=== PATIENT | male | born 1965 | race Hispanic/Latino ===

== ENCOUNTER 2017-05-16 02:18 | Emergency (ER) | payer SELFPAY ==
[2017-05-16] MEDS ORDERED: DILAUDID IM ONE (03:05)
[2017-05-16 03:25] LABS: Basophils % (Auto) 0.3 % (0.0-1.8); Eosinophils # (Auto) 0.1 K/mm3 (0.0-0.4); Eosinophils % (Auto) 1.5 % (0.0-4.3); Hematocrit 47.5 % (35.5-45.6); Hemoglobin 16.3 gm/dl (11.8-15.2); Lymphocytes # (Auto) 1.8 K/mm3 (1.2-5.4); Lymphocytes % (Auto) 21.6 % (13.4-35.0); Mean Corpuscular HGB Conc 34 % (32-34); Mean Corpuscular Hemoglobin 32 pg (28-32); Mean Corpuscular Volume 94 fl (84-94); Monocytes # (Auto) 0.7 K/mm3 (0.0-0.8); Monocytes % (Auto) 8.8 % (0.0-7.3); Platelet Count 189 K/mm3 (140-440); Red Blood Count 5.04 M/mm3 (3.65-5.03)
[2017-05-16] MEDS ORDERED: DILAUDID ONE (03:36)
[2017-05-16 03:59] LABS: Alanine Aminotransferase 96 units/L (7-56); Albumin 4.3 g/dL (3.9-5); BUN/Creatinine Ratio 18; Blood Urea Nitrogen 16 mg/dL (9-20); Calcium 9.6 mg/dL (8.4-10.2); Hemolysis Index 16; Lipase 25 units/L (13-60)
--- NOTE | 2017-05-16 04:16 | Ultrasound Report ---
FINAL REPORT EXAM: US TESTICULAR DOPPLER COMP HISTORY: sudden onset pain TECHNIQUE: Routine sonographic evaluation was obtained of the scrotum along with Doppler interrogation of the testicles. FINDINGS: The right testicle is normal size contour blood flow and echotexture measuring 5.3 cm x 2.5 cm x 3.7 cm. The right epididymis is normal in size and echotexture. Lateral to the right testicle is an echogenic mass measuring 4.4 cm x 1.4 cm x 1.3 cm. The left testicle is normal in size contour blood flow and echotexture measuring 5.1 cm x 2.3 cm x 3.4 cm. The left epididymis is normal in size and is remarkable for 5 millimeter cyst. Lateral to the left testicle is an echogenic mass measuring 5.1 cm x 1.7 cm x 1.7 cm. There is no evidence of hydrocele bilaterally. IMPRESSION: No evidence of testicular neoplasia, torsion, or hydrocele. Bilateral echogenic masses lateral to each testicle as described. Clinical correlation is needed with the patient has bilateral inguinal hernias to account for this. 5 mm left epididymal cyst.
--- NOTE | 2017-05-16 09:39 | Emergency Department Report ---
ED Abdominal Pain HPI - General Chief Complaint: Abdominal Pain Stated Complaint: ABD PAIN Time Seen by Provider: 05/16/17 09:39 Source: patient, family Mode of arrival: Wheelchair Limitations: No Limitations - History of Present Illness Initial Comments: Patient is a 52-year-old male who is presenting with lower abdominal pain. Patient states that pain started 24 hours ago. Patient states that the pain radiates into his scrotum is mainly located in the suprapubic area. Patient states he has not been able to urinate since 3 PM yesterday. Patient denies fever nausea vomiting diarrhea. Patient also denies any trauma. Patient states "it feels as though someone kicked me in my groin". Patient states the pain is a 10 out of 10 in severity. Patient denies any noticeable swelling to the scrotum. Severity scale (0 -10): 10 Quality: aching Consistency: constant Improves With: nothing Worsens With: movement Associated Symptoms: denies: nausea, vomiting, diarrhea, fever, dysuria, hematemesis, hematochezia, melena, hematuria - Related Data Home Medications Medication Instructions Recorded Confirmed Last Taken Tizanidine HCl [Zanaflex] 0 mg PO PRN PRN 07/14/14 07/14/14 07/14/14 Previous Rx's Medication Instructions Recorded Last Taken Type HYDROcodone/APAP 5-325 [[place] 1 each PO Q6HR PRN #15 tablet 07/14/14 Unknown Rx 5/325] Naproxen [Naprosyn] 500 mg PO BID #30 tablet 07/14/14 Unknown Rx methOCARBAMOL [Robaxin] 500 mg PO Q6H #30 tablet 07/14/14 Unknown Rx methylPREDNISolone [Medrol Dose 4 mg PO DAILY 6 Days tab 07/14/14 Unknown Rx Les] Ciprofloxacin HCl [Cipro] 500 mg PO BID #20 tablet 05/16/17 Unknown Rx HYDROcodone/APAP 5-325 [[place] 1 each PO Q6HR PRN #15 tablet 05/16/17 Unknown Rx 5/325] Phenazopyridine [Pyridium] 100 mg PO TID #10 tab 05/16/17 Unknown Rx Allergies Allergy/AdvReac Type Severity Reaction Status Date / Time No Known Allergies Allergy Verified 05/16/17 02:50 ED Review of Systems ROS: Stated complaint: ABD PAIN Other details as noted in HPI Comment: All other systems reviewed and negative ED Past Medical Hx - Past Medical History Previous Medical History?: Yes Additional medical history: back injury. kidney stones as teenager - Surgical History Past Surgical History?: Yes Hx Appendectomy: Yes - Social History Smoking Status: Never Smoker Substance Use Type: None - Medications Home Medications: Home Medications Medication Instructions Recorded Confirmed Last Taken Type HYDROcodone/APAP 5-325 [[place] 1 each PO Q6HR PRN #15 tablet 07/14/14 Unknown Rx 5/325] Naproxen [Naprosyn] 500 mg PO BID #30 tablet 07/14/14 Unknown Rx Tizanidine HCl [Zanaflex] 0 mg PO PRN PRN 07/14/14 07/14/14 07/14/14 History methOCARBAMOL [Robaxin] 500 mg PO Q6H #30 tablet 07/14/14 Unknown Rx methylPREDNISolone [Medrol Dose 4 mg PO DAILY 6 Days tab 07/14/14 Unknown Rx Les] Ciprofloxacin HCl [Cipro] 500 mg PO BID #20 tablet 05/16/17 Unknown Rx HYDROcodone/APAP 5-325 [[place] 1 each PO Q6HR PRN #15 tablet 05/16/17 Unknown Rx 5/325] Phenazopyridine [Pyridium] 100 mg PO TID #10 tab 05/16/17 Unknown Rx ED Physical Exam - General Limitations: No Limitations General appearance: alert, in no apparent distress - Head Head exam: Present: atraumatic, normocephalic - Eye Eye exam: Present: normal appearance - ENT ENT exam: Present: mucous membranes moist - Neck Neck exam: Present: normal inspection - Respiratory Respiratory exam: Present: normal lung sounds bilaterally. Absent: respiratory distress - Cardiovascular Cardiovascular Exam: Present: regular rate, normal rhythm. Absent: systolic murmur, diastolic murmur, rubs, gallop - GI/Abdominal GI/Abdominal exam: Present: soft, tenderness (suprapubic), normal bowel sounds. Absent: guarding, rebound - Rectal Rectal exam: Present: deferred - exam: Present: testicular tenderness. Absent: urethral discharge, scrotal swelling External exam: Absent: erythema, swelling, ecchymosis - Extremities Exam Extremities exam: Present: normal inspection - Back Exam Back exam: Present: normal inspection - Neurological Exam Neurological exam: Present: alert, oriented X3 - Psychiatric Psychiatric exam: Present: normal affect, normal mood - Skin Skin exam: Present: warm, dry, intact, normal color. Absent: rash ED Course Vital Signs 05/16/17 05/16/17 02:22 02:45 Temperature 97.7 F 97.7 F Pulse Rate 83 78 Respiratory 18 18 Rate Blood Pressure 156/85 156/85 O2 Sat by Pulse 98 98 Oximetry ED Medical Decision Making - Lab Data Result diagrams: 05/16/17 02:57 05/16/17 02:57 Lab Results 05/16/17 05/16/17 05/16/17 Range/Units 02:57 02:57 09:48 WBC 8.1 (4.5-11.0) K/mm3 RBC 5.04 H (3.65-5.03) M/mm3 Hgb 16.3 H (11.8-15.2) gm/dl Hct 47.5 H (35.5-45.6) % MCV 94 (84-94) fl MCH 32 (28-32) pg MCHC 34 (32-34) % RDW 14.0 (13.2-15.2) % Plt Count 189 (140-440) K/mm3 Lymph % (Auto) 21.6 (13.4-35.0) % Jerome % (Auto) 8.8 H (0.0-7.3) % Eos % (Auto) 1.5 (0.0-4.3) % Baso % (Auto) 0.3 (0.0-1.8) % Lymph # 1.8 (1.2-5.4) K/mm3 Jerome # 0.7 (0.0-0.8) K/mm3 Eos # 0.1 (0.0-0.4) K/mm3 Baso # 0.0 (0.0-0.1) K/mm3 Seg Neutrophils % 67.8 (40.0-70.0) % Seg Neutrophils # 5.5 (1.8-7.7) K/mm3 Sodium 142 (137-145) mmol/L Potassium 4.5 (3.6-5.0) mmol/L Chloride 103.3 (98-107) mmol/L Carbon Dioxide 22 (22-30) mmol/L Anion Gap 21 mmol/L BUN 16 (9-20) mg/dL Creatinine 0.9 (0.8-1.5) mg/dL Estimated GFR > 60 ml/min BUN/Creatinine Ratio 18 % Glucose 107 H (75-100) mg/dL Calcium 9.6 (8.4-10.2) mg/dL Total Bilirubin 1.10 (0.1-1.2) mg/dL AST 73 H (5-40) units/L ALT 96 H (7-56) units/L Alkaline Phosphatase 60 (35-129) units/L Total Protein 7.9 (6.3-8.2) g/dL Albumin 4.3 (3.9-5) g/dL Albumin/Globulin Ratio 1.2 % Lipase 25 (13-60) units/L Urine Color Lisette (Yellow) Urine Turbidity Cloudy (Clear) Urine pH 5.0 (5.0-7.0) Ur Specific [place] 1.030 (1.003-1.030) Urine Protein 30 mg/dl (Negative) mg/dL Urine Glucose (UA) 50 (Negative) mg/dL Urine Ketones Tr (Negative) mg/dL Urine Blood Lg (Negative) Urine Nitrite Neg (Negative) Urine Bilirubin Neg (Negative) Urine Urobilinogen 4.0 (<2.0) mg/dL Ur Leukocyte Esterase Sm (Negative) Urine WBC (Auto) 34.0 H (0.0-6.0) /HPF Urine RBC (Auto) > 182.0 (0.0-6.0) /HPF U Epithel Cells (Auto) 5.0 (0-13.0) /HPF Urine Mucus 3+ /HPF - Radiology Data Ultrasound of the testicles and scrotal interpreted as bilateral scrotal hernias. There is no evidence of epididymoorchitis - Medical Decision Making 11:03 AM patient is feeling better after Percocet. Patient was able to urinate freely on his own. Urinalysis shows hematuria and possible infection. Patient be started on antibiotics be discharged home at this time. Patient also be given surgery follow-up regarding hernias Critical care attestation.: If time is entered above; I have spent that time in minutes in the direct care of this critically ill patient, excluding procedure time. ED Disposition Clinical Impression: Acute cystitis with hematuria Inguinal hernia Qualifiers: Obstruction and gangrene presence: without obstruction or gangrene Laterality: bilateral Recurrence: non-recurrent Qualified Code(s): K40.20 - Bilateral inguinal hernia, without obstruction or gangrene, not specified as recurrent Disposition: DC-01 TO HOME OR SELFCARE Is pt being admited?: No Does the pt Need Aspirin: No Condition: Fair Instructions: Urinary Tract Infection in Men (ED), Inguinal Hernia (ED) Prescriptions: Ciprofloxacin HCl [Cipro] 500 mg PO BID #20 tablet HYDROcodone/APAP 5-325 [[place] 5/325] 1 each PO Q6HR PRN #15 tablet PRN Reason: Pain Phenazopyridine [Pyridium] 100 mg PO TID #10 tab Referrals: MARIA EUGENIA LAGUNA MD [Staff Physician] - 3-5 Days
[2017-05-16] MEDS ORDERED: PERCOCET 5/325 PO ONE (09:41)
[2017-05-16 10:15] LABS: Bilirubin,Urine NEG (Negative); Blood,Urine LG (Negative); Color,Urine Amber (Yellow); Mucus,Urine 3+ /HPF; Nitrite,Urine NEG (Negative)
[2017-05-16 10:18] LABS: RBC,Urine > 182.0 /HPF (0.0-6.0)
[2017-05-16 11:59] VITALS: BP 143/89
== END 2017-05-16 11:58 | disposition home or self-care (01) ==
LOC: ED 02:18
DX: K40.90 Unilateral inguinal hernia, without obstruction or gangrene, not specified as recurrent (principal); N30.01 Acute cystitis with hematuria
CPT/HCPCS: 36415; 80053; 81001; 83690; 85025; 93975; 96372; 99284; J1170

== ENCOUNTER 2019-07-01 08:33 | Emergency (ER) | payer SELFPAY ==
[2019-07-01] MEDS ORDERED: IPRATROPIUM/ALBUTEROL SULFATE 3 ML AMPUL.NEB IH ONE (09:28)
[2019-07-01 09:29] LABS: ABG Base Excess 1.7 mmol/L (-2.0-3.0); ABG HCO3 26.6 mmol/L (20.0-26.0); ABG Methemoglobin 0.5 % (0.0-1.5); ABG Oxygen Saturation 99.1 % (95.0-99.0); ABG PCO2 42.4 mm Hg; ABG PH 7.415 pH Units (7.350-7.450); ABG PO2 167.7 mm Hg (80.0-90.0)
[2019-07-01 09:33] LABS: Basophils % (Auto) 0.4 % (0.0-1.8); Eosinophils # (Auto) 0.1 K/mm3 (0.0-0.4); Eosinophils % (Auto) 2.3 % (0.0-4.3); Hematocrit 44.6 % (35.5-45.6); Hemoglobin 15.3 gm/dl (11.8-15.2); Lymphocytes # (Auto) 1.8 K/mm3 (1.2-5.4); Mean Corpuscular HGB Conc 34 % (32-34); Mean Corpuscular Volume 95 fl (84-94); Monocytes # (Auto) 0.5 K/mm3 (0.0-0.8); Monocytes % (Auto) 11.5 % (0.0-7.3); Platelet Count 197 K/mm3 (140-440); Red Cell Distribution Width 14.1 % (13.2-15.2)
[2019-07-01 09:56] LABS: Alanine Aminotransferase 42 units/L (7-56); BUN/Creatinine Ratio 17; Blood Urea Nitrogen 17 mg/dL (9-20); Hemolysis Index 20
--- NOTE | 2019-07-01 10:02 | Emergency Department Report ---
HPI - General Chief Complaint: Dyspnea/Respdistress Time Seen by Provider: 07/01/19 09:04 - HPI HPI: 54-year-old male presents to the emergency department from home with complaint of headache, lightheadedness, shortness of breath that started after the patient was working in his garage from about 1 AM until 6 AM and he had a gas generator running during this time. He says he was going in and out of the garage and was not there for the full 6 hours. He denies any numbness, blurry vision, facial asymmetry, weakness. He denies any significant past medical history. He denies any tobacco or illicit drug use. ED Past Medical Hx - Past Medical History Previous Medical History?: Yes Additional medical history: back injury. kidney stones as teenager - Surgical History Past Surgical History?: Yes Hx Appendectomy: Yes - Social History Smoking Status: Never Smoker Substance Use Type: None - Medications Home Medications: Home Medications Medication Instructions Recorded Confirmed Last Taken Type HYDROcodone/APAP 5-325 [[place] 1 each PO Q6HR PRN #15 tablet 07/14/14 Unknown Rx 5/325] Naproxen [Naprosyn] 500 mg PO BID #30 tablet 07/14/14 Unknown Rx Tizanidine HCl [Zanaflex] 0 mg PO PRN PRN 07/14/14 07/14/14 07/14/14 History methOCARBAMOL [Robaxin] 500 mg PO Q6H #30 tablet 07/14/14 Unknown Rx methylPREDNISolone [Medrol Dose 4 mg PO DAILY 6 Days tab 07/14/14 Unknown Rx Les] Ciprofloxacin HCl [Cipro] 500 mg PO BID #20 tablet 05/16/17 Unknown Rx HYDROcodone/APAP 5-325 [[place] 1 each PO Q6HR PRN #15 tablet 05/16/17 Unknown Rx 5/325] Phenazopyridine [Pyridium] 100 mg PO TID #10 tab 05/16/17 Unknown Rx ED Review of Systems ROS: Stated complaint: CARBON MINOXIDE POSION Other details as noted in HPI Comment: All other systems reviewed and negative Constitutional: denies: chills, fever Eyes: denies: eye pain, vision change ENT: denies: ear pain, throat pain Respiratory: shortness of breath. denies: cough Cardiovascular: denies: palpitations, edema Gastrointestinal: denies: abdominal pain, vomiting Genitourinary: denies: dysuria, discharge Musculoskeletal: denies: back pain, arthralgia Skin: denies: rash, lesions Neurological: headache, other (Dizziness/lightheadedness) Physical Exam - Physical Exam Vital Signs: Vital Signs 07/01/19 07/01/19 07/01/19 08:46 09:32 09:50 Temperature 97.8 F Pulse Rate 80 69 Pulse Rate [ 66 Anterior Bilateral Throughout] Respiratory 20 14 Rate Respiratory 20 Rate [Anterior Bilateral Throughout] Blood Pressure 139/83 121/79 [Right] O2 Sat by Pulse 99 Oximetry Physical Exam: GENERAL: The patient is well-developed well-nourished. HENT: Normocephalic. Atraumatic. Patient has moist mucous membranes. EYES: Extraocular motions are intact. Pupils equal reactive to light bilaterally. No nystagmus. NECK: Supple. Trachea is midline. CHEST/LUNGS: Clear to auscultation. Mild tachypnea but no accessory muscle use. There is no respiratory distress noted. HEART/CARDIOVASCULAR: Regular. There is no tachycardia. There is no murmur. ABDOMEN: Abdomen is soft, nontender. Patient has normal bowel sounds. There is no abdominal distention. SKIN: Skin is warm and dry. NEURO: The patient is awake, alert, and oriented. The patient is cooperative. The patient has no focal neurologic deficits. Normal speech. Cranial nerves II through XII grossly intact. MUSCULOSKELETAL: There is no tenderness or deformity. There is no limitation range of motion. There is no evidence of acute injury. ED Course Vital Signs 07/01/19 07/01/19 07/01/19 08:46 09:32 09:50 Temperature 97.8 F Pulse Rate 80 69 Pulse Rate [ 66 Anterior Bilateral Throughout] Respiratory 20 14 Rate Respiratory 20 Rate [Anterior Bilateral Throughout] Blood Pressure 139/83 121/79 [Right] O2 Sat by Pulse 99 Oximetry - ABG Interpretation Ph: 7.415 PCO2: 42 PO2: 167 Bicarbonate: 26 Interpretation: normal ED Medical Decision Making - Lab Data Result diagrams: 07/01/19 09:13 07/01/19 09:13 - EKG Data -: EKG Interpreted by Ri EKG shows normal: sinus rhythm (PACs), axis, intervals, QRS complexes, ST-T waves Rate: normal - EKG Data When compared to previous EKG there are: previous EKG unavailable Interpretation: normal EKG - Radiology Data Radiology results: image reviewed interpreted by me: Chest x-ray does not show any acute process. There are no pleural effusions, obvious pneumonia and there is no pneumothorax. - Medical Decision Making This patient presents to the emergency department with a complaint of a headache, some shortness of breath, after working in his garage for about 5 hours intermittently with a gas generator running. The patient appears to have had carbon monoxide exposure as his carboxyhemoglobin level came in at 17. He was placed on a nonrebreather for a few hours and the repeat carboxyhemoglobin level came down to 3. I was in contact with poison control who recommended monitoring for a few hours and making sure the carboxyhemoglobin level had gone down. They also asked for a second troponin, which did come back negative. The patient was reevaluated multiple times and says he is feeling greatly improved and his symptoms have resolved. The patient never had any focal, motor or sensory deficits and his cranial nerves have remained intact. We discussed proper ventilation. The patient will return to the emergency department with any worsening of his symptoms or any acute distress. - Differential Diagnosis Carbon monoxide poisoning, migraine, asthma, bronchitis Critical Care Time: No Critical care attestation.: If time is entered above; I have spent that time in minutes in the direct care of this critically ill patient, excluding procedure time. ED Disposition Clinical Impression: Carbon monoxide exposure Disposition: DC-01 TO HOME OR SELFCARE Is pt being admited?: No Condition: Stable Instructions: Carbon Monoxide Exposure (ED) Additional Instructions: Please make sure that your garage door is open or there is appropriate ventilation when using your generator or if the car engine is running. Please follow-up with your primary care physician in the next few days. Return to the emergency department with any worsening of your symptoms or any acute distress. Referrals: PRIMARY CARE, [Primary Care Provider] - 2-3 Days Time of Disposition: 15:00
--- NOTE | 2019-07-01 10:22 | XRay Report ---
CHEST 1 VIEW 07/01/2019 9:28 AM INDICATION / CLINICAL INFORMATION: SOB. COMPARISON: None available. FINDINGS: SUPPORT DEVICES: None. HEART / MEDIASTINUM: Normal heart size. Atherosclerosis in the thoracic aorta. LUNGS / PLEURA: No significant pulmonary or pleural abnormality. No pneumothorax. ADDITIONAL FINDINGS: No significant additional findings. IMPRESSION: 1. No acute findings. Signer Name: Montana Gutiérrez MD Signed: 07/01/2019 10:18 AM Workstation Name: [id number]
[2019-07-01 13:36] LABS: ABG Base Excess 0.9 mmol/L (-2.0-3.0); ABG HCO3 25.7 mmol/L (20.0-26.0); ABG Methemoglobin 0.7 % (0.0-1.5); ABG Oxygen Saturation 99.6 % (95.0-99.0); ABG PCO2 41.6 mm Hg; ABG PH 7.409 pH Units (7.350-7.450)
[2019-07-01 13:51] LABS: ABG PO2 513.7 mm Hg (80.0-90.0)
[2019-07-01 16:05] VITALS: BP 119/75
== END 2019-07-01 15:40 | disposition home or self-care (01) ==
LOC: ED 08:33
DX: Z57.5 Occupational exposure to toxic agents in other industries (principal); Z90.49 Acquired absence of other specified parts of digestive tract; Z79.899 Other long term (current) drug therapy
CPT/HCPCS: 36415; 71045; 80053; 82803; 84484; 85025; 93005; 93010; 94640; 94644

== ENCOUNTER 2020-08-03 05:09 | Emergency (ER) | payer SELFPAY ==
[2020-08-03] MEDS ORDERED: IBUPROFEN 800 MG TAB PO ONE (05:21)
[2020-08-03] MEDS ORDERED: oxyCODONE /ACETAMINOPHEN 5-325MG TAB PO ONE (05:21)
[2020-08-03] MEDS ORDERED: TETANUS,DIPH,PERTUSS(ACELL) VACCINE 0.5 ML SYRINGE IM ONE (05:21)
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
[2020-08-03 06:35] VITALS: BP 125/82
== END 2020-08-03 07:15 | disposition home or self-care (01) ==
LOC: ED 05:09
DX: T21.15XA Burn of first degree of buttock, initial encounter (principal); T24.219A Burn of second degree of unspecified thigh, initial encounter; Z79.899 Other long term (current) drug therapy; Z90.49 Acquired absence of other specified parts of digestive tract; X08.8XXA Exposure to other specified smoke, fire and flames, initial encounter; Y93.89 Activity, other specified; Y92.89 Other specified places as the place of occurrence of the external cause; Y99.8 Other external cause status
CPT/HCPCS: 90471; 90715; 99282

== ENCOUNTER 2020-09-23 10:28 | Emergency (ER) | payer SELFPAY ==
[2020-09-23] MEDS ORDERED: dexAMETHasone 20 MG/5 ML VIAL IV ONE (11:13)
[2020-09-23] MEDS ORDERED: MORPHINE 4 MG/1 ML INJ IV ONE (11:13)
[2020-09-23] MEDS ORDERED: ONDANSETRON 4 MG/2 ML INJ IV ONE (11:16)
--- NOTE | 2020-09-23 11:17 | Emergency Department Report ---
ED Back Pain/Injury HPI - General Chief Complaint: Back Pain/Injury Stated Complaint: BACK PAIN Time Seen by Provider: 09/23/20 11:07 Source: patient Limitations: No Limitations - History of Present Illness Initial Comments: Chief complaint: "Pressure in my back." HPI: This is a 55-year-old male with history of chronic back pain, kidney stone, inguinal hernia who presents with lower back pain. Pain pressure sensation. Severe. No recent trauma. Patient denies leg weakness. Denies fever. 10 out of 10 pain. No radiation. No vomiting. No hematuria. MD Complaint: back pain -: Sudden, This morning Similar Symptoms Previously: Yes Place: home Severity: severe Severity scale (0 -10): 10 Quality: other (Pressure sensation) Consistency: constant Improves With: none Worsens With: none Associated Symptoms: denies other symptoms Treatments Prior to Arrival: other (Patient received ketorolac via EMS) - Related Data Home Medications Medication Instructions Recorded Confirmed Last Taken Tizanidine HCl [Zanaflex] 0 mg PO PRN PRN 07/14/14 07/14/14 07/14/14 Previous Rx's Medication Instructions Recorded Last Taken Type HYDROcodone/APAP 5-325 [[place] 1 each PO Q6HR PRN #15 tablet 07/14/14 Unknown Rx 5/325] Naproxen [Naprosyn] 500 mg PO BID #30 tablet 07/14/14 Unknown Rx methOCARBAMOL [Robaxin] 500 mg PO Q6H #30 tablet 07/14/14 Unknown Rx methylPREDNISolone [Medrol Dose 4 mg PO DAILY 6 Days tab 07/14/14 Unknown Rx Les] Ciprofloxacin HCl [Cipro] 500 mg PO BID #20 tablet 05/16/17 Unknown Rx HYDROcodone/APAP 5-325 [[place] 1 each PO Q6HR PRN #15 tablet 05/16/17 Unknown Rx 5/325] Phenazopyridine [Pyridium] 100 mg PO TID #10 tab 05/16/17 Unknown Rx HYDROcodone/APAP 5-325 [[place] 1 each PO Q4HR PRN #15 tablet 08/03/20 Unknown Rx 5/325] Ibuprofen [Motrin 400 MG tab] 400 mg PO TID 5 Days #15 tablet 08/03/20 Unknown Rx Silver Sulfadiazine [Silvadene] 1 applic TP BID 14 Days #1 08/03/20 Unknown Rx cream..g. Cyclobenzaprine [Flexeril] 10 mg PO TID PRN #20 tablet 09/23/20 Unknown Rx Ibuprofen [Motrin 800 MG tab] 800 mg PO Q8HR PRN #15 tablet 09/23/20 Unknown Rx oxyCODONE /ACETAMINOPHEN [Percocet 1 tab PO Q6HR PRN #10 tablet 09/23/20 Unknown Rx 5/325] Allergies Allergy/AdvReac Type Severity Reaction Status Date / Time No Known Allergies Allergy Verified 05/16/17 02:50 ED Review of Systems ROS: Stated complaint: BACK PAIN Other details as noted in HPI Comment: All other systems reviewed and negative Constitutional: denies: fever, malaise Respiratory: denies: shortness of breath Cardiovascular: denies: chest pain Gastrointestinal: denies: abdominal pain, nausea, vomiting Musculoskeletal: back pain ED Past Medical Hx - Past Medical History Previous Medical History?: Yes Additional medical history: back injury. kidney stones as teenager - Surgical History Past Surgical History?: Yes Hx Appendectomy: Yes - Social History Smoking Status: Never Smoker Substance Use Type: None - Medications Home Medications: Home Medications Medication Instructions Recorded Confirmed Last Taken Type HYDROcodone/APAP 5-325 [[place] 1 each PO Q6HR PRN #15 tablet 07/14/14 Unknown Rx 5/325] Naproxen [Naprosyn] 500 mg PO BID #30 tablet 07/14/14 Unknown Rx Tizanidine HCl [Zanaflex] 0 mg PO PRN PRN 07/14/14 07/14/14 07/14/14 History methOCARBAMOL [Robaxin] 500 mg PO Q6H #30 tablet 07/14/14 Unknown Rx methylPREDNISolone [Medrol Dose 4 mg PO DAILY 6 Days tab 07/14/14 Unknown Rx Les] Ciprofloxacin HCl [Cipro] 500 mg PO BID #20 tablet 05/16/17 Unknown Rx HYDROcodone/APAP 5-325 [[place] 1 each PO Q6HR PRN #15 tablet 05/16/17 Unknown Rx 5/325] Phenazopyridine [Pyridium] 100 mg PO TID #10 tab 05/16/17 Unknown Rx HYDROcodone/APAP 5-325 [[place] 1 each PO Q4HR PRN #15 tablet 08/03/20 Unknown Rx 5/325] Ibuprofen [Motrin 400 MG tab] 400 mg PO TID 5 Days #15 tablet 08/03/20 Unknown Rx Silver Sulfadiazine [Silvadene] 1 applic TP BID 14 Days #1 08/03/20 Unknown Rx cream..g. Cyclobenzaprine [Flexeril] 10 mg PO TID PRN #20 tablet 09/23/20 Unknown Rx Ibuprofen [Motrin 800 MG tab] 800 mg PO Q8HR PRN #15 tablet 09/23/20 Unknown Rx oxyCODONE /ACETAMINOPHEN [Percocet 1 tab PO Q6HR PRN #10 tablet 09/23/20 Unknown Rx 5/325] ED Physical Exam - General Limitations: No Limitations General appearance: alert, in no apparent distress, other (Patient is sleeping appears comfortable) - Head Head exam: Present: atraumatic, normocephalic - Eye Eye exam: Present: normal appearance - ENT ENT exam: Present: mucous membranes moist - Neck Neck exam: Present: normal inspection, full ROM - Respiratory Respiratory exam: Present: normal lung sounds bilaterally. Absent: respiratory distress - Cardiovascular Cardiovascular Exam: Present: regular rate, normal rhythm, normal heart sounds. Absent: systolic murmur, diastolic murmur, rubs, gallop - GI/Abdominal GI/Abdominal exam: Present: soft, normal bowel sounds. Absent: distended, tenderness, guarding, rebound - Rectal Rectal exam: Present: deferred - Extremities Exam Extremities exam: Present: normal inspection - Back Exam Back exam: Present: normal inspection, full ROM. Absent: CVA tenderness (R), CVA tenderness (L), muscle spasm, paraspinal tenderness - Neurological Exam Neurological exam: Present: alert, oriented X3, normal gait - Psychiatric Psychiatric exam: Present: normal affect, normal mood - Skin Skin exam: Present: warm, dry, intact, normal color. Absent: rash ED Course Vital Signs 09/23/20 09/23/20 10:32 12:07 Temperature 98.6 F Pulse Rate 84 99 H Respiratory 24 16 Rate Blood Pressure 170/92 138/67 [Right] O2 Sat by Pulse 96 93 Oximetry ED Medical Decision Making - Radiology Data Radiology results: report reviewed Patient Name: MAXIME ALVARADO Gender: Male Date of : 1965 Referring Provider: ROSEY PERES Organization: [facility] Accession Number: [id number] Requested Date: September 23, 2020 11:14 Report Status: Final Requested Procedure: 1 Procedure Description: CT lumbar spine wo con Modality: CT Findings Reporting MD: Ezio Gonzalez Dictation Time: September 23, 2020 11:04 Supervisor Accounting Clerks: Not available Glassie Date: CT lumbar spine wo con INDICATION / CLINICAL INFORMATION: 55 years Male; severe back pain. TECHNIQUE: Axial CT images of the lumbar spine were obtained with sagittal and coronal reconstructions. All CT scans at this location are performed using CT dose reduction for ALARA by means of automated exposure control. COMPARISON: None available. FINDINGS: POST-SURGICAL CHANGES: None. ALIGNMENT: There is mild curvature the lumbar spine, convex toward the left at. There is no significant spondylolisthesis. VERTEBRAE: There is a well-corticated lucency involving the right pars interarticularis of L5 most consistent with spondylolysis . There is multilevel anterior osteophytic formation involving lumbar segments at. There is no CT evidence of acute compression or fracture. INTERVERTEBRAL DISCS: There are degenerative endplate cystic changes on the left L5-S1 with mild left neural foraminal narrowing at. There is a slight disc bulge at L4-5 without central stenosis. Th ere is mild right foraminal narrowing at this level. The disc bulge L3-4 appears to mildly flatten the ventral thecal sac. The neural foramen are patent at. There is a milder disc bulge at L3-4 also with mild deformity of the thecal sac at. PARASPINAL SOFT TISSUES: No significant abnormality. ADDITIONAL FINDINGS: None. IMPRESSION: 1. The findings are most consistent with spondylolysis on the right at L5 as detailed above. There is no clear CT evidence of acute fracture involving the lumbar spine. 2. There are multilevel degenerative the changes as detailed above. Signer Name: Ezio Gonzalez MD Signed: 09/23/2020 11:04 AM Workstation Name: [id number] Patient Name: MAXIME ALVARADO Gender: Male Date of : 1965 Referring Provider: ROSEY PERES Organization: [facility] Accession Number: [id number] Requested Date: September 23, 2020 11:14 Report Status: Final Requested Procedure: 1 Procedure Description: CT abdomen pelvis wo con Modality: CT Findings Reporting MD: Adam Sweet Dictation Time: September 23, 2020 11:03 Supervisor Accounting Clerks: Not available Glassie Date: CT ABDOMEN AND PELVIS WITHOUT CONTRAST INDICATION / CLINICAL INFORMATION: back pain hx of kidney stone. TECHNIQUE: Axial CT images were obtained through the abdomen and pelvis without IV contrast. Sagittal and coronal reformatted images. All CT scans at this location are performed using CT dose reduction for ALARA by means of automated exposure control. COMPARISON: None available. FINDINGS: LOWER CHEST: No significant abnormality. LIVER: No significant abnormality. GALLBLADDER: No significant abnormality. BILE DUCTS: No significant abnormality. PANCREAS: No significant abnormality. SPLEEN: No significant abnormality. ADRENALS: No significant abnormality. RIGHT KIDNEY and URETER: A few tiny punctate calyceal stones are suspected near the inferior pole. No focal renal lesion or hydronephrosis. No obvious ureteral stones. LEFT KIDNEY and URETER: A few tiny punctate calyceal stones are suspected. No focal renal lesion or hydronephrosis. No obvious ureteral stones. STOMACH and SMALL BOWEL: No significant abnormality. COLON: There is moderate fecal retention. No obstruction or focal inflammation. APPENDIX: Not identified PERITONEUM: No free fluid. No free air. No fluid collection. LYMPH NODES: No significant adenopathy. AORTA and ARTERIES: No significant abnormality. IVC and VEINS: No significant abnormality. URINARY BLADDER: No significant abnormality. REPRODUCTIVE ORGANS: No significant abnormality. ADDITIONAL FINDINGS: None. SKELETAL SYSTEM: Mild thoracolumbar spondylosis. No acute osseous findings. IMPRESSION: A few bilateral punctate renal calyceal stones are identified. No ureteral stones or hydronephrosis. Mild to moderate constipation. Mild degenerative changes in the thoracolumbar spine. Signer Name: Adam Sweet Jr, MD [facility] [address] , [address] [place] [address] P [phone] [facility] - Report exported on September 23, 2020 13:14:41 -0500 - Page 2 of 2 Signed: 09/23/2020 11:03 AM Workstation Name: [id number] - Medical Decision Making Acute on chronic back pain due to multilevel lumbar degenerative disc disease. CT scan ruled out obstructive ureteral stone. Refer to spine surgeon Dr. Castanon. Percocet ibuprofen Flexeril prescribed. No red flags to indicate acute emergent condition such as cauda equina or spinal cord. No recent trauma, fever, IV drug use, advanced age. Critical care attestation.: If time is entered above; I have spent that time in minutes in the direct care of this critically ill patient, excluding procedure time. ED Disposition Clinical Impression: Acute back pain, Lumbar degenerative disc disease, History of kidney stones Disposition: TO HOME OR SELFCARE Is pt being admited?: No Does the pt Need Aspirin: No Condition: Stable Instructions: Degenerative Disk Disease Prescriptions: Cyclobenzaprine [Flexeril] 10 mg PO TID PRN #20 tablet PRN Reason: Muscle Spasm Ibuprofen [Motrin 800 MG tab] 800 mg PO Q8HR PRN #15 tablet PRN Reason: Pain , Severe (7-10) oxyCODONE /ACETAMINOPHEN [Percocet 5/325] 1 tab PO Q6HR PRN #10 tablet PRN Reason: Pain Referrals: PABLO CASTANON II, MD [Staff Physician] - 3-5 Days
--- NOTE | 2020-09-23 12:07 | Cat Scan Report ---
CT ABDOMEN AND PELVIS WITHOUT CONTRAST INDICATION / CLINICAL INFORMATION: back pain hx of kidney stone. TECHNIQUE: Axial CT images were obtained through the abdomen and pelvis without IV contrast. Sagittal and horan l reformatted images. All CT scans at this location are performed using CT dose reduction for ALARA b y means of automated exposure control. COMPARISON: None available. FINDINGS: LOWER CHEST: No significant abnormality. LIVER: No significant abnormality. GALLBLADDER: No significant abnormality. BILE DUCTS: No significant abnormality. PANCREAS: No significant abnormality. SPLEEN: No significant abnormality. ADRENALS: No significant abnormality. RIGHT KIDNEY and URETER: A few tiny punctate calyceal stones are suspected near the inferior pole. No focal renal lesion or hydronephrosis. No obvious ureteral stones. LEFT KIDNEY and URETER: A few tiny punctate calyceal stones are suspected. No focal renal lesion or h ydronephrosis. No obvious ureteral stones. STOMACH and SMALL BOWEL: No significant abnormality. COLON: There is moderate fecal retention. No obstruction or focal inflammation. APPENDIX: Not identified PERITONEUM: No free fluid. No free air. No fluid collection. LYMPH NODES: No significant adenopathy. AORTA and ARTERIES: No significant abnormality. IVC and VEINS: No significant abnormality. URINARY BLADDER: No significant abnormality. REPRODUCTIVE ORGANS: No significant abnormality. ADDITIONAL FINDINGS: None. SKELETAL SYSTEM: Mild thoracolumbar spondylosis. No acute osseous findings. IMPRESSION: A few bilateral punctate renal calyceal stones are identified. No ureteral stones or hydronephrosis. Mild to moderate constipation. Mild degenerative changes in the thoracolumbar spine. Signer Name: Adam Sweet Jr, MD Signed: 09/23/2020 12:03 PM Workstation Name: [id number]
[2020-09-23 12:08] VITALS: BP 138/67
--- NOTE | 2020-09-23 12:08 | Cat Scan Report ---
CT lumbar spine wo con INDICATION / CLINICAL INFORMATION: 55 years Male; severe back pain. TECHNIQUE: Axial CT images of the lumbar spine were obtained with sagittal and coronal reconstructions. All CT s cans at this location are performed using CT dose reduction for ALARA by means of automated exposure control. COMPARISON: None available. FINDINGS: POST-SURGICAL CHANGES: None. ALIGNMENT: There is mild curvature the lumbar spine, convex toward the left at. There is no significa nt spondylolisthesis. VERTEBRAE: There is a well-corticated lucency involving the right pars interarticularis of L5 most co nsistent with spondylolysis . There is multilevel anterior osteophytic formation involving lumbar seg ments at. There is no CT evidence of acute compression or fracture. INTERVERTEBRAL DISCS: There are degenerative endplate cystic changes on the left L5-S1 with mild left neural foraminal narrowing at. There is a slight disc bulge at L4-5 without central stenosis. There is mild right foraminal narrowing at this level. The disc bulge L3-4 appears to mildly flatten the ventral thecal sac. The neural foramen are patent a t. There is a milder disc bulge at L3-4 also with mild deformity of the thecal sac at. PARASPINAL SOFT TISSUES: No significant abnormality. ADDITIONAL FINDINGS: None. IMPRESSION: 1. The findings are most consistent with spondylolysis on the right at L5 as detailed above. There is no clear CT evidence of acute fracture involving the lumbar spine. 2. There are multilevel degenerative the changes as detailed above. Signer Name: Ezio Gonzalez MD Signed: 09/23/2020 12:04 PM Workstation Name: [id number]
== END 2020-09-23 16:19 | disposition home or self-care (01) ==
LOC: ED 10:28
DX: M51.36 Other intervertebral disc degeneration, lumbar region (principal); Z87.442 Personal history of urinary calculi; K40.90 Unilateral inguinal hernia, without obstruction or gangrene, not specified as recurrent; Z90.49 Acquired absence of other specified parts of digestive tract; Z98.890 Other specified postprocedural states; Z79.899 Other long term (current) drug therapy
CPT/HCPCS: 72131; 74176; 96374; 96375; 99284; J1100; J2270; J2405

== ENCOUNTER 2021-01-16 14:29 | Inpatient (IN) | payer OTHER, SELFPAY ==
[2021-01-16] MEDS ORDERED: dexAMETHasone 4 MG/ML VIAL IV ONE (15:17)
[2021-01-16] MEDS ORDERED: SODIUM CHLORIDE 0.9% 1000 ML 1,000 ML IV ONE (15:17)
[2021-01-16] MEDS ORDERED: IPRATROPIUM/ALBUTEROL SULFATE 3 ML AMPUL.NEB IH ONE (15:17)
[2021-01-16 15:42] LABS: Basophils % (Auto) 0.4 % (0.0-1.8); Hematocrit 48.1 % (35.5-45.6); Hemoglobin 16.8 gm/dl (11.8-15.2); Lymphocytes # (Auto) 0.3 K/mm3 (1.2-5.4); Lymphocytes % (Auto) 8.5 % (13.4-35.0); Mean Corpuscular HGB Conc 35 % (32-34); Mean Corpuscular Volume 93 fl (84-94); Monocytes # (Auto) 0.4 K/mm3 (0.0-0.8); Monocytes % (Auto) 11.4 % (0.0-7.3); Platelet Count 113 K/mm3 (140-440); Red Blood Count 5.16 M/mm3 (3.65-5.03); Red Cell Distribution Width 13.6 % (13.2-15.2)
[2021-01-16] MEDS ORDERED: AZITHROMYCIN/NS 500 MG/250 ML 500 MG/250 ML BAG IV ONE (15:47)
[2021-01-16] MEDS ORDERED: cefTRIAXone/NS 2 GM/100 ML 2 GM/100 ML BAG IV ONE (15:47)
--- NOTE | 2021-01-16 15:51 | XRay Report ---
XR chest routine 2V INDICATION / CLINICAL INFORMATION: SOB, CP. COMPARISON: 07/01/2019 FINDINGS: SUPPORT DEVICES: None. HEART /PULMONARY VASCULATURE: No significant abnormality. LUNGS / PLEURA: Patchy bilateral airspace consolidation, most pronounced within the left mid and lowe r lung. No sizable pleural effusion. No pneumothorax. ADDITIONAL FINDINGS: No significant additional findings. IMPRESSION: Bilateral pulmonary airspace disease, most pronounced within the left mid to lower lung. Findings are most consistent with pneumonia. Signer Name: Jose Hein MD Signed: 01/16/2021 3:47 PM Workstation Name: [id number]
[2021-01-16 15:57] LABS: Alanine Aminotransferase 26 units/L (7-56); Albumin 3.3 g/dL (3.9-5); BUN/Creatinine Ratio 23; Blood Urea Nitrogen 18 mg/dL (9-20); Calcium 8.5 mg/dL (8.4-10.2); Hemolysis Index 6
--- NOTE | 2021-01-16 16:35 | Emergency Department Report ---
- General Chief Complaint: Upper Respiratory Infection Stated Complaint: COUGHING/FEVER Time Seen by Provider: 01/16/21 15:06 Source: patient, EMS Mode of arrival: Ambulatory Limitations: No Limitations - History of Present Illness Initial Comments: Patient is a 56-year-old male presents emergency room complaints of shortness of breath that began 2 weeks ago but has been worsening. He has associated chest pain, cough, ear pain, chills, fever, diarrhea. He denies any vomiting, leg swelling, sore throat. He states his girlfriend is sick at home with similar symptoms. He has not been vaccinated for COVID-19. He has not been tested for COVID-19 since becoming sick. Patient denies any past medical history. He denies any daily medications. He states he is a non-smoker. - Related Data Home Medications Medication Instructions Recorded Confirmed Last Taken Tizanidine HCl [Zanaflex] 0 mg PO PRN PRN 07/14/14 07/14/14 07/14/14 Previous Rx's Medication Instructions Recorded Last Taken Type HYDROcodone/APAP 5-325 [[place] 1 each PO Q6HR PRN #15 tablet 07/14/14 Unknown Rx 5/325] Naproxen [Naprosyn] 500 mg PO BID #30 tablet 07/14/14 Unknown Rx methOCARBAMOL [Robaxin] 500 mg PO Q6H #30 tablet 07/14/14 Unknown Rx methylPREDNISolone [Medrol Dose 4 mg PO DAILY 6 Days tab 07/14/14 Unknown Rx Les] Ciprofloxacin HCl [Cipro] 500 mg PO BID #20 tablet 05/16/17 Unknown Rx HYDROcodone/APAP 5-325 [[place] 1 each PO Q6HR PRN #15 tablet 05/16/17 Unknown Rx 5/325] Phenazopyridine [Pyridium] 100 mg PO TID #10 tab 05/16/17 Unknown Rx HYDROcodone/APAP 5-325 [[place] 1 each PO Q4HR PRN #15 tablet 08/03/20 Unknown Rx 5/325] Ibuprofen [Motrin 400 MG tab] 400 mg PO TID 5 Days #15 tablet 08/03/20 Unknown Rx Silver Sulfadiazine [Silvadene] 1 applic TP BID 14 Days #1 08/03/20 Unknown Rx cream..g. Cyclobenzaprine [Flexeril] 10 mg PO TID PRN #20 tablet 09/23/20 Unknown Rx Ibuprofen [Motrin 800 MG tab] 800 mg PO Q8HR PRN #15 tablet 09/23/20 Unknown Rx oxyCODONE /ACETAMINOPHEN [Percocet 1 tab PO Q6HR PRN #10 tablet 09/23/20 Unknown Rx 5/325] Allergies Allergy/AdvReac Type Severity Reaction Status Date / Time No Known Allergies Allergy Verified 05/16/17 02:50 ED Review of Systems ROS: Stated complaint: COUGHING/FEVER Other details as noted in HPI Comment: All other systems reviewed and negative ED Past Medical Hx - Past Medical History Previous Medical History?: Yes Additional medical history: back injury. kidney stones as teenager - Surgical History Past Surgical History?: Yes Hx Appendectomy: Yes - Social History Smoking Status: Never Smoker Substance Use Type: None - Medications Home Medications: Home Medications Medication Instructions Recorded Confirmed Last Taken Type HYDROcodone/APAP 5-325 [[place] 1 each PO Q6HR PRN #15 tablet 07/14/14 Unknown Rx 5/325] Naproxen [Naprosyn] 500 mg PO BID #30 tablet 07/14/14 Unknown Rx Tizanidine HCl [Zanaflex] 0 mg PO PRN PRN 07/14/14 07/14/14 07/14/14 History methOCARBAMOL [Robaxin] 500 mg PO Q6H #30 tablet 07/14/14 Unknown Rx methylPREDNISolone [Medrol Dose 4 mg PO DAILY 6 Days tab 07/14/14 Unknown Rx Les] Ciprofloxacin HCl [Cipro] 500 mg PO BID #20 tablet 05/16/17 Unknown Rx HYDROcodone/APAP 5-325 [[place] 1 each PO Q6HR PRN #15 tablet 05/16/17 Unknown Rx 5/325] Phenazopyridine [Pyridium] 100 mg PO TID #10 tab 05/16/17 Unknown Rx HYDROcodone/APAP 5-325 [[place] 1 each PO Q4HR PRN #15 tablet 08/03/20 Unknown Rx 5/325] Ibuprofen [Motrin 400 MG tab] 400 mg PO TID 5 Days #15 tablet 08/03/20 Unknown Rx Silver Sulfadiazine [Silvadene] 1 applic TP BID 14 Days #1 08/03/20 Unknown Rx cream..g. Cyclobenzaprine [Flexeril] 10 mg PO TID PRN #20 tablet 09/23/20 Unknown Rx Ibuprofen [Motrin 800 MG tab] 800 mg PO Q8HR PRN #15 tablet 09/23/20 Unknown Rx oxyCODONE /ACETAMINOPHEN [Percocet 1 tab PO Q6HR PRN #10 tablet 09/23/20 Unknown Rx 5/325] ED Physical Exam - General Limitations: No Limitations General appearance: alert, in no apparent distress - Head Head exam: Present: atraumatic, normocephalic - Eye Eye exam: Present: normal appearance - ENT ENT exam: Present: normal orophraynx, mucous membranes moist, other (right TM and canal are normal, left TM is erythematous and bulging there is a small perforation present and drainage present in the ear canal) - Respiratory Respiratory exam: Present: rhonchi, decreased breath sounds. Absent: respiratory distress, wheezes, rales, stridor, chest wall tenderness, accessory muscle use, prolonged expiratory - Cardiovascular Cardiovascular Exam: Present: regular rate, normal rhythm, normal heart sounds. Absent: systolic murmur, diastolic murmur, rubs, gallop - Neurological Exam Neurological exam: Present: alert, oriented X3 - Psychiatric Psychiatric exam: Present: normal affect, normal mood - Skin Skin exam: Present: warm, dry, intact ED Course Vital Signs 01/16/21 01/16/21 15:01 17:16 Temperature 99.8 F H Pulse Rate 82 Respiratory 20 15 Rate Blood Pressure 110/77 O2 Sat by Pulse 94 96 Oximetry - Reevaluation(s) Reevaluation #1: 01/16/21 16:[address] Snider, ER attending who recommended admission 01/16/21 16:55 I have attempted to call hospitalist twice with no answer - Consultations Consultation #1: 01/16/21 17:[address] Retana, hospitalist regarding patient presentation results, she will accept and resume care of patient, will admit to hospitalist service ED Medical Decision Making - Lab Data Result diagrams: 01/16/21 15:19 01/16/21 15:19 Lab Results 01/16/21 01/16/21 01/16/21 Range/Units 15:19 15:19 15:19 WBC 3.5 L (4.5-11.0) K/mm3 RBC 5.16 H (3.65-5.03) M/mm3 Hgb 16.8 H (11.8-15.2) gm/dl Hct 48.1 H (35.5-45.6) % MCV 93 (84-94) fl MCH 33 H (28-32) pg MCHC 35 H (32-34) % RDW 13.6 (13.2-15.2) % Plt Count 113 L (140-440) K/mm3 Lymph % (Auto) 8.5 L (13.4-35.0) % [place] % (Auto) 11.4 H (0.0-7.3) % Eos % (Auto) 0.0 (0.0-4.3) % Baso % (Auto) 0.4 (0.0-1.8) % Lymph # (Auto) 0.3 L (1.2-5.4) K/mm3 [place] # (Auto) 0.4 (0.0-0.8) K/mm3 Eos # (Auto) 0.0 (0.0-0.4) K/mm3 Baso # (Auto) 0.0 (0.0-0.1) K/mm3 Seg Neutrophils % 79.7 H (40.0-70.0) % Seg Neutrophils # 2.8 (1.8-7.7) K/mm3 D-Dimer 225.23 (0-234) ng/mlDDU Sodium 134 L (137-145) mmol/L Potassium 4.5 (3.6-5.0) mmol/L Chloride 95.8 L (98-107) mmol/L Carbon Dioxide 28 (22-30) mmol/L Anion Gap 15 mmol/L BUN 18 (9-20) mg/dL Creatinine 0.8 (0.8-1.3) mg/dL Estimated GFR > 60 ml/min BUN/Creatinine Ratio 23 % Glucose 110 H (75-100) mg/dL Calcium 8.5 (8.4-10.2) mg/dL Total Bilirubin 0.60 (0.1-1.2) mg/dL AST 60 H (5-40) units/L ALT 26 (7-56) units/L Alkaline Phosphatase 47 (35-129) units/L Troponin T < 0.010 (0.00-0.029) ng/mL NT-Pro-B Natriuret Pep 111.1 (0-900) pg/mL Total Protein 7.7 (6.3-8.2) g/dL Albumin 3.3 L (3.9-5) g/dL Albumin/Globulin Ratio 0.8 % - Radiology Data Radiology results: report reviewed Ordering Physician: NAY SOTO Date of Service: 01/16/21 Procedure(s): XR chest routine 2V Accession Number(s): [id number] cc: NAY SOTO Fluoro Time In Minutes: XR chest routine 2V INDICATION / CLINICAL INFORMATION: SOB, CP. COMPARISON: 07/01/2019 FINDINGS: SUPPORT DEVICES: None. HEART /PULMONARY VASCULATURE: No significant abnormality. LUNGS / PLEURA: Patchy bilateral airspace consolidation, most pronounced within the left mid and lower lung. No sizable pleural effusion. No pneumothorax. ADDITIONAL FINDINGS: No significant additional findings. IMPRESSION: Bilateral pulmonary airspace disease, most pronounced within the left mid to lower lung. Findings are most consistent with pneumonia. Signer Name: Jamal Hein MD Signed: 01/16/2021 3:47 PM Workstation Name: [id number] Transcribed By: FAISAL Dictated By: JAMAL HEIN MD Electronically Authenticated By: JAMAL HEIN MD Signed Date/Time: 01/16/21 154 DD/ 45 TD/TT: - Medical Decision Making Patient is a 56-year-old male presents emergency room complaints of shortness of breath that began 2 weeks ago but has been worsening. He has associated chest pain, cough, ear pain, chills, fever, diarrhea. He denies any vomiting, leg swelling, sore throat. He states his girlfriend is sick at home with similar symptoms. He has not been vaccinated for COVID-19. He has not been tested for COVID-19 since becoming sick. Patient denies any past medical history. He denies any daily medications. He states he is a non-smoker. Vitals with low- grade fever and mild hypoxia. Upon ambulating patient in the emergency room for 2 minutes his oxygen saturation drops to 90% on room air. Patient placed on 2 L nasal cannula with stable oxygen. On exam:right TM and canal are normal, left TM is erythematous and bulging there is a small perforation present and drainage present in the ear canal, rhonchi bilaterally and decreased breath sounds, no respiratory stress, no accessory muscle use, no rales, no wheezing. Chest x- ray: Bilateral pulmonary airspace disease, most pronounced within the left mid to lower lung. Findings are most consistent with pneumonia. Labs with leukopenia, mild dehydration, elevated AST. Patient given medications while in the emergency department. Discussed case with Dr. Snider, ER attending who recommended admission. Spoke to Dr. Retana, hospitalist regarding patient presentation results, she will accept and resume care of patient, will admit to hospitalist service. Discussed all results with patient and discussed admission, patient is agreeable with plan. Critical care attestation.: If time is entered above; I have spent that time in minutes in the direct care of this critically ill patient, excluding procedure time. ED Disposition Clinical Impression: Suspected COVID-19 virus infection, Hypoxia Bilateral pneumonia Qualifiers: Pneumonia type: due to unspecified organism Lung location: lower lobe of lung Qualified Code(s): J18.9 - Pneumonia, unspecified organism Otitis media Qualifiers: Otitis media type: suppurative Chronicity: acute Laterality: left Recurrence: non-recurrent Spontaneous tympanic membrane rupture: with spontaneous rupture Qualified Code(s): H66.012 - Acute suppurative otitis media with spontaneous rupture of ear drum, left ear Disposition: 02 [facility] Is pt being admited?: Yes Does the pt Need Aspirin: No Condition: Fair Instructions: Bacterial Pneumonia (ED) Referrals: PRIMARY CARE, [Primary Care Provider] - 3-5 Days Time of Disposition: 17:15 Print Language: MAORI
[2021-01-16] MEDS ORDERED: ONDANSETRON 4 MG/2 ML INJ IV PRN (19:39)
[2021-01-16] MEDS ORDERED: ACETAMINOPHEN 325 MG TAB PO PRN (19:39)
[2021-01-16] MEDS ORDERED: hydrALAZINE 20 MG/1 ML INJ IV PRN (19:39)
[2021-01-16] MEDS ORDERED: HYDROcodone/ACETAMINOPHEN 5-325 MG TAB PO PRN (19:39)
--- NOTE | 2021-01-16 19:39 | History and Physical Report ---
History of Present Illness Date of examination: 01/16/21 Date of admission: 01/16/21 Chief complaint: Short of breath and cough History of present illness: Patient is a 56-year-old male w/o any PMH presents emergency room complaints of worsening shortness of breath for 2 weeks. He also c/o associated pleuretic chest pain, cough, ear pain, chills, fever, diarrhea. He denies any vomiting, leg swelling, sore throat. He states his girlfriend is sick at home with s imilar symptoms. He has not been vaccinated for COVID-19. In the ER patient CXR showed b/l PNA and hypoxic in RA. He is being admitted for PNA with COVID PUI. - Past Medical History. kidney stones as teenager - Surgical History back injury, Hx Appendectomy - Social History Smoking Status: Never Smoker Substance Use Type: None -Family history: No history of heart disease cancer or diabetes Review of System: Constitutional: + fever, + chills, no weight loss Ears, eyes, nose, mouth and throat: no nasal congestion, no nasal discharge, no sinus pressure, no vision change, no red eye. Neck: No neck pain or rigidity. Cardiovascular: No chest pain, no orthopnea, no palpitations, no leg swelling Respiratory:+ shortness of breath, + cough, + congestion, no wheezing Gastrointestinal: no abdominal pain, no nausea, no vomiting Genitourinary : no dysuria, no hematuria Musculoskeletal: no joint swelling or muscle ache Integumentary: no rash, no pruritis Neurological: no parathesias, no numbness, no tingling Endocrine: no cold or heat intolerance, no polyuria or polydipsia Hematologic/Lymphatic: no easy bruising, no easy bleeding, no gland swelling Allergic/Immunologic: no urticaria, no angioedema. Medications and Allergies Allergies Allergy/AdvReac Type Severity Reaction Status Date / Time No Known Allergies Allergy Verified 05/16/17 02:50 Home Medications Medication Instructions Recorded Confirmed Last Taken Type HYDROcodone/APAP 5-325 [[place] 1 each PO Q6HR PRN #15 tablet 07/14/14 Unknown Rx 5/325] Naproxen [Naprosyn] 500 mg PO BID #30 tablet 07/14/14 Unknown Rx Tizanidine HCl [Zanaflex] 0 mg PO PRN PRN 03/02/1807/14/14 07/14/14 History methOCARBAMOL [Robaxin] 500 mg PO Q6H #30 tablet 07/14/14 Unknown Rx methylPREDNISolone [Medrol Dose 4 mg PO DAILY 6 Days tab 07/14/14 Unknown Rx Les] Ciprofloxacin HCl [Cipro] 500 mg PO BID #20 tablet 05/16/17 Unknown Rx HYDROcodone/APAP 5-325 [[place] 1 each PO Q6HR PRN #15 tablet 05/16/17 Unknown Rx 5/325] Phenazopyridine [Pyridium] 100 mg PO TID #10 tab 05/16/17 Unknown Rx HYDROcodone/APAP 5-325 [[place] 1 each PO Q4HR PRN #15 tablet 08/03/20 Unknown Rx 5/325] Ibuprofen [Motrin 400 MG tab] 400 mg PO TID 5 Days #15 tablet 08/03/20 Unknown Rx Silver Sulfadiazine [Silvadene] 1 applic TP BID 14 Days #1 08/03/20 01/16/21 09:00 Rx cream..g. Cyclobenzaprine [Flexeril] 10 mg PO TID PRN #20 tablet 09/23/20 01/15/21 21:00 Rx Ibuprofen [Motrin 800 MG tab] 800 mg PO Q8HR PRN #15 tablet 09/23/20 01/17/21 01/16/21 09:50 Rx oxyCODONE /ACETAMINOPHEN [Percocet 1 tab PO Q6HR PRN #10 tablet 09/23/20 Unknown Rx 5/325] Exam - Physical Exam Narrative exam: Limited physical exam due to COVID-19 pandemic to minimize transmission of the disease and to preserve PPE. Vital reviewed and stable. GENERAL: well-developed well-nourished lying on bed appeared to be in no discomfort. HEENT: Normocephalic. Atraumatic. NECK: Supple. CHEST/LUNGS: breathing on nasal cannula O2 HEART/CARDIOVASCULAR: Heart rate stable on telemetry ABDOMEN: Visibly not distended SKIN: There is no rash NEURO: No focal motor deficit. Follows command. MUSCULOSKELETAL: No joint effusion EXTRIMITY: No swelling, no cyanosis or clubbing. PSYCH: Cooperative. - Constitutional Vitals: Temp Pulse Resp BP Pulse Ox 99.8 F H 82 15 110/77 96 01/16/21 15:01 01/16/21 15:01 01/16/21 17:16 01/16/21 15:01 01/16/21 17:16 HEART Score - HEART Score Troponin: Troponin T < 0.010 ng/mL (0.00-0.029) 01/16/21 15:19 Results - Labs CBC & Chem 7: 01/16/21 15:19 01/17/21 08:57 Labs: Abnormal lab results 01/16/21 01/16/21 Range/Units 15:19 15:19 WBC 3.5 L (4.5-11.0) K/mm3 RBC 5.16 H (3.65-5.03) M/mm3 Hgb 16.8 H (11.8-15.2) gm/dl Hct 48.1 H (35.5-45.6) % MCH 33 H (28-32) pg MCHC 35 H (32-34) % Plt Count 113 L (140-440) K/mm3 Lymph % (Auto) 8.5 L (13.4-35.0) % [place] % (Auto) 11.4 H (0.0-7.3) % Lymph # (Auto) 0.3 L (1.2-5.4) K/mm3 Seg Neutrophils % 79.7 H (40.0-70.0) % Sodium 134 L (137-145) mmol/L Chloride 95.8 L (98-107) mmol/L Glucose 110 H (75-100) mg/dL AST 60 H (5-40) units/L Albumin 3.3 L (3.9-5) g/dL - Imaging and Cardiology Chest x-ray: report reviewed (Bilateral pulmonary airspace disease, more prominent on left than right) Assessment and Plan --COVID-19 PUI -Covid test has been ordered and pending -CXR shows patchy parenchymal disease which represent pulmonary edema or atypica l pneumonia -S/p dexamethasone, azithromycin and Rocephin in the ED -Continue empiric steroid for now -Order procalcitonin level, continue empiric antibiotics for now -Infectious disease consulted, -Droplet/contact isolation -Continue SPO2 monitoring -Supplemental oxygen as needed -Pulmonary hygiene -Prone to sleep -Vitamin C, vitamin D, zinc -Anticoagulation per protocol -Lasix IV as needed to prevent pulmonary edema --Acute hypoxic respiratory failure due to underlying PNA, cont abx, supplemental O2, albuterol prn, empiric steroid COVID 19 test pending --Left middle ear infection with TM perforation Continue empiric antibiotics for now --DVT prophylaxis, continue heparin
[2021-01-16] MEDS ORDERED: ALBUTEROL 2.5 MG/3 ML NEBU IH PRN (19:40)
[2021-01-16] MEDS ORDERED: CYCLOBENZAPRINE 10 MG TAB PO PRN (19:42)
[2021-01-16] MEDS: DEXAMETHASONE 2 MG TAB PO SCH (21:55)
[2021-01-16] MEDS: CHOLECALCIFEROL (VIT D3) 5,000 UNIT TAB PO SCH (21:55)
[2021-01-16] MEDS ORDERED: cefTRIAXone/NS 1 GM/50 ML 1 GM/50 ML BAG IV SCH (22:00)
[2021-01-16] MEDS: AZITHROMYCIN/NS 500 MG/250 ML 500 MG/250 ML BAG IV SCH (23:36)
[2021-01-16] MEDS: ASCORBIC ACID 500 MG TAB PO SCH (23:37)
[2021-01-16] MEDS: ZINC SULFATE 220 MG CAP PO SCH (23:37)
[2021-01-17] MEDS: FAMOTIDINE 10 MG TAB PO SCH ×3 (04:49→21:20)
[2021-01-17] MEDS: HEPARIN 5,000 UNIT/1 ML VIAL SUB-Q SCH ×4 (04:49→21:21)
--- NOTE | 2021-01-17 08:13 | Progress Note ---
Assessment and Plan Assessment and plan: Patient is a 56-year-old male presents emergency room complaints of shortness of breath that began 2 weeks ago but has been worsening. He has associated chest pain, cough, ear pain, chills, fever, diarrhea. He denies any vomiting, leg swelling, sore throat. He states his girlfriend is sick at home with similar symptoms. He has not been vaccinated for COVID-19. He has not been tested for COVID-19 since becoming sick. Patient denies any past medical history. He denies any daily medications. He states he is a non-smoker. - Past Medical History Previous Medical History?: Yes Additional medical history: back injury. kidney stones as teenager - Imaging and Cardiology Chest x-ray: report reviewed (Bilateral pulmonary airspace disease, more prominent on left than right) --COVID-19 PUI --Acte Hypoxic respiratory failure- pt on 5 liters of oxygen via NC -Covid test has been ordered and pending - Pulmonary Consult - ID consult IF Positive covid testing -CXR shows patchy parenchymal disease which represent pulmonary edema or atypical pneumonia -S/p dexamethasone, azithromycin and Rocephin in the ED -Continue empiric steroid for now -Order procalcitonin level, continue empiric antibiotics for now -Infectious disease consulted, appreciate recommendations -Droplet/contact isolation -Continue SPO2 monitoring -Supplemental oxygen as needed -Pulmonary hygiene -Prone to sleep -Vitamin C, vitamin D, zinc -Anticoagulation per protocol -Lasix IV as needed to prevent pulmonary edema --Left middle ear infection with TM perforation Continue empiric antibiotics for now -- Thrombocytopenia -Monitor --DVT prophylaxis, continue Lovenox Plan discussed in detail with the patient verbalized understanding History Interval history: Patient seen examined, appears lethargic, slow speech, on 3 liters of oxygen Hospitalist Physical - Physical exam Narrative exam: GENERAL: well-developed well-nourished lying on bed appeared to be in no disc omfort. But with exertion appears to be struggling. HEENT: Normocephalic. Atraumatic. NECK: Supple. CHEST/LUNGS: breathing on nasal cannula O2 HEART/CARDIOVASCULAR: Heart rate stable on telemetry ABDOMEN: Visibly not distended SKIN: There is no rash NEURO: No focal motor deficit. Follows command. MUSCULOSKELETAL: No joint effusion EXTRIMITY: No swelling, no cyanosis or clubbing. PSYCH: Cooperative. - Constitutional Vitals: Temp Pulse Resp BP Pulse Ox 97.8 F 54 L 19 106/73 99 01/17/21 05:14 01/17/21 06:12 01/17/21 06:12 01/17/21 06:12 01/17/21 06:12 HEART Score - HEART Score Troponin: Troponin T < 0.010 ng/mL (0.00-0.029) 01/16/21 15:19 Results - Labs CBC & Chem 7: 01/16/21 15:19 01/17/21 08:57 Labs: Laboratory Last Values WBC 3.5 K/mm3 (4.5-11.0) L 01/16/21 15:19 RBC 5.16 M/mm3 (3.65-5.03) H 01/16/21 15:19 Hgb 16.8 gm/dl (11.8-15.2) H 01/16/21 15:19 Hct 48.1 % (35.5-45.6) H 01/16/21 15:19 MCV 93 fl (84-94) 01/16/21 15:19 MCH 33 pg (28-32) H 01/16/21 15:19 MCHC 35 % (32-34) H 01/16/21 15:19 RDW 13.6 % (13.2-15.2) 01/16/21 15:19 Plt Count 113 K/mm3 (140-440) L 01/16/21 15:19 Lymph % (Auto) 8.5 % (13.4-35.0) L 01/16/21 15:19 [place] % (Auto) 11.4 % (0.0-7.3) H 01/16/21 15:19 Eos % (Auto) 0.0 % (0.0-4.3) 01/16/21 15:19 Baso % (Auto) 0.4 % (0.0-1.8) 01/16/21 15:19 Lymph # (Auto) 0.3 K/mm3 (1.2-5.4) L 01/16/21 15:19 [place] # (Auto) 0.4 K/mm3 (0.0-0.8) 01/16/21 15:19 Eos # (Auto) 0.0 K/mm3 (0.0-0.4) 01/16/21 15:19 Baso # (Auto) 0.0 K/mm3 (0.0-0.1) 01/16/21 15:19 Seg Neutrophils % 79.7 % (40.0-70.0) H 01/16/21 15:19 Seg Neutrophils # 2.8 K/mm3 (1.8-7.7) 01/16/21 15:19 D-Dimer 225.23 ng/mlDDU (0-234) 01/16/21 15:19 Sodium 134 mmol/L (137-145) L 01/16/21 15:19 Potassium 4.5 mmol/L (3.6-5.0) 01/16/21 15:19 Chloride 95.8 mmol/L (98-107) L 01/16/21 15:19 Carbon Dioxide 28 mmol/L (22-30) 01/16/21 15:19 Anion Gap 15 mmol/L 01/16/21 15:19 BUN 18 mg/dL (9-20) 01/16/21 15:19 Creatinine 0.8 mg/dL (0.8-1.3) 01/16/21 15:19 Estimated GFR > 60 ml/min 01/16/21 15:19 BUN/Creatinine Ratio 23 % 01/16/21 15:19 Glucose 110 mg/dL (75-100) H 01/16/21 15:19 Calcium 8.5 mg/dL (8.4-10.2) 01/16/21 15:19 Total Bilirubin 0.60 mg/dL (0.1-1.2) 01/16/21 15:19 AST 60 units/L (5-40) H 01/16/21 15:19 ALT 26 units/L (7-56) 01/16/21 15:19 Alkaline Phosphatase 47 units/L (35-129) 01/16/21 15:19 Troponin T < 0.010 ng/mL (0.00-0.029) 01/16/21 15:19 NT-Pro-B Natriuret Pep 111.1 pg/mL (0-900) 01/16/21 15:19 Total Protein 7.7 g/dL (6.3-8.2) 01/16/21 15:19 Albumin 3.3 g/dL (3.9-5) L 01/16/21 15:19 Albumin/Globulin Ratio 0.8 % 01/16/21 15:19 Ol[place]/IV: Voiding Method Urinal Active Medications - Current Medications Current Medications: Generic Name Dose Route Start Last Admin Trade Name Freq PRN Reason Stop Dose Admin Acetaminophen 650 mg 01/16/21 19:39 Acetaminophen 325 Mg Tab PO Q4H PRN Pain MILD(1-3)/Fever >100.5/MATUTE Hydrocodone Bitart/Acetaminophen 2 each 01/16/21 19:39 Hydrocodone/Acetaminophen 5-325 Mg Tab PO Q6H PRN Pain, Moderate (4-6) Albuterol 2.5 mg 01/16/21 19:40 Albuterol 2.5 Mg/3 Ml Nebu IH Q4HRT PRN Shortness Of Breath Ascorbic Acid 1,000 mg 01/16/21 22:00 01/16/21 23:37 Ascorbic Acid 500 Mg Tab PO 1,000 mg BID BUSHRA Administration Cholecalciferol 5,000 unit 01/17/21 10:00 01/16/21 21:55 Cholecalciferol (Vit D3) 5,000 Unit Tab PO 5,000 unit DAILY BUSHRA Administration Cyclobenzaprine HCl 10 mg 01/16/21 19:42 Cyclobenzaprine 10 Mg Tab PO TID PRN Muscle Spasm Dexamethasone 6 mg 01/17/21 10:00 01/16/21 21:55 Dexamethasone 2 Mg Tab PO 01/25/21 10:01 6 mg Q24HR BUSHRA Administration Famotidine 10 mg 01/16/21 22:00 01/17/21 04:49 Famotidine 10 Mg Tab PO Not Given BID BUSHRA Heparin Sodium (Porcine) 5,000 unit 01/16/21 22:00 01/17/21 06:05 Heparin 5,000 Unit/1 Ml Vial SUB-Q 5,000 unit Q8HR BUSHRA Administration Hydralazine HCl 5 mg 01/16/21 19:39 Hydralazine 20 Mg/1 Ml Inj IV Q30MIN PRN Hypertension Azithromycin 500 mg in 250 mls @ 250 mls/hr 01/16/21 20:00 01/16/21 23:36 Zithromax/Ns IV 01/20/21 20:59 250 mls/hr Q24H BUSHRA Administration Ceftriaxone Sodium 2 gm in 100 mls @ 200 mls/hr 01/17/21 20:00 Rocephin/Ns 2 Gm/100 Ml IV 01/20/21 20:29 Q24H BUSHRA Ondansetron HCl 4 mg 01/16/21 19:39 Ondansetron 4 Mg/2 Ml Inj IV Q8H PRN N/V unrelieved by Alessio Silver Sulfadiazine 1 applic 01/16/21 22:00 01/16/21 23:37 Silver Sulfadiazine Cream 50 Gm TP 1 applic BID BUSHRA Administration Zinc Sulfate 220 mg 01/16/21 22:00 01/16/21 23:37 Zinc Sulfate 220 Mg Cap PO 220 mg BID BUSHRA Administration
[2021-01-17 10:09] LABS: C-Reactive Protein 1.9 mg/dL (0.00-1.30)
[2021-01-17] MEDS: ZINC SULFATE 220 MG CAP PO SCH ×2 (10:22→21:21)
[2021-01-17] MEDS: ASCORBIC ACID 500 MG TAB PO SCH ×2 (10:22→21:21)
[2021-01-17] MEDS: CHOLECALCIFEROL (VIT D3) 5,000 UNIT TAB PO SCH (10:22)
[2021-01-17] MEDS: DEXAMETHASONE 2 MG TAB PO SCH (10:22)
--- NOTE | 2021-01-17 14:50 | Consultation ---
History of Present Illness Consult date: 01/17/21 Reason for consult: hypoxemia History of present illness: 56 y/o white male with acute respiratory failure, secondary to COVID pneumonia, unvaccinated. Medications and Allergies Allergies Allergy/AdvReac Type Severity Reaction Status Date / Time No Known Allergies Allergy Verified 05/16/17 02:50 Home Medications Medication Instructions Recorded Confirmed Last Taken Type HYDROcodone/APAP 5-325 [[place] 1 each PO Q6HR PRN #15 tablet 07/14/14 Unknown Rx 5/325] Naproxen [Naprosyn] 500 mg PO BID #30 tablet 07/14/14 Unknown Rx Tizanidine HCl [Zanaflex] 0 mg PO PRN PRN 07/14/14 07/14/14 07/14/14 History methOCARBAMOL [Robaxin] 500 mg PO Q6H #30 tablet 07/14/14 Unknown Rx methylPREDNISolone [Medrol Dose 4 mg PO DAILY 6 Days tab 07/14/14 Unknown Rx Les] Ciprofloxacin HCl [Cipro] 500 mg PO BID #20 tablet 05/16/17 Unknown Rx HYDROcodone/APAP 5-325 [[place] 1 each PO Q6HR PRN #15 tablet 05/16/17 Unknown Rx 5/325] Phenazopyridine [Pyridium] 100 mg PO TID #10 tab 05/16/17 Unknown Rx HYDROcodone/APAP 5-325 [[place] 1 each PO Q4HR PRN #15 tablet 08/03/20 Unknown Rx 5/325] Ibuprofen [Motrin 400 MG tab] 400 mg PO TID 5 Days #15 tablet 08/03/20 Unknown Rx Silver Sulfadiazine [Silvadene] 1 applic TP BID 14 Days #1 08/03/20 01/16/21 09:00 Rx cream..g. Cyclobenzaprine [Flexeril] 10 mg PO TID PRN #20 tablet 09/23/20 01/15/21 21:00 Rx Ibuprofen [Motrin 800 MG tab] 800 mg PO Q8HR PRN #15 tablet 09/23/20 01/17/21 01/16/21 09:50 Rx oxyCODONE /ACETAMINOPHEN [Percocet 1 tab PO Q6HR PRN #10 tablet 09/23/20 Unknown Rx 5/325] Active Meds: Active Medications Acetaminophen (Acetaminophen 325 Mg Tab) 650 mg PO Q4H PRN PRN Reason: Pain MILD(1-3)/Fever >100.5/MATUTE Hydrocodone Bitart/Acetaminophen (Hydrocodone/Acetaminophen 5-325 Mg Tab) 2 each PO Q6H PRN PRN Reason: Pain, Moderate (4-6) Albuterol (Albuterol 2.5 Mg/3 Ml Nebu) 2.5 mg IH Q4HRT PRN PRN Reason: Shortness Of Breath Ascorbic Acid (Ascorbic Acid 500 Mg Tab) 1,000 mg PO BID [facility] Last Admin: 01/17/21 10:22 Dose: 1,000 mg Documented by: Cholecalciferol (Cholecalciferol (Vit D3) 5,000 Unit Tab) 5,000 unit PO DAILY [facility] Last Admin: 01/17/21 10:22 Dose: 5,000 unit Documented by: Cyclobenzaprine HCl (Cyclobenzaprine 10 Mg Tab) 10 mg PO TID PRN PRN Reason: Muscle Spasm Dexamethasone (Dexamethasone 2 Mg Tab) 6 mg PO Q24HR [facility] Stop: 01/25/21 10:01 Last Admin: 01/17/21 10:22 Dose: 6 mg Documented by: Famotidine (Famotidine 10 Mg Tab) 10 mg PO BID [facility] Last Admin: 01/17/21 10:22 Dose: 10 mg Documented by: Heparin Sodium (Porcine) (Heparin 5,000 Unit/1 Ml Vial) 5,000 unit SUB-Q Q8HR [facility] Last Admin: 01/17/21 06:05 Dose: 5,000 unit Documented by: Hydralazine HCl (Hydralazine 20 Mg/1 Ml Inj) 5 mg IV Q30MIN PRN PRN Reason: Hypertension Azithromycin (Zithromax/Ns) 500 mg in 250 mls @ 250 mls/hr IV Q24H [facility] Stop: 01/20/21 20:59 Last Admin: 01/16/21 23:36 Dose: 250 mls/hr Documented by: Ceftriaxone Sodium (Rocephin/Ns 2 Gm/100 Ml) 2 gm in 100 mls @ 200 mls/hr IV Q2 4H [facility] Stop: 01/20/21 20:29 Ondansetron HCl (Ondansetron 4 Mg/2 Ml Inj) 4 mg IV Q8H PRN PRN Reason: N/V unrelieved by Alessio Silver Sulfadiazine (Silver Sulfadiazine Cream 50 Gm) 1 applic TP BID [facility] Last Admin: 01/17/21 10:22 Dose: Not Given Documented by: Zinc Sulfate (Zinc Sulfate 220 Mg Cap) 220 mg PO BID [facility] Last Admin: 01/17/21 10:22 Dose: 220 mg Documented by: Physical Examination Vital signs: Vital Signs Temp Pulse Resp BP Pulse Ox 99.8 F H 82 20 110/77 94 01/16/21 15:01 01/16/21 15:01 01/16/21 15:01 01/16/21 15:01 01/16/21 15:01 Results - Laboratory Findings CBC and BMP: 01/16/21 15:19 01/17/21 08:57 PT/INR, D-dimer D-Dimer 231.43 ng/mlDDU (0-234) 01/17/21 08:57 Abnormal lab findings: Abnormal Labs 01/16/21 01/16/21 01/16/21 15:19 15:19 Unknown WBC 3.5 L RBC 5.16 H Hgb 16.8 H Hct 48.1 H MCH 33 H MCHC 35 H Plt Count 113 L Lymph % (Auto) 8.5 L [place] % (Auto) 11.4 H Lymph # (Auto) 0.3 L Seg Neutrophils % 79.7 H Sodium 134 L Chloride 95.8 L Glucose 110 H Ferritin AST 60 H Lactate Dehydrogenase C-Reactive Protein Albumin 3.3 L Coronavirus (PCR) Positive A 01/17/21 01/17/21 08:57 08:57 WBC RBC Hgb Hct MCH MCHC Plt Count Lymph % (Auto) [place] % (Auto) Lymph # (Auto) Seg Neutrophils % Sodium Chloride Glucose 191 H Ferritin 1145.0 H AST Lactate Dehydrogenase 352 H C-Reactive Protein 1.90 H Albumin Coronavirus (PCR) - Diagnostic Findings Chest x-ray: image reviewed Assessment and Plan 56 y/o male, COVID positive with acute respiratory failure secondary to COVID pneumonia. 1. Agree with steroids 2. Follow up ID recs but should be a candidate for Remdesivir 3. Needs to prone as long as tolerated 4. Guarded prognosis.
--- NOTE | 2021-01-17 16:50 | Consultation ---
History of Present Illness - Reason for Consult Consult date: 01/17/21 COVID - History of Present Illness 56-year-old male without any medical history, admitted on 01/16/2021 secondary to 2-week history of cough, ear pain, chills, fever, diarrhea, progressive shortness of breath. His girlfriend is sick at home with similar symptoms. Patient did not get COVID-19 vaccine. On arrival, temperature 98.8, HR 82, RR 20, BP 110/77. O2 sat dropped to 90% upon ambulation. Initial WBC 3.5. Platel ets 113. D-dimer 25. AST 60. CRP 1.9. Ferritin 1145. Chest x-ray with bilateral airspace disease. Patient currently is on 40%, 5 L. Review of Systems: reviewed ED and H&P notes. Review of system deferred to minimize COVID-19 transmission. Medications and Allergies Allergies Allergy/AdvReac Type Severity Reaction Status Date / Time No Known Allergies Allergy Verified 05/16/17 02:50 Home Medications Medication Instructions Recorded Confirmed Last Taken Type HYDROcodone/APAP 5-325 [[place] 1 each PO Q6HR PRN #15 tablet 07/14/14 Unknown Rx 5/325] Naproxen [Naprosyn] 500 mg PO BID #30 tablet 07/14/14 Unknown Rx Tizanidine HCl [Zanaflex] 0 mg PO PRN PRN 07/14/14 07/14/14 07/14/14 History methOCARBAMOL [Robaxin] 500 mg PO Q6H #30 tablet 07/14/14 Unknown Rx methylPREDNISolone [Medrol Dose 4 mg PO DAILY 6 Days tab 07/14/14 Unknown Rx Les] Ciprofloxacin HCl [Cipro] 500 mg PO BID #20 tablet 05/16/17 Unknown Rx HYDROcodone/APAP 5-325 [[place] 1 each PO Q6HR PRN #15 tablet 05/16/17 Unknown Rx 5/325] Phenazopyridine [Pyridium] 100 mg PO TID #10 tab 05/16/17 Unknown Rx HYDROcodone/APAP 5-325 [[place] 1 each PO Q4HR PRN #15 tablet 08/03/20 Unknown Rx 5/325] Ibuprofen [Motrin 400 MG tab] 400 mg PO TID 5 Days #15 tablet 08/03/20 Unknown Rx Silver Sulfadiazine [Silvadene] 1 applic TP BID 14 Days #1 08/03/20 01/16/21 09:00 Rx cream..g. Cyclobenzaprine [Flexeril] 10 mg PO TID PRN #20 tablet 09/23/20 01/15/21 21:00 Rx Ibuprofen [Motrin 800 MG tab] 800 mg PO Q8HR PRN #15 tablet 09/23/20 01/17/21 01/16/21 09:50 Rx oxyCODONE /ACETAMINOPHEN [Percocet 1 tab PO Q6HR PRN #10 tablet 09/23/20 Unknown Rx 5/325] Active Meds: Active Medications Acetaminophen (Acetaminophen 325 Mg Tab) 650 mg PO Q4H PRN PRN Reason: Pain MILD(1-3)/Fever >100.5/MATUTE Hydrocodone Bitart/Acetaminophen (Hydrocodone/Acetaminophen 5-325 Mg Tab) 2 each PO Q6H PRN PRN Reason: Pain, Moderate (4-6) Albuterol (Albuterol 2.5 Mg/3 Ml Nebu) 2.5 mg IH Q4HRT PRN PRN Reason: Shortness Of Breath Ascorbic Acid (Ascorbic Acid 500 Mg Tab) 1,000 mg PO BID [facility] Last Admin: 01/17/21 10:22 Dose: 1,000 mg Documented by: Cholecalciferol (Cholecalciferol (Vit D3) 5,000 Unit Tab) 5,000 unit PO DAILY [facility] Last Admin: 01/17/21 10:22 Dose: 5,000 unit Documented by: Cyclobenzaprine HCl (Cyclobenzaprine 10 Mg Tab) 10 mg PO TID PRN PRN Reason: Muscle Spasm Dexamethasone (Dexamethasone 2 Mg Tab) 6 mg PO Q24HR [facility] Stop: 01/25/21 10:01 Last Admin: 01/17/21 10:22 Dose: 6 mg Documented by: Famotidine (Famotidine 10 Mg Tab) 10 mg PO BID [facility] Last Admin: 01/17/21 10:22 Dose: 10 mg Documented by: Heparin Sodium (Porcine) (Heparin 5,000 Unit/1 Ml Vial) 5,000 unit SUB-Q Q8HR [facility] Last Admin: 01/17/21 15:19 Dose: 5,000 unit Documented by: Hydralazine HCl (Hydralazine 20 Mg/1 Ml Inj) 5 mg IV Q30MIN PRN PRN Reason: Hypertension Azithromycin (Zithromax/Ns) 500 mg in 250 mls @ 250 mls/hr IV Q24H [facility] Stop: 01/20/21 20:59 Last Admin: 01/16/21 23:36 Dose: 250 mls/hr Documented by: Ceftriaxone Sodium (Rocephin/Ns 2 Gm/100 Ml) 2 gm in 100 mls @ 200 mls/hr IV Q24H [facility] Stop: 01/20/21 20:29 Ondansetron HCl (Ondansetron 4 Mg/2 Ml Inj) 4 mg IV Q8H PRN PRN Reason: N/V unrelieved by Regleann Silver Sulfadiazine (Silver Sulfadiazine Cream 50 Gm) 1 applic TP BID [facility] Last Admin: 01/17/21 10:22 Dose: Not Given Documented by: Zinc Sulfate (Zinc Sulfate 220 Mg Cap) 220 mg PO BID [facility] Last Admin: 01/17/21 10:22 Dose: 220 mg Documented by: Physical Examination - Physical Exam Narrative exam: Physical exam deferred to minimize COVID-19 transmission during pandemic. - Constitutional Vitals: Vital Signs Temp Pulse Resp BP Pulse Ox 98.1 F 56 L 18 103/68 98 01/17/21 14:24 01/17/21 14:24 01/17/21 14:24 01/17/21 14:24 01/17/21 14:24 Temperature -Last 24 Hours Temperature 98.1 F Temperature 97.8 F Temperature 99.5 F Results - Labs CBC & Chem 7: 01/16/21 15:19 01/17/21 08:57 Labs: Abnormal lab results 01/16/21 01/17/21 01/17/21 Range/Units Unknown 08:57 08:57 Glucose 191 H (75-100) mg/dL Ferritin 1145.0 H (30.0-300.0) ng/mL Lactate Dehydrogenase 352 H (91-180) units/L C-Reactive Protein 1.90 H (0.00-1.30) mg/dL Coronavirus (PCR) Positive A (Negative) Assessment and Plan Cultures: None Assessment: 56-year-old male with history of kidney stones, admitted on 01/16/2021 secondary to 2-week history of cough, ear pain, chills, fever, diarrhea, progressive shortness of breath: #Severe COVID pneumonia: CXR with bilateral pneumonia. Infllammatory markers mildly elevated. CRP 1.9. D-dimer 225. Ferritin 1145. #Acute hypoxemic respiratory failure: Sats dropped to 90% upon ambulation. Currently on HFNC 40%, 5 L. #Elevated LFTs: from COVID #Neutropenia/thrombocytopenia: Likely secondary to COVID-19 Recommendations: -Obtain SARS-CoV-2 PCR -Continue steroids IV/PO daily for 10 days -No indication for remdesivir as symptoms started > 2 weeks ago -No indication for Tocilizumab as CRP <7.5 -Monitor inflammatory markers - ferritin, Ddimer, CRP, LDH -Monitor liver function test on Remdesivir -Continue anticoagulation per System Protocol -Prone positioning as possible -Obtain procalcitonin, please stop ceftriaxone and azithromycin if stop ceftriaxone and azithromycin, procalcitonin <0.25 ng/mL All laboratory, cultures and imaging were reviewed. Will follow Bridget Voss MD Infectious Diseases Security System Technician [facility] ([facility]) M [phone] O [phone]
[2021-01-17] MEDS ORDERED: cefTRIAXone/NS 2 GM/100 ML 2 GM/100 ML BAG IV SCH (20:00)
[2021-01-17] MEDS: AZITHROMYCIN/NS 500 MG/250 ML 500 MG/250 ML BAG IV SCH (21:20)
[2021-01-18] MEDS: HEPARIN 5,000 UNIT/1 ML VIAL SUB-Q SCH ×2 (06:19→14:00)
[2021-01-18 06:31] LABS: Hematocrit 41.8 % (35.5-45.6); Hemoglobin 14.6 gm/dl (11.8-15.2); Mean Corpuscular HGB Conc 35 % (32-34); Mean Corpuscular Volume 94 fl (84-94); Platelet Count 121 K/mm3 (140-440); Red Blood Count 4.46 M/mm3 (3.65-5.03); Red Cell Distribution Width 13.4 % (13.2-15.2)
[2021-01-18 06:51] LABS: Alanine Aminotransferase 21 units/L (7-56); Albumin 2.8 g/dL (3.9-5); Blood Urea Nitrogen 19 mg/dL (9-20); Calcium 8.6 mg/dL (8.4-10.2); Hemolysis Index 6
[2021-01-18 06:58] LABS: BUN/Creatinine Ratio 32
--- NOTE | 2021-01-18 09:09 | Electrocardiograph Report ---
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
--- NOTE | 2021-01-18 09:25 | Progress Note ---
Assessment and Plan Cultures: SARS-CoV-2 PCR positive Assessment: 56-year-old male with history of kidney stones, admitted on 01/16/2021 secondary to 2-week history of cough, ear pain, chills, fever, diarrhea, progressive shortness of breath: #Severe COVID pneumonia: CXR with bilateral pneumonia. Infllammatory markers mildly elevated. CRP 1.9. D-dimer 225. Ferritin 1145. #Acute hypoxemic respiratory failure: Sats dropped to 90% upon ambulation. Now on 2 L. #Elevated LFTs: from COVID #Neutropenia/thrombocytopenia: Likely secondary to COVID-19 Recommendations: -Evaluation for home O2 -Continue steroids IV/PO daily for 10 days -No indication for remdesivir as symptoms started > 2 weeks ago -No indication for Tocilizumab as CRP <7.5 -Monitor inflammatory markers - ferritin, Ddimer, CRP, LDH -Monitor liver function test on Remdesivir -Continue anticoagulation per System Protocol -Prone positioning as possible -Okay to stop ceftriaxone/Zithromax, procalcitonin is low All laboratory, cultures and imaging were reviewed. Will follow Bridget Voss MD Infectious Diseases Learning Operations Specialist [facility] ([facility]) M [phone] O [phone] Subjective Date of service: 01/18/21 Principal diagnosis: COVID Interval history: Patient is now on 2 L. No desaturations overnight. No fever. Objective - Exam Narrative Exam: Physical exam deferred to minimize COVID-19 transmission during pandemic. - Constitutional Vitals: Vital Signs Temp Pulse Resp BP Pulse Ox 98.1 F 54 L 20 93/65 95 01/18/21 05:09 01/18/21 05:09 01/18/21 05:09 01/18/21 05:09 01/18/21 05:09 Temperature -Last 24 Hours Temperature 98.1 F Temperature 98.8 F Temperature 98.6 F Temperature 98.1 F - Labs CBC & Chem 7: 01/18/21 05:17 01/18/21 05:17 Labs: Abnormal lab results 01/16/21 01/17/21 01/17/21 Range/Units Unknown 08:57 08:57 MCH (28-32) pg MCHC (32-34) % Plt Count (140-440) K/mm3 Creatinine (0.8-1.3) mg/dL Glucose 191 H (75-100) mg/dL Ferritin 1145.0 H (30.0-300.0) ng/mL Lactate Dehydrogenase 352 H (91-180) units/L C-Reactive Protein 1.90 H (0.00-1.30) mg/dL Albumin (3.9-5) g/dL Coronavirus (PCR) Positive A (Negative) 01/18/21 01/18/21 Range/Units 05:17 05:17 MCH 33 H (28-32) pg MCHC 35 H (32-34) % Plt Count 121 L (140-440) K/mm3 Creatinine 0.6 L (0.8-1.3) mg/dL Glucose 144 H (75-100) mg/dL Ferritin (30.0-300.0) ng/mL Lactate Dehydrogenase (91-180) units/L C-Reactive Protein (0.00-1.30) mg/dL Albumin 2.8 L (3.9-5) g/dL Coronavirus (PCR) (Negative)
--- NOTE | 2021-01-18 10:18 | Progress Note ---
Assessment and Plan 56 y/o male, COVID positive with acute respiratory failure secondary to COVID pneumonia. 01/18/21: Steroids should continue. Not a candidate for Remdesivir. Prone. Guarded prognosis 1. Agree with steroids 2. Follow up ID recs but should be a candidate for Remdesivir 3. Needs to prone as long as tolerated 4. Guarded prognosis. Subjective Date of service: 01/18/21 Principal diagnosis: COVID Interval history: Stable on 2 liters, reviewed ID note. Objective Vital Signs - 12hr 01/17/21 01/18/21 01/18/21 23:19 00:16 05:09 Temperature 98.8 F 98.1 F Pulse Rate 63 54 L Respiratory 20 20 Rate Blood Pressure 98/63 93/65 O2 Sat by Pulse 94 98 95 Oximetry CBC and BMP: 01/18/21 05:17 01/18/21 05:17 ABG, PT/INR, D-dimer: PT/INR, D-dimer D-Dimer 231.43 ng/mlDDU (0-234) 01/17/21 08:57 Abnormal lab findings: Abnormal Labs 01/16/21 01/16/21 01/16/21 15:19 15:19 Unknown WBC 3.5 L RBC 5.16 H Hgb 16.8 H Hct 48.1 H MCH 33 H MCHC 35 H Plt Count 113 L Lymph % (Auto) 8.5 L [place] % (Auto) 11.4 H Lymph # (Auto) 0.3 L Seg Neutrophils % 79.7 H Sodium 134 L Chloride 95.8 L Creatinine Glucose 110 H Ferritin AST 60 H Lactate Dehydrogenase C-Reactive Protein Albumin 3.3 L Coronavirus (PCR) Positive A 01/17/21 01/17/21 01/18/21 08:57 08:57 05:17 WBC RBC Hgb Hct MCH 33 H MCHC 35 H Plt Count 121 L Lymph % (Auto) [place] % (Auto) Lymph # (Auto) Seg Neutrophils % Sodium Chloride Creatinine Glucose 191 H Ferritin 1145.0 H AST Lactate Dehydrogenase 352 H C-Reactive Protein 1.90 H Albumin Coronavirus (PCR) 01/18/21 05:17 WBC RBC Hgb Hct MCH MCHC Plt Count Lymph % (Auto) [place] % (Auto) Lymph # (Auto) Seg Neutrophils % Sodium Chloride Creatinine 0.6 L Glucose 144 H Ferritin AST Lactate Dehydrogenase C-Reactive Protein Albumin 2.8 L Coronavirus (PCR)
--- NOTE | 2021-01-18 11:23 | Discharge Summary ---
Providers - Providers Date of Admission: 01/17/21 12:39 Attending physician: STEPHEN ALBA MD 01/17/21 08:10 Consult to Physician [CONS] Routine Comment: Consulting Provider: MENDY PENDLETON Physician Instructions: Reason For Exam: hypoxic respiratory failure 01/17/21 10:20 Consult to Physician [CONS] Routine Comment: Consulting Provider: MIKE TOLENTINO Physician Instructions: Reason For Exam: COVID PUI Primary care physician: ASSISTANT SPA MANAGER Hospitalization Reason for admission: Shortness of breath Condition: Stable Hospital course: Patient is a 56-year-old male presents emergency room complaints of shortness of breath that began 2 weeks ago but has been worsening. He has associated chest pain, cough, ear pain, chills, fever, diarrhea. He denies any vomiting, leg swelling, sore throat. He states his girlfriend is sick at home with similar symptoms. He has not been vaccinated for COVID-19. He has not been tested for COVID-19 since becoming sick. Patient denies any past medical history. He denies any daily medications. He states he is a non-smoker. - Past Medical History Previous Medical History?: Yes Additional medical history: back injury. kidney stones as teenager - Imaging and Cardiology Chest x-ray: report reviewed (Bilateral pulmonary airspace disease, more prominent on left than right) --COVID-19 --Acte Hypoxic respiratory failure- pt on 5 liters of oxygen via NC -Covid test has been ordered and pending - Pulmonary Consult - ID consult IF Positive covid testing -CXR shows patchy parenchymal disease which represent pulmonary edema or atypical pneumonia -S/p dexamethasone, azithromycin and Rocephin in the ED -Continue empiric steroid for now -Order procalcitonin level, continue empiric antibiotics for now -Infectious disease consulted, appreciate recommendations -Droplet/contact isolation -Continue SPO2 monitoring -Supplemental oxygen as needed -Pulmonary hygiene -Prone to sleep -Vitamin C, vitamin D, zinc -Anticoagulation per protocol -Lasix IV as needed to prevent pulmonary edema --Left middle ear infection with TM perforation Continue empiric antibiotics for now -- Thrombocytopenia -Monitor Plan discussed in detail with the patient verbalized understanding 01/18: Patient this morning is down to 2 L of oxygen saturating 92 to 94%. We'll do a home O2 evaluation prior to discharge he is otherwise feeling well I advised him to continue wearing his mask to discuss with his primary care doctor about timing for Covid vaccine. And to ensure social distancing for family members. He completed empiric antibiotics and will follow up with an ENT doctor outpatient for middle ear infection with TM perforation. Disposition: 01 HOME / SELF CARE / HOMELESS Final Discharge Diagnosis (Prints w/discharge instructions): Acute hypoxic respiratory failure secondary to Covid pneumonia Time spent for discharge: 35 MINS Core Measure Documentation - Palliative Care Palliative Care/ Comfort Measures: Not Applicable - Core Measures Any of the following diagnoses?: none Exam - Physical Exam Narrative exam: GENERAL: well-developed well-nourished, lying on bed appeared to be in no discomfort. But with exertion appears to be struggling. HEENT: Normocephalic. Atraumatic. NECK: Supple. CHEST/LUNGS: breathing on nasal cannula O2 HEART/CARDIOVASCULAR: Heart rate stable on telemetry ABDOMEN: Visibly not distended SKIN: There is no rash NEURO: No focal motor deficit. Follows command. MUSCULOSKELETAL: No joint effusion EXTRIMITY: No swelling, no cyanosis or clubbing. PSYCH: Cooperative. - Constitutional Vitals: Temp Pulse Resp BP Pulse Ox 98.1 F 54 L 20 93/65 95 01/18/21 05:09 01/18/21 05:09 01/18/21 05:09 01/18/21 05:09 01/18/21 05:09 Plan Activity: advance as tolerated, fall precautions Diet: low fat Special Instructions: record daily weights, record daily BP diary Plan of Treatment: Follow-up with ear nose and throat physician per primary physician's preference. Follow up with: PRIMARY CAREMD [Primary Care Provider] - 3-5 Days Prescriptions: dexAMETHasone [Dexamethasone] 6 mg PO DAILY #9 tablet Famotidine [Pepcid] 10 mg PO BID #30 tablet Ascorbic Acid [Vitamin C] 1,000 mg PO BID #60 tablet Cholecalciferol (Vitamin D3) [Vitamin D3] 5,000 unit PO DAILY #30 tablet Zinc Sulfate 220 mg PO BID #60 capsule
[2021-01-18] MEDS: DEXAMETHASONE 2 MG TAB PO SCH (11:34)
[2021-01-18] MEDS: CHOLECALCIFEROL (VIT D3) 5,000 UNIT TAB PO SCH (11:34)
[2021-01-18] MEDS: ASCORBIC ACID 500 MG TAB PO SCH (11:35)
[2021-01-18] MEDS: ZINC SULFATE 220 MG CAP PO SCH (11:35)
[2021-01-18] MEDS: FAMOTIDINE 10 MG TAB PO SCH (11:35)
[2021-01-18 13:45] VITALS: BP 98/70
== END 2021-01-18 19:15 | disposition left against medical advice (07) | DRG 177 ==
LOC: ED 14:29 → 3A 01-17 00:18 → OBSVTOIN 01-17 12:39 → 3A 01-17 23:38
PROVIDERS: ADMIT Internal Medicine; ATTEND Internal Medicine
DX: U07.1 COVID-19 (principal); J96.01 Acute respiratory failure with hypoxia; J12.82 Pneumonia due to coronavirus disease 2019; Z90.49 Acquired absence of other specified parts of digestive tract; H66.92 Otitis media, unspecified, left ear; D69.6 Thrombocytopenia, unspecified; Z53.29 Procedure and treatment not carried out because of patient's decision for other reasons
CPT/HCPCS: 36415; 71046; 80053; 82728; 82947; 83615; 83880; 84145; 84484; 85025; 85027; 85379; 86140; 93005; 94640; 94760; 96365; 96375; G0378; J0456; J0696; J1100; J1644; J7030; J8540; U0003

== ENCOUNTER 2021-01-21 06:35 | Inpatient (IN) | payer SELFPAY ==
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
[2021-01-21] MEDS ORDERED: SODIUM CHLORIDE 0.9% 1000 ML 1,000 ML IV ONE (07:05)
[2021-01-21 07:55] LABS: Basophils # (Auto) 0.1 K/mm3 (0.0-0.1); Basophils % (Auto) 1.2 % (0.0-1.8); Eosinophils % (Auto) 0.1 % (0.0-4.3); Hematocrit 47.4 % (35.5-45.6); Hemoglobin 16.8 gm/dl (11.8-15.2); Lymphocytes # (Auto) 0.5 K/mm3 (1.2-5.4); Lymphocytes % (Auto) 5.7 % (13.4-35.0); Mean Corpuscular HGB Conc 35 % (32-34); Mean Corpuscular Volume 93 fl (84-94); Monocytes # (Auto) 0.3 K/mm3 (0.0-0.8); Monocytes % (Auto) 3.5 % (0.0-7.3); Platelet Count 192 K/mm3 (140-440); Red Blood Count 5.11 M/mm3 (3.65-5.03); Red Cell Distribution Width 13.3 % (13.2-15.2)
[2021-01-21 08:19] LABS: Alanine Aminotransferase 21 units/L (7-56); Albumin 2.6 g/dL (3.9-5); Blood Urea Nitrogen 15 mg/dL (9-20); Calcium 8.7 mg/dL (8.4-10.2); Hemolysis Index 7
--- NOTE | 2021-01-21 08:22 | XRay Report ---
CHEST 1 VIEW 01/21/2021 7:53 AM INDICATION / CLINICAL INFORMATION: hypoxia, covid +. COMPARISON: 01/16/2021 FINDINGS: SUPPORT DEVICES: None. HEART / MEDIASTINUM: No significant abnormality. LUNGS / PLEURA: Increased right basilar opacification with improved appearance of left lung. No pneum othorax. ADDITIONAL FINDINGS: No significant additional findings. IMPRESSION: 1. Improved appearance of the left lung with redemonstrated right lung pneumonia Signer Name: Norman Luis DO Signed: 01/21/2021 8:18 AM Workstation Name: [id number]
[2021-01-21 08:32] LABS: BUN/Creatinine Ratio 21
[2021-01-21] MEDS ORDERED: dexAMETHasone 4 MG/ML VIAL IV ONE (08:50)
[2021-01-21] MEDS ORDERED: SODIUM CHLORIDE 0.9% 1000 ML IV SOLN IV ONE (09:13)
--- NOTE | 2021-01-21 10:58 | Cat Scan Report ---
CTA CHEST WITH CONTRAST INDICATION / CLINICAL INFORMATION: sob, worsening hypoxia, recent covid OMNI 350 100 ML. TECHNIQUE: Axial CT images were obtained through the chest after injection of 100 cc of Omnipaque 350 IV contrast. 3 plane MIP and/or 3D reconstructions were produced. All CT scans at this location are performed using CT dose reduction for ALARA by means of automated exposure control. COMPARISON: Radiograph from 01/21/2021. FINDINGS: PULMONARY ARTERIES: No central or segmental pulmonary embolus. THORACIC AORTA: No significant abnormality. HEART: No significant abnormality. ADENOPATHY: No significant adenopathy. LUNGS/PLEURA: There are diffuse groundglass opacities with interlobular septal thickening, which coul d reflect a component of pulmonary edema related to volume overload/CHF. Bibasilar airspace consolida tions are present.. No pleural effusion. No pneumothorax. ADDITIONAL FINDINGS: None. UPPER ABDOMEN: No acute findings. SKELETAL STRUCTURES: No significant osseous abnormality. IMPRESSION: 1. No evidence of pulmonary embolus. 2. Diffuse interstitial and airspace opacities, compatible with reported history of COVID. Component of pulmonary edema related to volume overload/CHF may also be present. Signer Name: Jose Hein MD Signed: 01/21/2021 10:53 AM Workstation Name: [id number]
[2021-01-21] MEDS ORDERED: POTASSIUM CHLORIDE ER 20 MEQ TAB PO ONE (11:05)
--- NOTE | 2021-01-21 18:56 | Event Note ---
Date: 01/21/21 Patient seen and evaluated. Home oxygen evaluation results. Patient pulse oximetry on 3 L nasal cannula with ambulation and 95%. Patient medically optimized and cleared for discharge with home oxygen 3 L continuous. Patient seen and evaluated prior to discharge but with no significant physical exam findings. Patient struck to follow-up with primary care physician within 3 to 5 days for further care and evaluation.
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
--- NOTE | 2021-01-22 12:22 | Event Note ---
Patient noted to be tachycardic on the monitor with a regular rhythm. EKG performed and shows atrial fibrillation rate 118. Patient placed on nonrebreather with improvement in oxygenation. Hospitalist informed
--- NOTE | 2021-01-22 14:34 | History and Physical Report ---
History of Present Illness Chief complaint: I cannot breathe History of present illness: 56 YO Male with coronavirus infection, Medication Noncompliance presents to ED for evaluation. Pt discharged from [facility] 4 days ago s/p inpatient care. Patient states that he has experienced shortness of breath, fatigue, malaise, ge neralized weakness over the past 2 weeks with persistent symptoms since his departure from the hospital 4 days ago. EMS was notified and upon arrival the patient was found to be in distress and subsequent transported to [facility] for further care and evaluation of the aforementioned symptoms. The patient was seen and evaluated in the emergency department. All lab and imaging studies reviewed. Patient found to have a pulse oximetry of 79% on room and was initiated on treatment with submental oxygen with improvement in symptoms. While awaiting discharge with home oxygen the patient was found to have new onset atrial fibrillation on EKG. Chest x-ray revealed bilateral pneumonia. Patient found to have acute hypoxemic respiratory failure and was subsequently initiated on supplemental oxygen via nonrebreather mask. Patient admitted to telemetry and treated with medical cardioversion with Cardizem and therapeutic anticoagulation with Eliquis. Patient denies fever, chills, chest pain, palpi tation, skin rash, recent ill contacts. Patient has not received his COVID-19 vaccination. Prior admission on 01/17/2021 reviewed. All medication listed at time of admission has been reconciled. Advanced care planning conducted in ED. Past History Past Medical History: other (See HPI) Past Surgical History: appendectomy Social history: . denies: smoking, alcohol abuse, prescription drug abuse Family history: no significant family history, other (Reviewed) Medications and Allergies Allergies Allergy/AdvReac Type Severity Reaction Status Date / Time No Known Allergies Allergy Verified 05/16/17 02:50 Home Medications Medication Instructions Recorded Confirmed Last Taken Type HYDROcodone/APAP 5-325 [[place] 1 each PO Q6HR PRN #15 tablet 07/14/14 Unknown Rx 5-325 mg TAB] Tizanidine HCl [Zanaflex] 0 mg PO PRN PRN 07/14/14 07/14/14 07/14/14 History methOCARBAMOL [Robaxin TAB] 500 mg PO Q6H #30 tablet 07/14/14 Unknown Rx Silver Sulfadiazine [Silvadene] 1 applic TP BID 14 Days #1 08/03/20 01/16/21 09:00 Rx cream..g. Cyclobenzaprine [Flexeril 10 MG 10 mg PO TID PRN #20 tablet 09/23/20 01/15/21 21:00 Rx TAB] Ascorbic Acid [Vitamin C] 1,000 mg PO BID #60 tablet 01/18/21 Unknown Rx Cholecalciferol (Vitamin D3) 5,000 unit PO DAILY #30 tablet 01/18/21 Unknown Rx [Vitamin D3] Famotidine [Pepcid] 10 mg PO BID #30 tablet 01/18/21 Unknown Rx Zinc Sulfate 220 mg PO BID #60 capsule 01/18/21 Unknown Rx dexAMETHasone [Dexamethasone] 6 mg PO DAILY #9 tablet 01/18/21 Unknown Rx Ascorbic Acid [Vitamin C] 1,000 mg PO DAILY #14 tablet 01/21/21 Unknown Rx Azithromycin [Zithromax Z-ENID] 250 mg PO DAILY #6 tablet 01/21/21 Unknown Rx Cholecalciferol Vit D3 [Vitamin D3 1,000 unit PO QDAY #14 tablet 01/21/21 Unknown Rx 1,000 UNIT TAB] Prednisone [predniSONE 10 mg 10 mg PO .TAPER #1 tab.ds.pk 01/21/21 Unknown Rx (6-Day Pack, 21 Tabs)] Review of Systems Constitutional: fatigue, weakness, malaise Ears, nose, mouth and throat: no ear pain, no ear discharge, no tinnitis, no decreased hearing, no nose pain Cardiovascular: shortness of breath, no chest pain, no orthopnea Respiratory: no cough, no cough with sputum, no shortness of breath Gastrointestinal: no abdominal pain, no nausea, no vomiting, no diarrhea, no constipation Genitourinary Male: no hematuria, no flank pain, no discharge, no urinary frequency, no urinary hesitancy Rectal: no incontinence, no bleeding Musculoskeletal: no neck stiffness, no shooting arm pain, no arm numbness/tingling, no low back pain, no shooting leg pain Integumentary: no rash, no pruritis, no redness, no sores, no wounds, no jaund ice Neurological: no head injury, no transient paralysis, no paralysis, no parathesias, no tremors Psychiatric: no anxiety, no memory loss, no sleep disturbances, no insomnia, no hypersomnia, no change in libido Endocrine: no cold intolerance, no heat intolerance, no polyphagia, no polyuria, no excessive sweating, no flushing, no weight change Hematologic/Lymphatic: no easy bruising, no easy bleeding, no lymphedema Allergic/Immunologic: no urticaria, no wheezing, no persistent infections Exam - Constitutional Vitals: Temp Pulse Resp BP Pulse Ox 99.1 F 119 H 26 H 111/72 97 01/22/21 09:35 01/22/21 14:00 01/22/21 14:00 01/22/21 14:00 01/22/21 14:00 General appearance: Present: mild distress - EENT Eyes: Present: PERRL ENT: hearing intact, clear oral mucosa - Neck Neck: Present: supple, normal ROM - Respiratory Respiratory effort: labored, accessory muscle use Respiratory: bilateral: diminished - Cardiovascular Rhythm: other (Tachycardia) Heart Sounds: Present: S1 & S2. Absent: rub, click - Extremities Extremities: pulses symmetrical, No edema Peripheral Pulses: within normal limits - Abdominal General gastrointestinal: Present: soft, non-tender, non-distended, normal bowel sounds Male genitourinary: Present: normal - Integumentary Integumentary: Present: clear, warm, dry - Musculoskeletal Musculoskeletal: gait normal, strength equal bilaterally - Psychiatric Psychiatric: appropriate mood/affect, intact judgment & insight - Neurologic Neurologic: CNII-XII intact, moves all extremities Results - Labs CBC & Chem 7: 01/21/21 07:34 01/21/21 07:34 Labs: Abnormal lab results 01/21/21 Range/Units Unknown Coronavirus (PCR) Positive A (Negative) Assessment and Plan - Patient Problems (1) Acute hypoxemic respiratory failure Current Visit: Yes Status: Acute Plan to address problem: Chest x-ray, supplemental oxygen, pulse oximetry, nebulizer therapy, pulmonary toilet. (2) Bilateral pneumonia Current Visit: Yes Status: Acute Plan to address problem: Pneumonia protocol: Chest x-ray, CBC, CMP, IV antibiotic therapy, supplemental oxygen, pulse oximetry, nebulizer therapy, blood culture. (3) COVID-19 Current Visit: Yes Status: Acute Plan to address problem: Coronavirus protocol: Contact precaution, isolation precautions, IV antibiotic therapy, IV steroid therapy, supplemental oxygen, pulse oximetry, vitamin D therapy, vitamin D therapy, zinc therapy, therapeutic anticoagulation with Eliquis. (4) New onset atrial fibrillation Current Visit: Yes Status: Acute Plan to address problem: Therapeutic anticoagulation with Eliquis, rate control with Cardizem. (5) DVT prophylaxis Current Visit: Yes Status: Acute Plan to address problem: SCD to bilateral lower extremities while in bed, therapeutic anticoagulation (6) Advance care planning Current Visit: Yes Status: Acute Plan to address problem: Disease education conducted, care plan discussed, diagnosis discussed, prognosis discussed, patient is full code, patient knowledges understanding agree with care plan, case management consulted for assistance with discharge planning.
[2021-01-22] MEDS ORDERED: dilTIAZem 30 MG TAB PO ONE (14:36)
[2021-01-22] MEDS ORDERED: ACETAMINOPHEN 325 MG TAB PO PRN (14:38)
[2021-01-22] MEDS ORDERED: ONDANSETRON 4 MG/2 ML INJ IV PRN (14:38)
[2021-01-22] MEDS ORDERED: HYDROmorphone 1 MG/1 ML INJ IV PRN (14:38)
[2021-01-22] MEDS ORDERED: ALBUTEROL 2.5 MG/3 ML NEBU IH PRN (14:38)
[2021-01-22] MEDS: cefTRIAXone/NS 2 GM/100 ML 2 GM/100 ML BAG IV SCH (15:01)
[2021-01-22] MEDS: APIXABAN 5 MG TAB PO SCH ×2 (15:01→23:20)
[2021-01-22 15:04] LABS: Hematocrit 44.9 % (35.5-45.6); Hemoglobin 15.4 gm/dl (11.8-15.2); Mean Corpuscular HGB Conc 34 % (32-34); Mean Corpuscular Volume 94 fl (84-94); Platelet Count 308 K/mm3 (140-440); Red Cell Distribution Width 13.7 % (13.2-15.2)
[2021-01-22] MEDS: AZITHROMYCIN/NS 500 MG/250 ML 500 MG/250 ML BAG IV SCH (15:36)
[2021-01-22] MEDS: CHOLECALCIFEROL (VIT D3) 1000 UNIT (25 mcg) TAB PO SCH (15:36)
[2021-01-22 15:38] LABS: Free T4 (Free Thyroxine) 1.06 ng/dL (0.76-1.46)
[2021-01-22 15:47] LABS: INR 1.66 (0.87-1.13)
[2021-01-22 15:48] LABS: Partial Thromboplastin Time 31.8 Sec. (24.2-36.6)
[2021-01-22] MEDS: methylPREDNISolone Sod Succinate 40 MG/1 ML INJ IV SCH (23:14)
[2021-01-22] MEDS: ZINC SULFATE 220 MG CAP PO SCH (23:15)
[2021-01-22] MEDS: ASCORBIC ACID 500 MG TAB PO SCH (23:15)
[2021-01-23] MEDS: methylPREDNISolone Sod Succinate 40 MG/1 ML INJ IV SCH ×3 (05:41→21:55)
[2021-01-23 06:02] LABS: Hematocrit 45.8 % (35.5-45.6); Hemoglobin 15.7 gm/dl (11.8-15.2); Mean Corpuscular HGB Conc 34 % (32-34); Mean Corpuscular Volume 93 fl (84-94); Platelet Count 303 K/mm3 (140-440); Red Blood Count 4.92 M/mm3 (3.65-5.03); Red Cell Distribution Width 13.1 % (13.2-15.2)
[2021-01-23 06:13] LABS: Blood Urea Nitrogen 20 mg/dL (9-20); Calcium 8.9 mg/dL (8.4-10.2); Hemolysis Index 6
[2021-01-23 06:15] LABS: BUN/Creatinine Ratio 29
[2021-01-23] MEDS: CHOLECALCIFEROL (VIT D3) 1000 UNIT (25 mcg) TAB PO SCH (09:07)
[2021-01-23] MEDS: APIXABAN 5 MG TAB PO SCH ×2 (09:07→21:53)
[2021-01-23] MEDS: ASCORBIC ACID 500 MG TAB PO SCH ×2 (09:07→21:55)
[2021-01-23] MEDS: ZINC SULFATE 220 MG CAP PO SCH ×2 (09:07→21:55)
--- NOTE | 2021-01-23 09:39 | Progress Note ---
Assessment and Plan Assessment and plan: Assessment and Plan - Patient Problems (1) Acute hypoxemic respiratory failure Current Visit: Yes Status: Acute Plan to address problem: Chest x-ray, supplemental oxygen, pulse oximetry, nebulizer therapy, pulmonary toilet. (2) Bilateral pneumonia Current Visit: Yes Status: Acute Plan to address problem: Pneumonia protocol: Chest x-ray, CBC, CMP, IV antibiotic therapy, supplemental oxygen, pulse oximetry, nebulizer therapy, blood culture. (3) COVID-19 Current Visit: Yes Status: Acute Plan to address problem: Coronavirus protocol: Contact precaution, isolation precautions, IV antibiotic therapy, IV steroid therapy, supplemental oxygen, pulse oximetry, vitamin D therapy, vitamin D therapy, zinc therapy, therapeutic anticoagulation with Eliquis. (4) New onset atrial fibrillation Current Visit: Yes Status: Acute Plan to address problem: Therapeutic anticoagulation with Eliquis, rate control with Cardizem. (5) DVT prophylaxis Current Visit: Yes Status: Acute Plan to address problem: SCD to bilateral lower extremities while in bed, therapeutic anticoagulation (6) Advance care planning Current Visit: Yes Status: Acute Plan to address problem: Disease education conducted, care plan discussed, diagnosis discussed, prognosis discussed, patient is full code, patient knowledges understanding agree with care plan, case management consulted for assistance with discharge planning. 01/23/21 patient is seen and examined. Patient is little bit sleepy. Denied any shortness of breath. Less coughing. No new complain. O2 sat 97% on 2 to 3 L of oxygen. Continue current management and therapeutic anticoagulation with Eliquis. Continue antibiotic, vitamin C Alexa and vitamin D and Solu-Medrol. Wean oxygen. Possible discharge in 1 to 2 days. History of Present Illness Chief complaint: I cannot breathe History of present illness: 56 YO Male with coronavirus infection, Medication Noncompliance presents to ED for evaluation. Pt discharged from [facility] 4 days ago s/p inpatient care. Patient states that he has experienced shortness of breath, fatigue, malaise, generalized weakness over the past 2 weeks with persistent symptoms since his departure from the hospital 4 days ago. EMS was notified and upon arrival the patient was found to be in distress and subsequent transported to [facility] for further care and evaluation of the aforementioned symptoms. The patient was seen and evaluated in the emergency department. All lab and imaging studies reviewed. Patient found to have a pulse oximetry of 79% on room and was initiated on treatment with submental oxygen with improvement in symptoms. While awaiting discharge with home oxygen the patient was found to have new onset atrial fibrillation on EKG. Chest x-ray revealed bilateral pneumonia. Patient found to have acute hypoxemic respiratory failure and was subsequently initiated on supplemental oxygen via nonrebreather mask. Patient admitted to telemetry and treated with medical cardioversion with Cardizem and therapeutic anticoagulation with Eliquis. Patient denies fever, chills, chest pain, palpitation, skin rash, recent ill contacts. Patient has not received his COVID-19 vaccination. Prior admission on 01/17/2021 reviewed. All medication listed at time of admission has been reconciled. Advanced care planning conducted in ED. History Interval history: Patient is seen and examined Lab and med rec is reviewed Patient is doing better. Decreased shortness of breath, less cough. No new complain Hospitalist Physical - Constitutional Vitals: Temp Pulse Resp BP Pulse Ox 99.1 F 100 H 24 111/78 97 01/22/21 09:35 01/22/21 20:00 01/22/21 23:13 01/22/21 20:00 01/22/21 22:10 General appearance: Present: no acute distress, mild distress - EENT Eyes: Present: PERRL, EOM intact ENT: hearing intact, clear oral mucosa, dentition normal - Neck Neck: Present: supple, normal ROM - Respiratory Respiratory effort: normal Respiratory: bilateral: diminished - Cardiovascular Rhythm: regular Heart Sounds: Present: S1 & S2 - Extremities Extremities: no ischemia, pulses intact, No edema Peripheral Pulses: within normal limits - Abdominal General gastrointestinal: soft, non-tender, non-distended, normal bowel sounds - Integumentary Integumentary: Present: clear, warm, dry - Psychiatric Psychiatric: appropriate mood/affect, intact judgment & insight - Neurologic Neurologic: CNII-XII intact, moves all extremities - Allied Health Allied health notes reviewed: nursing Results - Labs CBC & Chem 7: 01/23/21 05:13 01/23/21 05:13 Labs: Laboratory Last Values WBC 6.7 K/mm3 (4.5-11.0) 01/23/21 05:13 RBC 4.92 M/mm3 (3.65-5.03) 01/23/21 05:13 Hgb 15.7 gm/dl (11.8-15.2) H 01/23/21 05:13 Hct 45.8 % (35.5-45.6) H 01/23/21 05:13 MCV 93 fl (84-94) 01/23/21 05:13 MCH 32 pg (28-32) 01/23/21 05:13 MCHC 34 % (32-34) 01/23/21 05:13 RDW 13.1 % (13.2-15.2) L 01/23/21 05:13 Plt Count 303 K/mm3 (140-440) 01/23/21 05:13 Lymph % (Auto) 5.7 % (13.4-35.0) L 01/21/21 07:34 Isabela % (Auto) 3.5 % (0.0-7.3) 01/21/21 07:34 Eos % (Auto) 0.1 % (0.0-4.3) 01/21/21 07:34 Baso % (Auto) 1.2 % (0.0-1.8) 01/21/21 07:34 Lymph # (Auto) 0.5 K/mm3 (1.2-5.4) L 01/21/21 07:34 Isabel[place] # (Auto) 0.3 K/mm3 (0.0-0.8) 01/21/21 07:34 Eos # (Auto) 0.0 K/mm3 (0.0-0.4) 01/21/21 07:34 Baso # (Auto) 0.1 K/mm3 (0.0-0.1) 01/21/21 07:34 Seg Neutrophils % Clothes Drier Repairer 01/23/21 05:13 Seg Neutrophils # 7.3 K/mm3 (1.8-7.7) 01/21/21 07:34 PT 20.1 Sec. (12.2-14.9) H 01/22/21 14:52 INR 1.66 (0.87-1.13) H 01/22/21 14:52 APTT 31.8 Sec. (24.2-36.6) 01/22/21 14:52 D-Dimer 364.54 ng/mlDDU (0-234) H 01/21/21 07:34 Sodium 142 mmol/L (137-145) 01/23/21 05:13 Potassium 3.9 mmol/L (3.6-5.0) 01/23/21 05:13 Chloride 107.9 mmol/L (98-107) H 01/23/21 05:13 Carbon Dioxide 24 mmol/L (22-30) 01/23/21 05:13 Anion Gap 14 mmol/L 01/23/21 05:13 BUN 20 mg/dL (9-20) 01/23/21 05:13 Creatinine 0.7 mg/dL (0.8-1.3) L 01/23/21 05:13 Estimated GFR > 60 ml/min 01/23/21 05:13 BUN/Creatinine Ratio 29 % 01/23/21 05:13 Glucose 177 mg/dL (75-100) H 01/23/21 05:13 POC Glucose 158 mg/dL (70-105) H 01/23/21 07:52 Lactic Acid 2.10 mmol/L (0.7-2.0) H* 01/21/21 10:57 Calcium 8.9 mg/dL (8.4-10.2) 01/23/21 05:13 Magnesium 2.20 mg/dL (1.7-2.3) 01/22/21 14:43 Ferritin 1530.0 ng/mL (30.0-300.0) H 01/21/21 07:34 Total Bilirubin 1.20 mg/dL (0.1-1.2) 01/21/21 07:34 AST 28 units/L (5-40) 01/21/21 07:34 ALT 21 units/L (7-56) 01/21/21 07:34 Alkaline Phosphatase 45 units/L (35-129) 01/21/21 07:34 Lactate Dehydrogenase 443 units/L (91-180) H 01/21/21 07:34 C-Reactive Protein 8.00 mg/dL (0.00-1.30) H 01/21/21 07:34 Total Protein 6.9 g/dL (6.3-8.2) 01/21/21 07:34 Albumin 2.6 g/dL (3.9-5) L 01/21/21 07:34 Albumin/Globulin Ratio 0.6 % 01/21/21 07:34 Procalcitonin 0.12 ng/mL (<0.15) 01/21/21 07:34 TSH 1.080 mlU/mL (0.270-4.200) 01/22/21 14:43 Free T4 1.06 ng/dL (0.76-1.46) 01/22/21 14:43 Coronavirus (PCR) Positive (Negative) A 01/21/21 Unknown Microbiology: Microbiology 01/21/21 07:34 Peripheral/Venous Blood Culture - Preliminary NO GROWTH AFTER 48 HOURS 01/21/21 07:34 Peripheral/Venous Blood Culture - Preliminary NO GROWTH AFTER 48 HOURS - Imaging and Cardiology Chest x-ray: report reviewed CT scan - chest: report reviewed Olmedo/IV: Voiding Method Urinal Active Medications - Current Medications Current Medications: Generic Name Dose Route Start Last Admin Trade Name Freq PRN Reason Stop Dose Admin Acetaminophen 650 mg 01/22/21 14:38 01/22/21 23:13 Acetaminophen 325 Mg Tab PO 650 mg Q4H PRN Administration Pain MILD(1-3)/Fever >100.5/MATUTE Albuterol 2.5 mg 01/22/21 14:38 Albuterol 2.5 Mg/3 Ml Nebu IH Q4HRT PRN Shortness Of Breath Apixaban 5 mg 01/22/21 14:41 01/23/21 09:07 Apixaban 5 Mg Tab PO 5 mg Q12HR BUSHRA Administration Protocol Ascorbic Acid 500 mg 01/22/21 22:00 01/23/21 09:07 Ascorbic Acid 500 Mg Tab PO 500 mg BID BUSHRA Administration Cholecalciferol 1,000 unit 01/22/21 16:00 01/23/21 09:07 Cholecalciferol (Vit D3) 1000 Unit (25 Mcg) Tab PO 1,000 unit DAILY BUSHRA Administration Hydromorphone HCl 0.5 mg 01/22/21 14:38 Hydromorphone 1 Mg/1 Ml Inj IV Q24H PRN Pain , Severe (7-10) Ceftriaxone Sodium 2 gm in 100 mls @ 200 mls/hr 01/22/21 15:00 01/22/21 15:01 Rocephin/Ns 2 Gm/100 Ml IV 01/26/21 15:29 200 mls/hr Q24H BUSHRA Administration Protocol Azithromycin 500 mg in 250 mls @ 250 mls/hr 01/22/21 15:00 01/22/21 15:36 Zithromax/Ns IV 01/26/21 15:59 250 mls/hr Q24H BUSHRA Administration Protocol Methylprednisolone Sodium Succinate 40 mg 01/22/21 22:00 01/23/21 05:41 Methylprednisolone Sod Succinate 40 Mg/1 Ml Inj IV 40 mg Q8HR BUSHRA Administration Ondansetron HCl 4 mg 01/22/21 14:38 Ondansetron 4 Mg/2 Ml Inj IV Q8H PRN Nausea And Vomiting Oxycodone/Acetaminophen 1 tab 01/22/21 14:38 Oxycodone /Acetaminophen 5-325mg Tab PO Q12H PRN Pain, Moderate (4-6) Sodium Chloride 10 ml 01/22/21 22:00 01/23/21 09:08 Sodium Chloride 0.9% 10 Ml Flush Syringe IV 10 ml BID BUSHRA Administration Sodium Chloride 10 ml 01/22/21 14:38 01/23/21 05:42 Sodium Chloride 0.9% 10 Ml Flush Syringe IV 10 ml PRN PRN Administration LINE FLUSH Zinc Sulfate 220 mg 01/22/21 22:00 01/23/21 09:07 Zinc Sulfate 220 Mg Cap PO 220 mg BID BUSHRA Administration Nutrition/Malnutrition Assess - Malnutrition Assessment Minimum of two criteria: No physical signs of malnutrition - Attestation Statement I have reviewed and agreed w/ Malnutrition eval & tx plan: Yes
[2021-01-23] MEDS ORDERED: CHOLECALCIFEROL (VIT D3) 400 UNIT TAB PO SCH (10:00)
--- NOTE | 2021-01-23 13:09 | Electrocardiograph Report ---
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
--- NOTE | 2021-01-23 13:16 | Electrocardiograph Report ---
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
[2021-01-23] MEDS: AZITHROMYCIN/NS 500 MG/250 ML 500 MG/250 ML BAG IV SCH (14:02)
[2021-01-23] MEDS: cefTRIAXone/NS 2 GM/100 ML 2 GM/100 ML BAG IV SCH (14:03)
[2021-01-23 16:50] LABS: Band Neutrophils # (Manual) 0.1 K/mm3; Total Cells Counted 100
[2021-01-23 16:51] LABS: Platelet Estimate Consistent w Auto
[2021-01-23] MEDS: oxyCODONE /ACETAMINOPHEN 5-325MG TAB PO PRN (19:22)
[2021-01-24] MEDS: methylPREDNISolone Sod Succinate 40 MG/1 ML INJ IV SCH ×3 (05:48→22:55)
[2021-01-24 07:43] LABS: Hematocrit 43.3 % (35.5-45.6); Hemoglobin 14.9 gm/dl (11.8-15.2); Mean Corpuscular HGB Conc 35 % (32-34); Mean Corpuscular Volume 94 fl (84-94); Platelet Count 301 K/mm3 (140-440); Red Blood Count 4.58 M/mm3 (3.65-5.03); Red Cell Distribution Width 13.1 % (13.2-15.2)
[2021-01-24] MEDS: ZINC SULFATE 220 MG CAP PO SCH ×2 (09:02→22:55)
[2021-01-24] MEDS: APIXABAN 5 MG TAB PO SCH ×2 (09:02→22:55)
[2021-01-24] MEDS: CHOLECALCIFEROL (VIT D3) 1000 UNIT (25 mcg) TAB PO SCH (09:02)
[2021-01-24] MEDS: ASCORBIC ACID 500 MG TAB PO SCH ×2 (09:02→22:55)
[2021-01-24] MEDS ORDERED: REMDESIVIR 200 MG in SODIUM CHLORIDE 0.9% 250ML 250 ML IV ONE (11:30)
[2021-01-24] MEDS ORDERED: SODIUM CHLORIDE 0.9% 50 ML IVPB IV SCH (12:00)
--- NOTE | 2021-01-24 12:57 | Progress Note ---
Assessment and Plan Assessment and plan: 56 YO Male with coronavirus infection, Medication Noncompliance presents to ED for evaluation. Pt discharged from [facility] 4 days ago s/p inpatient care. Patient states that he has experienced shortness of breath, fatigue, malaise, generalized weakness over the past 2 weeks with persistent symptoms since his departure from the hospital 4 days ago. EMS was notified and upon arrival the patient was found to be in distress and subsequent transported to [facility] for further care and evaluation of the aforementioned symptoms. The patient was seen and evaluated in the emergency department. All lab and imaging studies reviewed. Patient found to have a pulse oximetry of 79% on room and was initiated on treatment with submental oxygen with improvement in symptoms. While awaiting discharge with home oxygen the patient was found to have new onset atrial fibrillation on EKG. Chest x-ray revealed bilateral pneumonia. Patient found to have acute hypoxemic respiratory failure and was subsequently initiated on supplemental oxygen via nonrebreather mask. Patient admitted to telemetry and treated with medical cardioversion with Cardizem and therapeutic anticoagulation with Eliquis. Patient denies fever, chills, chest pain, palpitation, skin rash, recent ill contacts. Patient has not received his COVID -19 vaccination. Prior admission on 01/17/2021 reviewed. All medication listed at time of admission has been reconciled. Advanced care planning conducted in ED. 01/23/21 patient is seen and examined. Patient is little bit sleepy. Denied any shortness of breath. Less coughing. No new complain. O2 sat 97% on 2 to 3 L of oxygen. Continue current management and therapeutic anticoagulation with Eliquis. Continue antibiotic, vitamin C Alexa and vitamin D and Solu-Medrol. Wean oxygen. Possible discharge in 1 to 2 days. 01/24/21: Patient seen and on 5 liters of oxygen, will obtain ID consult for possible Remdesivir, Consult Cardiology for the noted A Fib. Encourage Pronining (1) Acute hypoxemic respiratory failure Current Visit: Yes Status: Acute Plan to address problem: Chest x-ray, supplemental oxygen, pulse oximetry, nebulizer therapy, pulmonary toilet. (2) Bilateral pneumonia Current Visit: Yes Status: Acute Plan to address problem: Pneumonia protocol: Chest x-ray, CBC, CMP, IV antibiotic therapy, supplemental oxygen, pulse oximetry, nebulizer therapy, blood culture. (3) COVID-19 Current Visit: Yes Status: Acute Plan to address problem: Coronavirus protocol: Contact precaution, isolation precautions, IV antibiotic therapy, IV steroid therapy, supplemental oxygen, pulse oximetry, vitamin D therapy, vitamin D therapy, zinc therapy, therapeutic anticoagulation with Eliquis. (4) New onset atrial fibrillation Current Visit: Yes Status: Acute Plan to address problem: Therapeutic anticoagulation with Eliquis, rate control with Cardizem. (5) DVT prophylaxis Current Visit: Yes Status: Acute Plan to address problem: SCD to bilateral lower extremities while in bed, therapeutic anticoagulation (6) Advance care planning Current Visit: Yes Status: Acute Plan to address problem: Disease education conducted, care plan discussed, diagnosis discussed, prognosis discussed, patient is full code, patient knowledges understanding agree with care plan, case management consulted for assistance with discharge planning. History Interval history: Patient seen and examined, still with shortness of breath, positive with COVID. Hospitalist Physical - Physical exam Narrative exam: General appearance: Present: no acute distress, mild distress - EENT Eyes: Present: PERRL, EOM intact ENT: hearing intact, clear oral mucosa, dentition normal - Neck Neck: Present: supple, normal ROM - Respiratory Respiratory effort: normal Respiratory: bilateral: diminished, crackles - Cardiovascular Rhythm: regular Heart Sounds: Present: S1 & S2 - Extremities Extremities: no ischemia, pulses intact, No edema Peripheral Pulses: within normal limits - Abdominal General gastrointestinal: soft, non-tender, non-distended, normal bowel sounds - Integumentary Integumentary: Present: clear, warm, dry - Psychiatric Psychiatric: appropriate mood/affect, intact judgment & insight - Neurologic Neurologic: CNII-XII intact, moves all extremities - Allied Health Allied health notes reviewed: nursing - Constitutional Vitals: Temp Pulse Resp BP Pulse Ox 97.7 F 99 H 18 104/56 95 01/24/21 11:13 01/24/21 11:13 01/24/21 11:13 01/24/21 11:13 01/24/21 11:13 General appearance: Present: no acute distress, mild distress Results - Labs CBC & Chem 7: 01/24/21 07:04 01/23/21 05:13 Labs: Laboratory Last Values WBC 12.6 K/mm3 (4.5-11.0) H 01/24/21 07:04 RBC 4.58 M/mm3 (3.65-5.03) 01/24/21 07:04 Hgb 14.9 gm/dl (11.8-15.2) 01/24/21 07:04 Hct 43.3 % (35.5-45.6) 01/24/21 07:04 MCV 94 fl (84-94) 01/24/21 07:04 MCH 33 pg (28-32) H 01/24/21 07:04 MCHC 35 % (32-34) H 01/24/21 07:04 RDW 13.1 % (13.2-15.2) L 01/24/21 07:04 Plt Count 301 K/mm3 (140-440) 01/24/21 07:04 Lymph % (Auto) 5.7 % (13.4-35.0) L 01/21/21 07:34 Lamb % (Auto) 3.5 % (0.0-7.3) 01/21/21 07:34 Eos % (Auto) 0.1 % (0.0-4.3) 01/21/21 07:34 Baso % (Auto) 1.2 % (0.0-1.8) 01/21/21 07:34 Lymph # (Auto) 0.5 K/mm3 (1.2-5.4) L 01/21/21 07:34 Lamb # (Auto) 0.3 K/mm3 (0.0-0.8) 01/21/21 07:34 Eos # (Auto) 0.0 K/mm3 (0.0-0.4) 01/21/21 07:34 Baso # (Auto) 0.1 K/mm3 (0.0-0.1) 01/21/21 07:34 Add Manual Diff Complete 01/23/21 05:13 Total Counted 100 01/23/21 05:13 Seg Neutrophils % Director Imaging 01/23/21 05:13 Seg Neuts % (Manual) 94.0 % (40.0-70.0) H 01/23/21 05:13 Band Neutrophils % 1.0 % 01/23/21 05:13 Lymphocytes % (Manual) 3.0 % (13.4-35.0) L 01/23/21 05:13 Monocytes % (Manual) 2.0 % (0.0-7.3) 01/23/21 05:13 Nucleated RBC % Not Reportable 01/23/21 05:13 Seg Neutrophils # 7.3 K/mm3 (1.8-7.7) 01/21/21 07:34 Seg Neutrophils # Man 6.3 K/mm3 (1.8-7.7) 01/23/21 05:13 Band Neutrophils # 0.1 K/mm3 01/23/21 05:13 Lymphocytes # (Manual) 0.2 K/mm3 (1.2-5.4) L 01/23/21 05:13 Abs React Lymphs (Man) 0.0 K/mm3 01/23/21 05:13 Monocytes # (Manual) 0.1 K/mm3 (0.0-0.8) 01/23/21 05:13 Eosinophils # (Manual) 0.0 K/mm3 (0.0-0.4) 01/23/21 05:13 Basophils # (Manual) 0.0 K/mm3 (0.0-0.1) 01/23/21 05:13 Metamyelocytes # 0.0 K/mm3 01/23/21 05:13 Myelocytes # 0.0 K/mm3 01/23/21 05:13 Promyelocytes # 0.0 K/mm3 01/23/21 05:13 Blast Cells # 0.0 K/mm3 01/23/21 05:13 WBC Morphology Not Reportable 01/23/21 05:13 Hypersegmented Neuts Not Reportable 01/23/21 05:13 Hyposegmented Neuts Not Reportable 01/23/21 05:13 Hypogranular Neuts Not Reportable 01/23/21 05:13 Smudge Cells Not Reportable 01/23/21 05:13 Toxic Granulation Not Reportable 01/23/21 05:13 Toxic Vacuolation Not Reportable 01/23/21 05:13 Dohle Bodies Not Reportable 01/23/21 05:13 Pelger-Huet Anomaly Not Reportable 01/23/21 05:13 Lito Rods Not Reportable 01/23/21 05:13 Platelet Estimate Consistent w auto 01/23/21 05:13 Clumped Platelets Not Reportable 01/23/21 05:13 Plt Clumps, EDTA Not Reportable 01/23/21 05:13 Large Platelets Not Reportable 01/23/21 05:13 Giant Platelets Not Reportable 01/23/21 05:13 Platelet Satelliting Not Reportable 01/23/21 05:13 Plt Morphology Comment Not Reportable 01/23/21 05:13 RBC Morphology Not Reportable 01/23/21 05:13 Dimorphic RBCs Not Reportable 01/23/21 05:13 Polychromasia Not Reportable 01/23/21 05:13 Hypochromasia Not Reportable 01/23/21 05:13 Poikilocytosis Not Reportable 01/23/21 05:13 Anisocytosis Not Reportable 01/23/21 05:13 Microcytosis Not Reportable 01/23/21 05:13 Macrocytosis Not Reportable 01/23/21 05:13 Spherocytes Not Reportable 01/23/21 05:13 Pappenheimer Bodies Not Reportable 01/23/21 05:13 Sickle Cells Not Reportable 01/23/21 05:13 Target Cells Not Reportable 01/23/21 05:13 Tear Drop Cells Not Reportable 01/23/21 05:13 Ovalocytes Not Reportable 01/23/21 05:13 Helmet Cells Not Reportable 01/23/21 05:13 Hall-Midfield Bodies Not Reportable 01/23/21 05:13 Bertha Rings Not Reportable 01/23/21 05:13 Camila Cells Not Reportable 01/23/21 05:13 Bite Cells Not Reportable 01/23/21 05:13 Crenated Cell Not Reportable 01/23/21 05:13 Elliptocytes Not Reportable 01/23/21 05:13 Acanthocytes (Spur) Not Reportable 01/23/21 05:13 Rouleaux Not Reportable 01/23/21 05:13 Hemoglobin C Crystals Not Reportable 01/23/21 05:13 Schistocytes Not Reportable 01/23/21 05:13 Malaria parasites Not Reportable 01/23/21 05:13 Matthew Bodies Not Reportable 01/23/21 05:13 Hem Pathologist Commnt No 01/23/21 05:13 PT 20.1 Sec. (12.2-14.9) H 01/22/21 14:52 INR 1.66 (0.87-1.13) H 01/22/21 14:52 APTT 31.8 Sec. (24.2-36.6) 01/22/21 14:52 D-Dimer 364.54 ng/mlDDU (0-234) H 01/21/21 07:34 Sodium 142 mmol/L (137-145) 01/23/21 05:13 Potassium 3.9 mmol/L (3.6-5.0) 01/23/21 05:13 Chloride 107.9 mmol/L (98-107) H 01/23/21 05:13 Carbon Dioxide 24 mmol/L (22-30) 01/23/21 05:13 Anion Gap 14 mmol/L 01/23/21 05:13 BUN 20 mg/dL (9-20) 01/23/21 05:13 Creatinine 0.7 mg/dL (0.8-1.3) L 01/23/21 05:13 Estimated GFR > 60 ml/min 01/23/21 05:13 BUN/Creatinine Ratio 29 % 01/23/21 05:13 Glucose 177 mg/dL (75-100) H 01/23/21 05:13 POC Glucose 191 mg/dL (70-105) H 01/24/21 11:10 Lactic Acid 2.10 mmol/L (0.7-2.0) H* 01/21/21 10:57 Calcium 8.9 mg/dL (8.4-10.2) 01/23/21 05:13 Magnesium 2.20 mg/dL (1.7-2.3) 01/22/21 14:43 Ferritin 1530.0 ng/mL (30.0-300.0) H 01/21/21 07:34 Total Bilirubin 1.20 mg/dL (0.1-1.2) 01/21/21 07:34 AST 28 units/L (5-40) 01/21/21 07:34 ALT 21 units/L (7-56) 01/21/21 07:34 Alkaline Phosphatase 45 units/L (35-129) 01/21/21 07:34 Lactate Dehydrogenase 443 units/L (91-180) H 01/21/21 07:34 C-Reactive Protein 8.00 mg/dL (0.00-1.30) H 01/21/21 07:34 Total Protein 6.9 g/dL (6.3-8.2) 01/21/21 07:34 Albumin 2.6 g/dL (3.9-5) L 01/21/21 07:34 Albumin/Globulin Ratio 0.6 % 01/21/21 07:34 Procalcitonin 0.12 ng/mL (<0.15) 01/21/21 07:34 TSH 1.080 mlU/mL (0.270-4.200) 01/22/21 14:43 Free T4 1.06 ng/dL (0.76-1.46) 01/22/21 14:43 Coronavirus (PCR) Positive (Negative) A 01/21/21 Unknown Microbiology: Microbiology 01/21/21 07:34 Peripheral/Venous Blood Culture - Preliminary NO GROWTH AFTER 72 HOURS 01/21/21 07:34 Peripheral/Venous Blood Culture - Preliminary NO GROWTH AFTER 72 HOURS Olmedo/IV: Voiding Method Incontinent Active Medications - Current Medications Current Medications: Generic Name Dose Route Start Last Admin Trade Name Freq PRN Reason Stop Dose Admin Acetaminophen 650 mg 01/22/21 14:38 01/22/21 23:13 Acetaminophen 325 Mg Tab PO 650 mg Q4H PRN Administration Pain MILD(1-3)/Fever >100.5/MATUTE Albuterol 2.5 mg 01/22/21 14:38 Albuterol 2.5 Mg/3 Ml Nebu IH Q4HRT PRN Shortness Of Breath Apixaban 5 mg 01/22/21 14:41 01/24/21 09:02 Apixaban 5 Mg Tab PO 5 mg Q12HR BUSHRA Administration Protocol Ascorbic Acid 500 mg 01/22/21 22:00 01/24/21 09:02 Ascorbic Acid 500 Mg Tab PO 500 mg BID BUSHRA Administration Cholecalciferol 1,000 unit 01/22/21 16:00 01/24/21 09:02 Cholecalciferol (Vit D3) 1000 Unit (25 Mcg) Tab PO 1,000 unit DAILY BUSHRA Administration Hydromorphone HCl 0.5 mg 01/22/21 14:38 Hydromorphone 1 Mg/1 Ml Inj IV Q24H PRN Pain , Severe (7-10) Ceftriaxone Sodium 2 gm in 100 mls @ 200 mls/hr 01/22/21 15:00 01/23/21 20:55 Rocephin/Ns 2 Gm/100 Ml IV 01/26/21 15:29 Infused Q24H BUSHRA Infusion Protocol Azithromycin 500 mg in 250 mls @ 250 mls/hr 01/22/21 15:00 01/23/21 20:55 Zithromax/Ns IV 01/26/21 15:59 Infused Q24H BUSHRA Infusion Protocol REMDESIVIR 100 mg/ Sodium 250 mls @ 500 mls/hr 01/25/21 21:00 Chloride IV 01/28/21 21:29 Q24HR@2100 BUSHRA Methylprednisolone Sodium Succinate 40 mg 01/22/21 22:00 01/24/21 05:48 Methylprednisolone Sod Succinate 40 Mg/1 Ml Inj IV 40 mg Q8HR BUSHRA Administration Ondansetron HCl 4 mg 01/22/21 14:38 Ondansetron 4 Mg/2 Ml Inj IV Q8H PRN Nausea And Vomiting Oxycodone/Acetaminophen 1 tab 01/22/21 14:38 01/23/21 19:22 Oxycodone /Acetaminophen 5-325mg Tab PO 1 tab Q12H PRN Administration Pain, Moderate (4-6) Sodium Chloride 10 ml 01/22/21 22:00 01/24/21 09:01 Sodium Chloride 0.9% 10 Ml Flush Syringe IV 10 ml BID BUSHRA Administration Sodium Chloride 10 ml 01/22/21 14:38 01/23/21 05:42 Sodium Chloride 0.9% 10 Ml Flush Syringe IV 10 ml PRN PRN Administration LINE FLUSH Sodium Chloride 50 ml 01/24/21 12:00 Sodium Chloride 0.9% 50 Ml Ivpb IV 01/28/21 21:01 Q24HR@2100 BUSHRA Zinc Sulfate 220 mg 01/22/21 22:00 01/24/21 09:02 Zinc Sulfate 220 Mg Cap PO 220 mg BID BUSHRA Administration
[2021-01-24] MEDS: oxyCODONE /ACETAMINOPHEN 5-325MG TAB PO PRN ×2 (13:39→23:02)
[2021-01-24] MEDS: FUROSEMIDE 40 MG/4 ML INJ IV SCH (14:22)
[2021-01-24] MEDS: cefTRIAXone/NS 2 GM/100 ML 2 GM/100 ML BAG IV SCH (14:22)
[2021-01-24] MEDS: AZITHROMYCIN/NS 500 MG/250 ML 500 MG/250 ML BAG IV SCH (14:22)
--- NOTE | 2021-01-24 15:58 | Consultation ---
History of Present Illness - Reason for Consult Consult date: 01/24/21 COVID - History of Present Illness 56-year-old male with history of kidney stones, initially admitted on 01/16/2021 and discharged on 01/18/2021 to 2-week history of cough, ear pain, chills, fever, diarrhea and progressive shortness of breath. Patient was found to have COVID- 19 pneumonia mildly elevated markers sats down to 90%, patient was placed on 2 L. Patient was not a candidate for remdesivir or Tocilizumab. Patient is readmitted on 01/21/2021 secondary to shortness of breath, fatigue, weakness since discharge. Upon EMS evaluation patient was found in acute respiratory distress. 97.8, HR 139, RR 20, sat 95%, over 79 122/56. Initial WBC 8.1. D- dimer 304. CRP 8. Ferritin 1530. Blood culture 2020 no growth today. CTA shows no PE, bilateral airspace disease. Patient is currently on salter 15 L. Review of Systems: reviewed ED and H&P notes. Review of system deferred to minimize COVID-19 transmission. Past History Past Medical History: other (See HPI) Past Surgical History: appendectomy Social history: . denies: smoking, alcohol abuse, prescription drug abuse Family history: no significant family history, other (Reviewed) Medications and Allergies Allergies Allergy/AdvReac Type Severity Reaction Status Date / Time No Known Allergies Allergy Verified 05/16/17 02:50 Home Medications Medication Instructions Recorded Confirmed Last Taken Type HYDROcodone/APAP 5-325 [[place] 1 each PO Q6HR PRN #15 tablet 07/14/14 01/24/21 Unknown Rx 5-325 mg TAB] Tizanidine HCl [Zanaflex] 4 mg PO PRN PRN 07/14/14 01/24/21 07/14/14 History methOCARBAMOL [Robaxin TAB] 500 mg PO Q6H #30 tablet 07/14/14 01/24/21 Unknown Rx Silver Sulfadiazine [Silvadene] 1 applic TP BID 14 Days #1 08/03/20 01/24/21 01/16/21 09:00 Rx cream..g. Cyclobenzaprine [Flexeril 10 MG 10 mg PO TID PRN #20 tablet 09/23/20 01/24/21 01/15/21 21:00 Rx TAB] Ascorbic Acid [Vitamin C] 1,000 mg PO BID #60 tablet 01/18/21 01/24/21 Unknown Rx Cholecalciferol (Vitamin D3) 5,000 unit PO DAILY #30 tablet 01/18/21 01/24/21 Unknown Rx [Vitamin D3] Famotidine [Pepcid] 10 mg PO BID #30 tablet 01/18/21 01/24/21 Unknown Rx Zinc Sulfate 220 mg PO BID #60 capsule 01/18/21 01/24/21 Unknown Rx dexAMETHasone [Dexamethasone] 6 mg PO DAILY #9 tablet 01/18/21 01/24/21 Unknown Rx Ascorbic Acid [Vitamin C] 1,000 mg PO DAILY #14 tablet 01/21/21 Unknown Rx Azithromycin [Zithromax Z-ENID] 250 mg PO DAILY #6 tablet 01/21/21 Unknown Rx Cholecalciferol Vit D3 [Vitamin D3 1,000 unit PO QDAY #14 tablet 01/21/21 Unknown Rx 1,000 UNIT TAB] Prednisone [predniSONE 10 mg 10 mg PO .TAPER #1 tab.ds.pk 01/21/21 Unknown Rx (6-Day Pack, 21 Tabs)] Active Meds: Active Medications Acetaminophen (Acetaminophen 325 Mg Tab) 650 mg PO Q4H PRN PRN Reason: Pain MILD(1-3)/Fever >100.5/MATUTE Last Admin: 01/22/21 23:13 Dose: 650 mg Documented by: Albuterol (Albuterol 2.5 Mg/3 Ml Nebu) 2.5 mg IH Q4HRT PRN PRN Reason: Shortness Of Breath Apixaban (Apixaban 5 Mg Tab) 5 mg PO Q12HR BUSHRA; Protocol Last Admin: 01/24/21 09:02 Dose: 5 mg Documented by: Ascorbic Acid (Ascorbic Acid 500 Mg Tab) 500 mg PO BID BUSHRA Last Admin: 01/24/21 09:02 Dose: 500 mg Documented by: Cholecalciferol (Cholecalciferol (Vit D3) 1000 Unit (25 Mcg) Tab) 1,000 unit PO DAILY BUSHRA Last Admin: 01/24/21 09:02 Dose: 1,000 unit Documented by: Furosemide (Furosemide 40 Mg/4 Ml Inj) 40 mg IV QDAY BUSHRA Stop: 01/26/21 10:01 Last Admin: 01/24/21 14:22 Dose: 40 mg Documented by: Hydromorphone HCl (Hydromorphone 1 Mg/1 Ml Inj) 0.5 mg IV Q24H PRN PRN Reason: Pain , Severe (7-10) Ceftriaxone Sodium (Rocephin/Ns 2 Gm/100 Ml) 2 gm in 100 mls @ 200 mls/hr IV Q24H BUSHRA; Protocol Stop: 01/26/21 15:29 Last Admin: 01/24/21 14:22 Dose: 200 mls/hr Documented by: Azithromycin (Zithromax/Ns) 500 mg in 250 mls @ 250 mls/hr IV Q24H BUSHRA; Protocol Stop: 01/26/21 15:59 Last Admin: 01/24/21 14:22 Dose: 250 mls/hr Documented by: REMDESIVIR 100 mg/ Sodium (Chloride) 250 mls @ 500 mls/hr IV Q24HR@2100 BUSHRA Stop: 01/28/21 21:29 Methylprednisolone Sodium Succinate (Methylprednisolone Sod Succinate 40 Mg/1 Ml Inj) 40 mg IV Q8HR BUSHRA Last Admin: 01/24/21 13:38 Dose: 40 mg Documented by: Ondansetron HCl (Ondansetron 4 Mg/2 Ml Inj) 4 mg IV Q8H PRN PRN Reason: Nausea And Vomiting Oxycodone/Acetaminophen (Oxycodone /Acetaminophen 5-325mg Tab) 1 tab PO Q12H PRN PRN Reason: Pain, Moderate (4-6) Last Admin: 01/24/21 13:39 Dose: 1 tab Documented by: Sodium Chloride (Sodium Chloride 0.9% 10 Ml Flush Syringe) 10 ml IV BID BUSHRA Last Admin: 01/24/21 09:01 Dose: 10 ml Documented by: Sodium Chloride (Sodium Chloride 0.9% 10 Ml Flush Syringe) 10 ml IV PRN PRN PRN Reason: LINE FLUSH Last Admin: 01/23/21 05:42 Dose: 10 ml Documented by: Sodium Chloride (Sodium Chloride 0.9% 50 Ml Ivpb) 50 ml IV Q24HR@2100 BUSHRA Stop: 01/28/21 21:01 Last Admin: 01/24/21 11:00 Dose: 50 ml Documented by: Zinc Sulfate (Zinc Sulfate 220 Mg Cap) 220 mg PO BID BUSHRA Last Admin: 01/24/21 09:02 Dose: 220 mg Documented by: Physical Examination - Physical Exam Narrative exam: Physical exam deferred to minimize COVID-19 transmission during pandemic. - Constitutional Vitals: Vital Signs Temp Pulse Resp BP Pulse Ox 97.7 F 99 H 18 104/56 95 01/24/21 11:13 01/24/21 11:13 01/24/21 11:13 01/24/21 11:13 01/24/21 11:13 Temperature -Last 24 Hours Temperature 97.7 F Temperature 97.5 F Temperature 97.7 F Temperature 97.8 F Results - Labs CBC & Chem 7: 01/24/21 07:04 01/23/21 05:13 Labs: Abnormal lab results 01/23/21 01/23/21 01/24/21 Range/Units 05:13 21:40 07:04 WBC 12.6 H (4.5-11.0) K/mm3 MCH 33 H (28-32) pg MCHC 35 H (32-34) % RDW 13.1 L (13.2-15.2) % Seg Neuts % (Manual) 94.0 H (40.0-70.0) % Lymphocytes % (Manual) 3.0 L (13.4-35.0) % Lymphocytes # (Manual) 0.2 L (1.2-5.4) K/mm3 POC Glucose 157 H (70-105) mg/dL 01/24/21 01/24/21 Range/Units 07:56 11:10 WBC (4.5-11.0) K/mm3 MCH (28-32) pg MCHC (32-34) % RDW (13.2-15.2) % Seg Neuts % (Manual) (40.0-70.0) % Lymphocytes % (Manual) (13.4-35.0) % Lymphocytes # (Manual) (1.2-5.4) K/mm3 POC Glucose 162 H 191 H (70-105) mg/dL Assessment and Plan Cultures: Blood culture no growth today SARS CoV2 PCR positive Assessment: 56-year-old male with history of kidney stones, initially admitted on 01/16/2021 and discharged on 01/18/2021 to 2-week history of cough, ear pain, chills, fever, diarrhea and progressive shortness of breath. Patient was found to have COVID-19 pneumonia mildly elevated markers, sats down to 90%, patient was placed on 2 L. Patient was not a candidate for remdesivir or Tocilizumab, readmitted on 01/21/2021 secondary to shortness of breath, fatigue, weakness since discharge: #Severe COVID pneumonia: CXR with bilateral pneumonia. Infllammatory markers elevated CRP 8. CTA shows no PE, bilateral airspace disease. #Acute hypoxemic respiratory failure: Patient is currently on salter 15 L #RVR Afib: due to COVID Recommendations: -Steroids for 10 days -No candidate for remdesivir symptoms for more than 2 weeks -No candidate for patient is on salter 15L, if patient requires >30L consider Tocilizumab/CRP>7.5 mg per pharmacy protocol -Monitor inflammatory markers - ferritin, Ddimer, CRP, LDH -Monitor liver function test on Remdesivir -Continue anticoagulation per System Protocol -Prone positioning as possible -Stop ceftriaxone and azithromycin if procalcitonin <0.25 ng/mL All laboratory, cultures and imaging were reviewed. Will follow Bridget Voss MD Infectious Diseases [facility] M [phone]
[2021-01-25] MEDS: methylPREDNISolone Sod Succinate 40 MG/1 ML INJ IV SCH ×3 (06:06→22:32)
[2021-01-25 08:23] LABS: Alanine Aminotransferase 54 units/L (7-56); Albumin 2.6 g/dL (3.9-5); Blood Urea Nitrogen 23 mg/dL (9-20); Calcium 8.5 mg/dL (8.4-10.2); Hemolysis Index 104
[2021-01-25 08:24] LABS: BUN/Creatinine Ratio 46
--- NOTE | 2021-01-25 09:31 | Progress Note ---
Assessment and Plan Assessment and plan: 56 YO Male with coronavirus infection, Medication Noncompliance presents to ED for evaluation. Pt discharged from [facility] 4 days ago s/p inpatient care. Patient states that he has experienced shortness of breath, fatigue, malaise, generalized weakness over the past 2 weeks with persistent symptoms since his departure from the hospital 4 days ago. EMS was notified and upon arrival the patient was found to be in distress and subsequent transported to [facility] for further care and evaluation of the aforementioned symptoms. The patient was seen and evaluated in the emergency department. All lab and imaging studies reviewed. Patient found to have a pulse oximetry of 79% on room and was initiated on treatment with submental oxygen with improvement in symptoms. While awaiting discharge with home oxygen the patient was found to have new onset atrial fibrillation on EKG. Chest x-ray revealed bilateral pneumonia. Patient found to have acute hypoxemic respiratory failure and was subsequently initiated on supplemental oxygen via nonrebreather mask. Patient admitted to telemetry and treated with medical cardioversion with Cardizem and therapeutic anticoagulation with Eliquis. Patient denies fever, chills, chest pain, palpitation, skin rash, recent ill contacts. Patient has not received his COVI D-19 vaccination. Prior admission on 01/17/2021 reviewed. All medication listed at time of admission has been reconciled. Advanced care planning conducted in ED. 01/23/21 patient is seen and examined. Patient is little bit sleepy. Denied any shortness of breath. Less coughing. No new complain. O2 sat 97% on 2 to 3 L of oxygen. Continue current management and therapeutic anticoagulation with Eliquis. Continue antibiotic, vitamin C Alexa and vitamin D and Solu-Medrol. Wean oxygen. Possible discharge in 1 to 2 days. 01/24/21: Patient seen and on 5 liters of oxygen, will obtain ID consult for possible Remdesivir, Consult Cardiology for the noted A Fib. Encourage Pronining 01/25/21: Cardiology evaluated patient for atrial fibrillation and cardiomyopathy. Recommend A/c and rate control strategy. Will request records regarding cardiomyopathy with EF 30%. Optimize heart failure therapy. Will attempt to de-escalate O2 as patient tolerates. Not a candidate for remdesivir due to symptom onset and actemra at this time. May consider if patient worsens. Continue to encourage proning. (1) Acute hypoxemic respiratory failure Current Visit: Yes Status: Acute Plan to address problem: Chest x-ray, supplemental oxygen, pulse oximetry, nebulizer therapy, pulmonary toilet. (2) Bilateral pneumonia Current Visit: Yes Status: Acute Plan to address problem: Pneumonia protocol: Chest x-ray, CBC, CMP, IV antibiotic therapy, supplemental oxygen, pulse oximetry, nebulizer therapy, blood culture. (3) COVID-19 Current Visit: Yes Status: Acute Plan to address problem: Coronavirus protocol: Contact precaution, isolation precautions, IV antibiotic therapy, IV steroid therapy, supplemental oxygen, pulse oximetry, vitamin D therapy, vitamin D therapy, zinc therapy, therapeutic anticoagulation with Eliq uis. (4) New onset atrial fibrillation Current Visit: Yes Status: Acute Plan to address problem: Chronicity unclear, therapeutic anticoagulation with Eliquis, rate control with Cardizem on presentation Currently rate controlled Therapy per cardiology team (5) Dilated Cardiomyopathy Current Visit: Yes Status: Acute Plan to address problem: Chronicity unclear ECHO: EF 30%, four-chamber dilation Records request GDMT: Lasix, Coreg, spironolactone, Zestril (5) DVT prophylaxis Current Visit: Yes Status: Acute Plan to address problem: SCD to bilateral lower extremities while in bed, therapeutic anticoagulation (6) Advance care planning Current Visit: Yes Status: Acute Plan to address problem: Disease education conducted, care plan discussed, diagnosis discussed, prognosis discussed, patient is full code, patient knowledges understanding agree with care plan, case management consulted for assistance with discharge planning. History Interval history: No acute complaints on encounter. He is resting comfortably not in distress. HFNC in place. Hospitalist Physical - Physical exam Narrative exam: General appearance: Present: no acute distress, mild distress - EENT Eyes: Present: PERRL, EOM intact ENT: hearing intact, clear oral mucosa, dentition normal - Neck Neck: Present: supple, normal ROM - Respiratory Respiratory effort: normal Respiratory: bilateral: diminished, crackles - Cardiovascular Rhythm: regular Heart Sounds: Present: S1 & S2 - Extremities Extremities: no ischemia, pulses intact, No edema Peripheral Pulses: within normal limits - Abdominal General gastrointestinal: soft, non-tender, non-distended, normal bowel sounds - Integumentary Integumentary: Present: clear, warm, dry - Psychiatric Psychiatric: appropriate mood/affect, intact judgment & insight - Neurologic Neurologic: CNII-XII intact, moves all extremities - Allied Health Allied health notes reviewed: nursing - Constitutional Vitals: Temp Pulse Resp BP Pulse Ox 97.7 F 78 18 112/78 93 01/25/21 05:40 01/25/21 05:40 01/25/21 05:40 01/25/21 05:40 01/25/21 05:40 General appearance: Present: no acute distress, mild distress Results - Labs CBC & Chem 7: 01/24/21 07:04 01/25/21 06:51 Labs: Laboratory Last Values WBC 12.6 K/mm3 (4.5-11.0) H 01/24/21 07:04 RBC 4.58 M/mm3 (3.65-5.03) 01/24/21 07:04 Hgb 14.9 gm/dl (11.8-15.2) 01/24/21 07:04 Hct 43.3 % (35.5-45.6) 01/24/21 07:04 MCV 94 fl (84-94) 01/24/21 07:04 MCH 33 pg (28-32) H 01/24/21 07:04 MCHC 35 % (32-34) H 01/24/21 07:04 RDW 13.1 % (13.2-15.2) L 01/24/21 07:04 Plt Count 301 K/mm3 (140-440) 01/24/21 07:04 Lymph % (Auto) 5.7 % (13.4-35.0) L 01/21/21 07:34 Saline % (Auto) 3.5 % (0.0-7.3) 01/21/21 07:34 Eos % (Auto) 0.1 % (0.0-4.3) 01/21/21 07:34 Baso % (Auto) 1.2 % (0.0-1.8) 01/21/21 07:34 Lymph # (Auto) 0.5 K/mm3 (1.2-5.4) L 01/21/21 07:34 Saline # (Auto) 0.3 K/mm3 (0.0-0.8) 01/21/21 07:34 Eos # (Auto) 0.0 K/mm3 (0.0-0.4) 01/21/21 07:34 Baso # (Auto) 0.1 K/mm3 (0.0-0.1) 01/21/21 07:34 Add Manual Diff Complete 01/23/21 05:13 Total Counted 100 01/23/21 05:13 Seg Neutrophils % Installer Soft Top 01/23/21 05:13 Seg Neuts % (Manual) 94.0 % (40.0-70.0) H 01/23/21 05:13 Band Neutrophils % 1.0 % 01/23/21 05:13 Lymphocytes % (Manual) 3.0 % (13.4-35.0) L 01/23/21 05:13 Monocytes % (Manual) 2.0 % (0.0-7.3) 01/23/21 05:13 Nucleated RBC % Not Reportable 01/23/21 05:13 Seg Neutrophils # 7.3 K/mm3 (1.8-7.7) 01/21/21 07:34 Seg Neutrophils # Man 6.3 K/mm3 (1.8-7.7) 01/23/21 05:13 Band Neutrophils # 0.1 K/mm3 01/23/21 05:13 Lymphocytes # (Manual) 0.2 K/mm3 (1.2-5.4) L 01/23/21 05:13 Abs React Lymphs (Man) 0.0 K/mm3 01/23/21 05:13 Monocytes # (Manual) 0.1 K/mm3 (0.0-0.8) 01/23/21 05:13 Eosinophils # (Manual) 0.0 K/mm3 (0.0-0.4) 01/23/21 05:13 Basophils # (Manual) 0.0 K/mm3 (0.0-0.1) 01/23/21 05:13 Metamyelocytes # 0.0 K/mm3 01/23/21 05:13 Myelocytes # 0.0 K/mm3 01/23/21 05:13 Promyelocytes # 0.0 K/mm3 01/23/21 05:13 Blast Cells # 0.0 K/mm3 01/23/21 05:13 WBC Morphology Not Reportable 01/23/21 05:13 Hypersegmented Neuts Not Reportable 01/23/21 05:13 Hyposegmented Neuts Not Reportable 01/23/21 05:13 Hypogranular Neuts Not Reportable 01/23/21 05:13 Smudge Cells Not Reportable 01/23/21 05:13 Toxic Granulation Not Reportable 01/23/21 05:13 Toxic Vacuolation Not Reportable 01/23/21 05:13 Dohle Bodies Not Reportable 01/23/21 05:13 Pelger-Huet Anomaly Not Reportable 01/23/21 05:13 Lito Rods Not Reportable 01/23/21 05:13 Platelet Estimate Consistent w auto 01/23/21 05:13 Clumped Platelets Not Reportable 01/23/21 05:13 Plt Clumps, EDTA Not Reportable 01/23/21 05:13 Large Platelets Not Reportable 01/23/21 05:13 Giant Platelets Not Reportable 01/23/21 05:13 Platelet Satelliting Not Reportable 01/23/21 05:13 Plt Morphology Comment Not Reportable 01/23/21 05:13 RBC Morphology Not Reportable 01/23/21 05:13 Dimorphic RBCs Not Reportable 01/23/21 05:13 Polychromasia Not Reportable 01/23/21 05:13 Hypochromasia Not Reportable 01/23/21 05:13 Poikilocytosis Not Reportable 01/23/21 05:13 Anisocytosis Not Reportable 01/23/21 05:13 Microcytosis Not Reportable 01/23/21 05:13 Macrocytosis Not Reportable 01/23/21 05:13 Spherocytes Not Reportable 01/23/21 05:13 Pappenheimer Bodies Not Reportable 01/23/21 05:13 Sickle Cells Not Reportable 01/23/21 05:13 Target Cells Not Reportable 01/23/21 05:13 Tear Drop Cells Not Reportable 01/23/21 05:13 Ovalocytes Not Reportable 01/23/21 05:13 Helmet Cells Not Reportable 01/23/21 05:13 [employer] Bodies Not Reportable 01/23/21 05:13 [place] Rings Not Reportable 01/23/21 05:13 Junction Cells Not Reportable 01/23/21 05:13 Bite Cells Not Reportable 01/23/21 05:13 Crenated Cell Not Reportable 01/23/21 05:13 Elliptocytes Not Reportable 01/23/21 05:13 Acanthocytes (Spur) Not Reportable 01/23/21 05:13 Rouleaux Not Reportable 01/23/21 05:13 Hemoglobin C Crystals Not Reportable 01/23/21 05:13 Schistocytes Not Reportable 01/23/21 05:13 Malaria parasites Not Reportable 01/23/21 05:13 Matthew Bodies Not Reportable 01/23/21 05:13 Hem Pathologist Commnt No 01/23/21 05:13 PT 20.1 Sec. (12.2-14.9) H 01/22/21 14:52 INR 1.66 (0.87-1.13) H 01/22/21 14:52 APTT 31.8 Sec. (24.2-36.6) 01/22/21 14:52 D-Dimer 364.54 ng/mlDDU (0-234) H 01/21/21 07:34 Sodium 140 mmol/L (137-145) 01/25/21 06:51 Potassium 4.3 mmol/L (3.6-5.0) 01/25/21 06:51 Chloride 106.2 mmol/L (98-107) 01/25/21 06:51 Carbon Dioxide 25 mmol/L (22-30) 01/25/21 06:51 Anion Gap 13 mmol/L 01/25/21 06:51 BUN 23 mg/dL (9-20) H 01/25/21 06:51 Creatinine 0.5 mg/dL (0.8-1.3) L 01/25/21 06:51 Estimated GFR > 60 ml/min 01/25/21 06:51 BUN/Creatinine Ratio 46 % 01/25/21 06:51 Glucose 142 mg/dL (75-100) H 01/25/21 06:51 POC Glucose 191 mg/dL (70-105) H 01/24/21 11:10 Lactic Acid 2.10 mmol/L (0.7-2.0) H* 01/21/21 10:57 Calcium 8.5 mg/dL (8.4-10.2) 01/25/21 06:51 Magnesium 2.20 mg/dL (1.7-2.3) 01/22/21 14:43 Ferritin 1530.0 ng/mL (30.0-300.0) H 01/21/21 07:34 Total Bilirubin 0.40 mg/dL (0.1-1.2) 01/25/21 06:51 AST 38 units/L (5-40) 01/25/21 06:51 ALT 54 units/L (7-56) 01/25/21 06:51 Alkaline Phosphatase 42 units/L (35-129) 01/25/21 06:51 Lactate Dehydrogenase 443 units/L (91-180) H 01/21/21 07:34 C-Reactive Protein 1.50 mg/dL (0.00-1.30) H 01/24/21 19:09 Total Protein 6.0 g/dL (6.3-8.2) L 01/25/21 06:51 Albumin 2.6 g/dL (3.9-5) L 01/25/21 06:51 Albumin/Globulin Ratio 0.8 % 01/25/21 06:51 Procalcitonin 0.12 ng/mL (<0.15) 01/21/21 07:34 TSH 1.080 mlU/mL (0.270-4.200) 01/22/21 14:43 Free T4 1.06 ng/dL (0.76-1.46) 01/22/21 14:43 Coronavirus (PCR) Positive (Negative) A 01/21/21 Unknown Microbiology: Microbiology 01/21/21 07:34 Peripheral/Venous Blood Culture - Preliminary NO GROWTH AFTER 4 DAYS 01/21/21 07:34 Peripheral/Venous Blood Culture - Preliminary NO GROWTH AFTER 4 DAYS Olmedo/IV: Voiding Method Toilet Active Medications - Current Medications Current Medications: Generic Name Dose Route Start Last Admin Trade Name Freq PRN Reason Stop Dose Admin Acetaminophen 650 mg 01/22/21 14:38 01/22/21 23:13 Acetaminophen 325 Mg Tab PO 650 mg Q4H PRN Administration Pain MILD(1-3)/Fever >100.5/MATUTE Albuterol 2.5 mg 01/22/21 14:38 Albuterol 2.5 Mg/3 Ml Nebu IH Q4HRT PRN Shortness Of Breath Apixaban 5 mg 01/22/21 14:41 01/24/21 22:55 Apixaban 5 Mg Tab PO 5 mg Q12HR BUSHRA Administration Protocol Ascorbic Acid 500 mg 01/22/21 22:00 01/24/21 22:55 Ascorbic Acid 500 Mg Tab PO 500 mg BID BUSHRA Administration Cholecalciferol 1,000 unit 01/22/21 16:00 01/24/21 09:02 Cholecalciferol (Vit D3) 1000 Unit (25 Mcg) Tab PO 1,000 unit DAILY BUSHRA Administration Furosemide 40 mg 01/24/21 14:00 01/24/21 14:22 Furosemide 40 Mg/4 Ml Inj IV 01/26/21 10:01 40 mg QDAY BUSHRA Administration Hydromorphone HCl 0.5 mg 01/22/21 14:38 Hydromorphone 1 Mg/1 Ml Inj IV Q24H PRN Pain , Severe (7-10) Methylprednisolone Sodium Succinate 40 mg 01/22/21 22:00 01/25/21 06:06 Methylprednisolone Sod Succinate 40 Mg/1 Ml Inj IV 40 mg Q8HR BUSHRA Administration Ondansetron HCl 4 mg 01/22/21 14:38 Ondansetron 4 Mg/2 Ml Inj IV Q8H PRN Nausea And Vomiting Oxycodone/Acetaminophen 1 tab 01/22/21 14:38 01/24/21 23:02 Oxycodone /Acetaminophen 5-325mg Tab PO 1 tab Q12H PRN Administration Pain, Moderate (4-6) Sodium Chloride 10 ml 01/22/21 22:00 01/24/21 22:56 Sodium Chloride 0.9% 10 Ml Flush Syringe IV 10 ml BID BUSHRA Administration Sodium Chloride 10 ml 01/22/21 14:38 01/23/21 05:42 Sodium Chloride 0.9% 10 Ml Flush Syringe IV 10 ml PRN PRN Administration LINE FLUSH Zinc Sulfate 220 mg 01/22/21 22:00 01/24/21 22:55 Zinc Sulfate 220 Mg Cap PO 220 mg BID BUSHRA Administration
[2021-01-25] MEDS: carvediloL 6.25 MG TAB PO SCH (10:00)
[2021-01-25] MEDS: ZINC SULFATE 220 MG CAP PO SCH ×2 (10:51→22:32)
[2021-01-25] MEDS: ASCORBIC ACID 500 MG TAB PO SCH ×2 (10:51→22:32)
[2021-01-25] MEDS: APIXABAN 5 MG TAB PO SCH ×2 (10:51→22:32)
[2021-01-25] MEDS: CHOLECALCIFEROL (VIT D3) 1000 UNIT (25 mcg) TAB PO SCH (10:51)
[2021-01-25] MEDS: FUROSEMIDE 40 MG/4 ML INJ IV SCH (10:51)
--- NOTE | 2021-01-25 11:01 | Consultation ---
History of Present Illness Consult date: 01/25/21 Consult reason: atrial fibrillation History of present illness: The patient is a 56-year-old man admitted to the hospital several days ago with shortness of breath, hypoxemia, and a positive Covid test. Chest x-ray shows bilateral infiltrates consistent with acute Covid viral pneumonia. He is currently admitted to the medical floor, and today he appears quite lethargic, but no acute respiratory distress. Cardiology consultation was requested for management of atrial fibrillation. On his presentation, he had atrial fibrillation with a ventricular rate in the 110s to 120s. The chronicity of his atrial fibrillation is uncertain. The patient is a very poor historian, and states that he is not followed by a primary care d octor or a property and casualty insurance agent in the outpatient setting. He apparently is on no medications for atrial fib rate control or anticoagulation. Additional findings on this presentation on the echocardiogram done 2 days ago, as reviewed by me, show a four-chamber dilated cardiomyopathy with biventricular dysfunction. The left ventricular ejection fraction is estimated at 30%. Again, the chronicity of his four-chamber cardiomyopathy is uncertain due to the patient's inability to provide a succint distillation of his medical history and previous cardiac work-up if any. Past History Past Medical History: other (See HPI) Past Surgical History: appendectomy Social history: . denies: smoking, alcohol abuse, prescription drug abuse Family history: no significant family history, other (Reviewed) Medications and Allergies Allergies Allergy/AdvReac Type Severity Reaction Status Date / Time No Known Allergies Allergy Verified 05/16/17 02:50 Home Medications Medication Instructions Recorded Confirmed Last Taken Type HYDROcodone/APAP 5-325 [Edson 1 each PO Q6HR PRN #15 tablet 07/14/14 01/24/21 Unknown Rx 5-325 mg TAB] Tizanidine HCl [Zanaflex] 4 mg PO PRN PRN 07/14/14 01/24/21 07/14/14 History methOCARBAMOL [Robaxin TAB] 500 mg PO Q6H #30 tablet 07/14/14 01/24/21 Unknown Rx Silver Sulfadiazine [Silvadene] 1 applic TP BID 14 Days #1 08/03/20 01/24/21 01/16/21 09:00 Rx cream..g. Cyclobenzaprine [Flexeril 10 MG 10 mg PO TID PRN #20 tablet 09/23/20 01/24/21 01/15/21 21:00 Rx TAB] Ascorbic Acid [Vitamin C] 1,000 mg PO BID #60 tablet 01/18/21 01/24/21 Unknown Rx Cholecalciferol (Vitamin D3) 5,000 unit PO DAILY #30 tablet 01/18/21 01/24/21 Unknown Rx [Vitamin D3] Famotidine [Pepcid] 10 mg PO BID #30 tablet 01/18/21 01/24/21 Unknown Rx Zinc Sulfate 220 mg PO BID #60 capsule 01/18/21 01/24/21 Unknown Rx dexAMETHasone [Dexamethasone] 6 mg PO DAILY #9 tablet 01/18/21 01/24/21 Unknown Rx Ascorbic Acid [Vitamin C] 1,000 mg PO DAILY #14 tablet 01/21/21 Unknown Rx Azithromycin [Zithromax Z-ENID] 250 mg PO DAILY #6 tablet 01/21/21 Unknown Rx Cholecalciferol Vit D3 [Vitamin D3 1,000 unit PO QDAY #14 tablet 01/21/21 Unknown Rx 1,000 UNIT TAB] Prednisone [predniSONE 10 mg 10 mg PO .TAPER #1 tab.ds.pk 01/21/21 Unknown Rx (6-Day Pack, 21 Tabs)] Active Meds: Active Medications Acetaminophen (Acetaminophen 325 Mg Tab) 650 mg PO Q4H PRN PRN Reason: Pain MILD(1-3)/Fever >100.5/MATUTE Last Admin: 01/22/21 23:13 Dose: 650 mg Documented by: Albuterol (Albuterol 2.5 Mg/3 Ml Nebu) 2.5 mg IH Q4HRT PRN PRN Reason: Shortness Of Breath Apixaban (Apixaban 5 Mg Tab) 5 mg PO Q12HR BUSHRA; Protocol Last Admin: 01/25/21 10:51 Dose: 5 mg Documented by: Ascorbic Acid (Ascorbic Acid 500 Mg Tab) 500 mg PO BID BUSHRA Last Admin: 01/25/21 10:51 Dose: 500 mg Documented by: Cholecalciferol (Cholecalciferol (Vit D3) 1000 Unit (25 Mcg) Tab) 1,000 unit PO DAILY UBSHRA Last Admin: 01/25/21 10:51 Dose: 1,000 unit Documented by: Furosemide (Furosemide 40 Mg/4 Ml Inj) 40 mg IV QDAY BUSHRA Stop: 01/26/21 10:01 Last Admin: 01/25/21 10:51 Dose: 40 mg Documented by: Hydromorphone HCl (Hydromorphone 1 Mg/1 Ml Inj) 0.5 mg IV Q24H PRN PRN Reason: Pain , Severe (7-10) Methylprednisolone Sodium Succinate (Methylprednisolone Sod Succinate 40 Mg/1 Ml Inj) 40 mg IV Q8HR [facility] Last Admin: 01/25/21 06:06 Dose: 40 mg Documented by: Ondansetron HCl (Ondansetron 4 Mg/2 Ml Inj) 4 mg IV Q8H PRN PRN Reason: Nausea And Vomiting Oxycodone/Acetaminophen (Oxycodone /Acetaminophen 5-325mg Tab) 1 tab PO Q12H PRN PRN Reason: Pain, Moderate (4-6) Last Admin: 01/24/21 23:02 Dose: 1 tab Documented by: Sodium Chloride (Sodium Chloride 0.9% 10 Ml Flush Syringe) 10 ml IV BID [facility] Last Admin: 01/25/21 10:52 Dose: 10 ml Documented by: Sodium Chloride (Sodium Chloride 0.9% 10 Ml Flush Syringe) 10 ml IV PRN PRN PRN Reason: LINE FLUSH Last Admin: 01/23/21 05:42 Dose: 10 ml Documented by: Zinc Sulfate (Zinc Sulfate 220 Mg Cap) 220 mg PO BID [facility] Last Admin: 01/25/21 10:51 Dose: 220 mg Documented by: Review of Systems Cardiovascular: palpitations, rapid/irregular heart beat, shortness of breath, no chest pain, no orthopnea, no edema, no syncope, no lightheadedness Physical Examination Vital Signs Resp 30 H 01/21/21 06:48 Narrative exam: Full physical exam is deferred due to acute COVID-19 infection. General appearance: no acute distress, other (Patient appears very lethargic) Results 01/24/21 07:04 01/25/21 06:51 Cardiac Enzymes 01/25/21 Range/Units 06:51 AST 38 (5-40) units/L Comprehensive Metabolic Panel 01/25/21 Range/Units 06:51 Sodium 140 (137-145) mmol/L Potassium 4.3 (3.6-5.0) mmol/L Chloride 106.2 (98-107) mmol/L Carbon Dioxide 25 (22-30) mmol/L BUN 23 H (9-20) mg/dL Creatinine 0.5 L (0.8-1.3) mg/dL Glucose 142 H (75-100) mg/dL Calcium 8.5 (8.4-10.2) mg/dL AST 38 (5-40) units/L ALT 54 (7-56) units/L Alkaline Phosphatase 42 (35-129) units/L Total Protein 6.0 L (6.3-8.2) g/dL Albumin 2.6 L (3.9-5) g/dL EKG interpretations - Telemetry EKG Rhythm: Atrial Fibrillation Assessment and Plan - Patient Problems (1) Atrial fibrillation Current Visit: Yes Status: Acute Plan to address problem: Patient presented with acute bilateral Covid pneumonia, found with atrial fibrillation of uncertain chronicity. We will recommend a rate control strategy of atrial fibrillation management, and add long-term oral anticoagulation for stroke prophylaxis. (2) Dilated cardiomyopathy Current Visit: Yes Status: Acute Plan to address problem: The patient's echocardiogram on this presentation shows a four-chamber cardiomyopathy with left ventricular ejection fraction less than 30%. We will institute guideline directed medical therapy for management of chronic systolic left ventricular failure. We will also make attempts to obtain any prior medical records for further review of any previous cardiac evaluation.
[2021-01-25] MEDS: LISINOPRIL 5 MG TAB PO SCH (12:45)
[2021-01-25] MEDS: SPIRONOLACTONE 25 MG TAB PO SCH (12:46)
--- NOTE | 2021-01-25 15:47 | Progress Note ---
Assessment and Plan Cultures: Blood culture no growth today SARS CoV2 PCR positive Assessment: 56-year-old male with history of kidney stones, initially admitted on 01/16/2021 and discharged on 01/18/2021 to 2-week history of cough, ear pain, chills, fever, diarrhea and progressive shortness of breath. Patient was found to have COVID-19 pneumonia mildly elevated markers, sats down to 90%, patient was placed on 2 L. Patient was not a candidate for remdesivir or Tocilizumab, readmitted on 01/21/2021 secondary to shortness of breath, fatigue, weakness sin ce discharge: #Severe COVID pneumonia: CXR with bilateral pneumonia. Infllammatory markers elevated CRP 8. CTA shows no PE, bilateral airspace disease. #Acute hypoxemic respiratory failure: Improving, now on 5 liters. #RVR Afib: due to COVID Recommendations: -Steroids for 10 days -No candidate for remdesivir symptoms for more than 2 weeks -No candidate for tocilizumab -Monitor inflammatory markers - ferritin, Ddimer, CRP, LDH -Continue anticoagulation per System Protocol -Prone positioning as possible -Evaluation for home O2. Will sign off please call us if any question Bridget Voss MD Infectious Diseases Manager Decision Support [facility] M [phone] O [phone] Subjective Date of service: 01/25/21 Principal diagnosis: COVID-19 Interval history: Patient is now on 5 L, O2 sat over 92%. No fever. Objective - Exam Narrative Exam: Physical exam deferred to minimize COVID-19 transmission during pandemic. - Constitutional Vitals: Vital Signs Temp Pulse Resp BP Pulse Ox 98.0 F 106 H 18 130/70 95 01/25/21 11:27 01/25/21 11:27 01/25/21 11:27 01/25/21 12:46 01/25/21 11:27 Temperature -Last 24 Hours Temperature 98.0 F Temperature 97.7 F Temperature 98.3 F Temperature 98.0 F - Labs CBC & Chem 7: 01/24/21 07:04 01/25/21 06:51 Labs: Abnormal lab results 01/24/21 01/25/21 Range/Units 19:09 06:51 BUN 23 H (9-20) mg/dL Creatinine 0.5 L (0.8-1.3) mg/dL Glucose 142 H (75-100) mg/dL C-Reactive Protein 1.50 H (0.00-1.30) mg/dL Total Protein 6.0 L (6.3-8.2) g/dL Albumin 2.6 L (3.9-5) g/dL
[2021-01-25] MEDS ORDERED: REMDESIVIR 100 MG in SODIUM CHLORIDE 0.9% 250ML 250 ML IV SCH (21:00)
[2021-01-26] MEDS: carvediloL 6.25 MG TAB PO SCH ×3 (03:03→22:00)
[2021-01-26] MEDS: methylPREDNISolone Sod Succinate 40 MG/1 ML INJ IV SCH ×3 (05:48→22:00)
[2021-01-26 08:22] LABS: Hematocrit 42.3 % (35.5-45.6); Hemoglobin 14.4 gm/dl (11.8-15.2); Mean Corpuscular HGB Conc 34 % (32-34); Mean Corpuscular Volume 95 fl (84-94); Platelet Count 310 K/mm3 (140-440); Red Blood Count 4.48 M/mm3 (3.65-5.03); Red Cell Distribution Width 13.3 % (13.2-15.2)
[2021-01-26 08:28] LABS: Alanine Aminotransferase 59 units/L (7-56); Albumin 2.5 g/dL (3.9-5); Blood Urea Nitrogen 22 mg/dL (9-20); Calcium 8.5 mg/dL (8.4-10.2); Hemolysis Index 8
[2021-01-26 08:38] LABS: BUN/Creatinine Ratio 37
--- NOTE | 2021-01-26 08:51 | Progress Note ---
Assessment and Plan Atrial fibrillation, uncertain chronicity initiated on Eliquis Dilated cardiomyopathy, uncertain duration LVEF estimated at 30% COVID pneumonia Continue rate controlling agents and anticoagulation for atrial fibrillation. Continue medical therapy for dilated cardiomyopathy as tolerated. Subjective Date of service: 01/26/21 Principal diagnosis: COVID-19 Interval history: No distress noted. Atrial fibrillation with a well controlled ventricular rate on telemetry. Objective Vital Signs Temp Pulse Resp BP Pulse Ox 01/26/21 04:52 97.8 F 80 18 111/76 92 01/26/21 03:03 62 101/71 01/25/21 22:51 74 101/71 90 01/25/21 20:54 97.7 F 100 H 18 105/70 95 01/25/21 20:32 94 01/25/21 15:53 97.2 F L 96 H 18 111/74 96 01/25/21 12:46 130/70 01/25/21 11:27 98.0 F 106 H 18 112/80 95 01/25/21 10:00 95 - Physical Examination Narrative exam: Deferred due to isolation protocol. Cardiac: Positive: irregularly irregular - Labs and Meds Cardiac Enzymes 01/26/21 Range/Units 07:19 AST 27 (5-40) units/L CBC 01/26/21 Range/Units 07:19 WBC 14.6 H (4.5-11.0) K/mm3 RBC 4.48 (3.65-5.03) M/mm3 Hgb 14.4 (11.8-15.2) gm/dl Hct 42.3 (35.5-45.6) % Plt Count 310 (140-440) K/mm3 Comprehensive Metabolic Panel 01/26/21 Range/Units 07:19 Sodium 139 (137-145) mmol/L Potassium 4.2 (3.6-5.0) mmol/L Chloride 103.9 (98-107) mmol/L Carbon Dioxide 26 (22-30) mmol/L BUN 22 H (9-20) mg/dL Creatinine 0.6 L (0.8-1.3) mg/dL Glucose 147 H (75-100) mg/dL Calcium 8.5 (8.4-10.2) mg/dL AST 27 (5-40) units/L ALT 59 H (7-56) units/L Alkaline Phosphatase 49 (35-129) units/L Total Protein 5.8 L (6.3-8.2) g/dL Albumin 2.5 L (3.9-5) g/dL
--- NOTE | 2021-01-26 09:00 | Progress Note ---
Assessment and Plan Assessment and plan: 56 YO Male with coronavirus infection, Medication Noncompliance presents to ED for evaluation. Pt discharged from [facility] 4 days ago s/p inpatient care. Patient states that he has experienced shortness of breath, fatigue, malaise, generalized weakness over the past 2 weeks with persistent symptoms since his departure from the hospital 4 days ago. EMS was notified and upon arrival the patient was found to be in distress and subsequent transported to [facility] for further care and evaluation of the aforementioned symptoms. The patient was seen and evaluated in the emergency department. All lab and imaging studies reviewed. Patient found to have a pulse oximetry of 79% on room and was initiated on treatment with submental oxygen with improvement in symptoms. While awaiting discharge with home oxygen the patient was found to have new onset atrial fibrillation on EKG. Chest x-ray revealed bilateral pneumonia. Patient found to have acute hypoxemic respiratory failure and was subsequently initiated on supplemental oxygen via nonrebreather mask. Patient admitted to telemetry and treated with medical cardioversion with Cardizem and therapeutic anticoagulation with Eliquis. Patient denies fever, chills, chest pain, palpitation, skin rash, recent ill contacts. Patient has not received his COVI D-19 vaccination. Prior admission on 01/17/2021 reviewed. All medication listed at time of admission has been reconciled. Advanced care planning conducted in ED. 01/23/21 patient is seen and examined. Patient is little bit sleepy. Denied any shortness of breath. Less coughing. No new complain. O2 sat 97% on 2 to 3 L of oxygen. Continue current management and therapeutic anticoagulation with Eliquis. Continue antibiotic, vitamin C Alexa and vitamin D and Solu-Medrol. Wean oxygen. Possible discharge in 1 to 2 days. 01/24/21: Patient seen and on 5 liters of oxygen, will obtain ID consult for possible Remdesivir, Consult Cardiology for the noted A Fib. Encourage Pronining 01/25/21: Cardiology evaluated patient for atrial fibrillation and cardiomyopathy. Recommend A/c and rate control strategy. Will request records regarding cardiomyopathy with EF 30%. Optimize heart failure therapy. Will attempt to de-escalate O2 as patient tolerates. Not a candidate for remdesivir due to symptom onset and actemra at this time. May consider if patient worsens. Continue to encourage proning. 01/26/2021: Attempting to de-escalate oxygen. Patient states he is feeling well. Will need home O2 evaluation. CM consulted for home O2. (1) Acute hypoxemic respiratory failure Current Visit: Yes Status: Acute Plan to address problem: Chest x-ray, supplemental oxygen, pulse oximetry, nebulizer therapy, pulmonary toilet. (2) Bilateral pneumonia Current Visit: Yes Status: Acute Plan to address problem: Pneumonia protocol: Chest x-ray, CBC, CMP, IV antibiotic therapy, supplemental oxygen, pulse oximetry, nebulizer therapy, blood culture. (3) COVID-19 Current Visit: Yes Status: Acute Plan to address problem: Coronavirus protocol: Contact precaution, isolation precautions, IV antibiotic therapy, IV steroid therapy, supplemental oxygen, pulse oximetry, vitamin D therapy, vitamin D therapy, zinc therapy, therapeutic anticoagulation with Eliquis. (4) New onset atrial fibrillation Current Visit: Yes Status: Acute Plan to address problem: Chronicity unclear, therapeutic anticoagulation with Eliquis, rate control with Cardizem on presentation Currently rate controlled Therapy per cardiology team (5) Dilated Cardiomyopathy Current Visit: Yes Status: Acute Plan to address problem: Chronicity unclear ECHO: EF 30%, four-chamber dilation Records request GDMT: Lasix, Coreg, spironolactone, Zestril (5) DVT prophylaxis Current Visit: Yes Status: Acute Plan to address problem: SCD to bilateral lower extremities while in bed, therapeutic anticoagulation (6) Advance care planning Current Visit: Yes Status: Acute Plan to address problem: Disease education conducted, care plan discussed, diagnosis discussed, prognosis discussed, patient is full code, patient knowledges understanding agree with care plan, case management consulted for assistance with discharge planning. History Interval history: No acute complaints today. Patient states that he is feeling much better. Has improved on bronchodilator therapy and after initiation of GDMT for heart failure. Hospitalist Physical - Physical exam Narrative exam: General appearance: Present: no acute distress, mild distress - EENT Eyes: Present: PERRL, EOM intact ENT: hearing intact, clear oral mucosa, dentition normal - Neck Neck: Present: supple, normal ROM - Respiratory Respiratory effort: normal Respiratory: bilateral: diminished, crackles - Cardiovascular Rhythm: regular Heart Sounds: Present: S1 & S2 - Extremities Extremities: no ischemia, pulses intact, No edema Peripheral Pulses: within normal limits - Abdominal General gastrointestinal: soft, non-tender, non-distended, normal bowel sounds - Integumentary Integumentary: Present: clear, warm, dry - Psychiatric Psychiatric: appropriate mood/affect, intact judgment & insight - Neurologic Neurologic: CNII-XII intact, moves all extremities - Allied Health Allied health notes reviewed: nursing - Constitutional Vitals: Temp Pulse Resp BP Pulse Ox 97.8 F 80 18 111/76 92 01/26/21 04:52 01/26/21 04:52 01/26/21 04:52 01/26/21 04:52 01/26/21 04:52 General appearance: Present: no acute distress, mild distress Results - Labs CBC & Chem 7: 01/26/21 07:19 01/26/21 07:19 Labs: Laboratory Last Values WBC 14.6 K/mm3 (4.5-11.0) H 01/26/21 07:19 RBC 4.48 M/mm3 (3.65-5.03) 01/26/21 07:19 Hgb 14.4 gm/dl (11.8-15.2) 01/26/21 07:19 Hct 42.3 % (35.5-45.6) 01/26/21 07:19 MCV 95 fl (84-94) H 01/26/21 07:19 MCH 32 pg (28-32) 01/26/21 07:19 MCHC 34 % (32-34) 01/26/21 07:19 RDW 13.3 % (13.2-15.2) 01/26/21 07:19 Plt Count 310 K/mm3 (140-440) 01/26/21 07:19 Lymph % (Auto) 5.7 % (13.4-35.0) L 01/21/21 07:34 [place] % (Auto) 3.5 % (0.0-7.3) 01/21/21 07:34 Eos % (Auto) 0.1 % (0.0-4.3) 01/21/21 07:34 Baso % (Auto) 1.2 % (0.0-1.8) 01/21/21 07:34 Lymph # (Auto) 0.5 K/mm3 (1.2-5.4) L 01/21/21 07:34 [place] # (Auto) 0.3 K/mm3 (0.0-0.8) 01/21/21 07:34 Eos # (Auto) 0.0 K/mm3 (0.0-0.4) 01/21/21 07:34 Baso # (Auto) 0.1 K/mm3 (0.0-0.1) 01/21/21 07:34 Add Manual Diff Complete 01/23/21 05:13 Total Counted 100 01/23/21 05:13 Seg Neutrophils % Tape Duplicator 01/23/21 05:13 Seg Neuts % (Manual) 94.0 % (40.0-70.0) H 01/23/21 05:13 Band Neutrophils % 1.0 % 01/23/21 05:13 Lymphocytes % (Manual) 3.0 % (13.4-35.0) L 01/23/21 05:13 Monocytes % (Manual) 2.0 % (0.0-7.3) 01/23/21 05:13 Nucleated RBC % Not Reportable 01/23/21 05:13 Seg Neutrophils # 7.3 K/mm3 (1.8-7.7) 01/21/21 07:34 Seg Neutrophils # Man 6.3 K/mm3 (1.8-7.7) 01/23/21 05:13 Band Neutrophils # 0.1 K/mm3 01/23/21 05:13 Lymphocytes # (Manual) 0.2 K/mm3 (1.2-5.4) L 01/23/21 05:13 Abs React Lymphs (Man) 0.0 K/mm3 01/23/21 05:13 Monocytes # (Manual) 0.1 K/mm3 (0.0-0.8) 01/23/21 05:13 Eosinophils # (Manual) 0.0 K/mm3 (0.0-0.4) 01/23/21 05:13 Basophils # (Manual) 0.0 K/mm3 (0.0-0.1) 01/23/21 05:13 Metamyelocytes # 0.0 K/mm3 01/23/21 05:13 Myelocytes # 0.0 K/mm3 01/23/21 05:13 Promyelocytes # 0.0 K/mm3 01/23/21 05:13 Blast Cells # 0.0 K/mm3 01/23/21 05:13 WBC Morphology Not Reportable 01/23/21 05:13 Hypersegmented Neuts Not Reportable 01/23/21 05:13 Hyposegmented Neuts Not Reportable 01/23/21 05:13 Hypogranular Neuts Not Reportable 01/23/21 05:13 Smudge Cells Not Reportable 01/23/21 05:13 Toxic Granulation Not Reportable 01/23/21 05:13 Toxic Vacuolation Not Reportable 01/23/21 05:13 Dohle Bodies Not Reportable 01/23/21 05:13 Pelger-Huet Anomaly Not Reportable 01/23/21 05:13 Lito Rods Not Reportable 01/23/21 05:13 Platelet Estimate Consistent w auto 01/23/21 05:13 Clumped Platelets Not Reportable 01/23/21 05:13 Plt Clumps, EDTA Not Reportable 01/23/21 05:13 Large Platelets Not Reportable 01/23/21 05:13 Giant Platelets Not Reportable 01/23/21 05:13 Platelet Satelliting Not Reportable 01/23/21 05:13 Plt Morphology Comment Not Reportable 01/23/21 05:13 RBC Morphology Not Reportable 01/23/21 05:13 Dimorphic RBCs Not Reportable 01/23/21 05:13 Polychromasia Not Reportable 01/23/21 05:13 Hypochromasia Not Reportable 01/23/21 05:13 Poikilocytosis Not Reportable 01/23/21 05:13 Anisocytosis Not Reportable 01/23/21 05:13 Microcytosis Not Reportable 01/23/21 05:13 Macrocytosis Not Reportable 01/23/21 05:13 Spherocytes Not Reportable 01/23/21 05:13 Pappenheimer Bodies Not Reportable 01/23/21 05:13 Sickle Cells Not Reportable 01/23/21 05:13 Target Cells Not Reportable 01/23/21 05:13 Tear Drop Cells Not Reportable 01/23/21 05:13 Ovalocytes Not Reportable 01/23/21 05:13 Helmet Cells Not Reportable 01/23/21 05:13 Hall-Dazey Bodies Not Reportable 01/23/21 05:13 [place] Rings Not Reportable 01/23/21 05:13 Camila Cells Not Reportable 01/23/21 05:13 Bite Cells Not Reportable 01/23/21 05:13 Crenated Cell Not Reportable 01/23/21 05:13 Elliptocytes Not Reportable 01/23/21 05:13 Acanthocytes (Spur) Not Reportable 01/23/21 05:13 Rouleaux Not Reportable 01/23/21 05:13 Hemoglobin C Crystals Not Reportable 01/23/21 05:13 Schistocytes Not Reportable 01/23/21 05:13 Malaria parasites Not Reportable 01/23/21 05:13 Matthew Bodies Not Reportable 01/23/21 05:13 Hem Pathologist Commnt No 01/23/21 05:13 PT 20.1 Sec. (12.2-14.9) H 01/22/21 14:52 INR 1.66 (0.87-1.13) H 01/22/21 14:52 APTT 31.8 Sec. (24.2-36.6) 01/22/21 14:52 D-Dimer 364.54 ng/mlDDU (0-234) H 01/21/21 07:34 Sodium 139 mmol/L (137-145) 01/26/21 07:19 Potassium 4.2 mmol/L (3.6-5.0) 01/26/21 07:19 Chloride 103.9 mmol/L (98-107) 01/26/21 07:19 Carbon Dioxide 26 mmol/L (22-30) 01/26/21 07:19 Anion Gap 13 mmol/L 01/26/21 07:19 BUN 22 mg/dL (9-20) H 01/26/21 07:19 Creatinine 0.6 mg/dL (0.8-1.3) L 01/26/21 07:19 Estimated GFR > 60 ml/min 01/26/21 07:19 BUN/Creatinine Ratio 37 % 01/26/21 07:19 Glucose 147 mg/dL (75-100) H 01/26/21 07:19 POC Glucose 191 mg/dL (70-105) H 01/24/21 11:10 Lactic Acid 2.10 mmol/L (0.7-2.0) H* 01/21/21 10:57 Calcium 8.5 mg/dL (8.4-10.2) 01/26/21 07:19 Magnesium 2.20 mg/dL (1.7-2.3) 01/22/21 14:43 Ferritin 1530.0 ng/mL (30.0-300.0) H 01/21/21 07:34 Total Bilirubin 0.50 mg/dL (0.1-1.2) 01/26/21 07:19 AST 27 units/L (5-40) 01/26/21 07:19 ALT 59 units/L (7-56) H 01/26/21 07:19 Alkaline Phosphatase 49 units/L (35-129) 01/26/21 07:19 Lactate Dehydrogenase 443 units/L (91-180) H 01/21/21 07:34 C-Reactive Protein 1.50 mg/dL (0.00-1.30) H 01/24/21 19:09 Total Protein 5.8 g/dL (6.3-8.2) L 01/26/21 07:19 Albumin 2.5 g/dL (3.9-5) L 01/26/21 07:19 Albumin/Globulin Ratio 0.8 % 01/26/21 07:19 Procalcitonin < 0.05 ng/mL (<0.15) 01/24/21 19:09 TSH 1.080 mlU/mL (0.270-4.200) 01/22/21 14:43 Free T4 1.06 ng/dL (0.76-1.46) 01/22/21 14:43 Coronavirus (PCR) Positive (Negative) A 01/21/21 Unknown Microbiology: Microbiology 01/21/21 07:34 Peripheral/Venous Blood Culture - Final NO GROWTH AFTER 5 DAYS 01/21/21 07:34 Peripheral/Venous Blood Culture - Final NO GROWTH AFTER 5 DAYS Olmedo/IV: Voiding Method Urinal Active Medications - Current Medications Current Medications: Generic Name Dose Route Start Last Admin Trade Name Freq PRN Reason Stop Dose Admin Acetaminophen 650 mg 01/22/21 14:38 01/22/21 23:13 Acetaminophen 325 Mg Tab PO 650 mg Q4H PRN Administration Pain MILD(1-3)/Fever >100.5/MATUTE Albuterol 2.5 mg 01/22/21 14:38 Albuterol 2.5 Mg/3 Ml Nebu IH Q4HRT PRN Shortness Of Breath Apixaban 5 mg 01/22/21 14:41 01/25/21 22:32 Apixaban 5 Mg Tab PO 5 mg Q12HR BUSHRA Administration Protocol Ascorbic Acid 500 mg 01/22/21 22:00 01/25/21 22:32 Ascorbic Acid 500 Mg Tab PO 500 mg BID BUSHRA Administration Carvedilol 6.25 mg 01/25/21 12:00 01/26/21 03:03 Carvedilol 6.25 Mg Tab PO Not Given BID BUSHRA Cholecalciferol 1,000 unit 01/22/21 16:00 01/25/21 10:51 Cholecalciferol (Vit D3) 1000 Unit (25 Mcg) Tab PO 1,000 unit DAILY BUSHRA Administration Furosemide 40 mg 01/24/21 14:00 01/25/21 10:51 Furosemide 40 Mg/4 Ml Inj IV 01/26/21 10:01 40 mg QDAY BUSHRA Administration Hydromorphone HCl 0.5 mg 01/22/21 14:38 Hydromorphone 1 Mg/1 Ml Inj IV Q24H PRN Pain , Severe (7-10) Lisinopril 2.5 mg 01/25/21 12:00 01/25/21 12:45 Lisinopril 5 Mg Tab PO 2.5 mg QDAY BUSHRA Administration Methylprednisolone Sodium Succinate 40 mg 01/22/21 22:00 01/26/21 05:48 Methylprednisolone Sod Succinate 40 Mg/1 Ml Inj IV 40 mg Q8HR BUSHRA Administration Ondansetron HCl 4 mg 01/22/21 14:38 Ondansetron 4 Mg/2 Ml Inj IV Q8H PRN Nausea And Vomiting Oxycodone/Acetaminophen 1 tab 01/22/21 14:38 01/24/21 23:02 Oxycodone /Acetaminophen 5-325mg Tab PO 1 tab Q12H PRN Administration Pain, Moderate (4-6) Sodium Chloride 10 ml 01/22/21 22:00 01/25/21 22:33 Sodium Chloride 0.9% 10 Ml Flush Syringe IV 10 ml BID BUSHRA Administration Sodium Chloride 10 ml 01/22/21 14:38 01/23/21 05:42 Sodium Chloride 0.9% 10 Ml Flush Syringe IV 10 ml PRN PRN Administration LINE FLUSH Spironolactone 25 mg 01/25/21 12:00 01/25/21 12:46 Spironolactone 25 Mg Tab PO 25 mg QDAY BUSHRA Administration Zinc Sulfate 220 mg 01/22/21 22:00 01/25/21 22:32 Zinc Sulfate 220 Mg Cap PO 220 mg BID BUSHRA Administration
[2021-01-26] MEDS: SPIRONOLACTONE 25 MG TAB PO SCH (11:46)
[2021-01-26] MEDS: ZINC SULFATE 220 MG CAP PO SCH ×2 (11:46→22:00)
[2021-01-26] MEDS: APIXABAN 5 MG TAB PO SCH ×2 (11:47→22:00)
[2021-01-26] MEDS: FUROSEMIDE 40 MG/4 ML INJ IV SCH (11:47)
[2021-01-26] MEDS: CHOLECALCIFEROL (VIT D3) 1000 UNIT (25 mcg) TAB PO SCH (11:47)
[2021-01-26] MEDS: ASCORBIC ACID 500 MG TAB PO SCH ×2 (11:47→22:00)
[2021-01-26] MEDS: LISINOPRIL 5 MG TAB PO SCH (11:53)
[2021-01-26] MEDS: FUROSEMIDE 20 MG TAB PO SCH (17:21)
[2021-01-27] MEDS: methylPREDNISolone Sod Succinate 40 MG/1 ML INJ IV SCH (05:49)
[2021-01-27 09:54] LABS: Alanine Aminotransferase 71 units/L (7-56); Albumin 2.6 g/dL (3.9-5); Blood Urea Nitrogen 23 mg/dL (9-20); Calcium 8.5 mg/dL (8.4-10.2); Hemolysis Index 7
[2021-01-27 09:55] LABS: BUN/Creatinine Ratio 33
[2021-01-27] MEDS: LISINOPRIL 5 MG TAB PO SCH (10:46)
[2021-01-27] MEDS: ASCORBIC ACID 500 MG TAB PO SCH ×2 (10:47→22:04)
[2021-01-27] MEDS: SPIRONOLACTONE 25 MG TAB PO SCH (10:47)
[2021-01-27] MEDS: carvediloL 6.25 MG TAB PO SCH ×2 (10:47→22:05)
[2021-01-27] MEDS: ZINC SULFATE 220 MG CAP PO SCH ×2 (10:47→22:04)
[2021-01-27] MEDS: CHOLECALCIFEROL (VIT D3) 1000 UNIT (25 mcg) TAB PO SCH (10:48)
[2021-01-27] MEDS: FUROSEMIDE 20 MG TAB PO SCH (10:48)
[2021-01-27] MEDS: APIXABAN 5 MG TAB PO SCH ×2 (10:48→22:04)
--- NOTE | 2021-01-27 10:55 | Progress Note ---
Assessment and Plan - Patient Problems (1) Atrial fibrillation Current Visit: Yes Status: Acute Plan to address problem: Patient presented with acute bilateral Covid pneumonia, incidental finding on presentation of atrial fibrillation of uncertain chronicity. We have placed him on a rate control strategy and chronic oral anticoagulation, recommend outpatient cardiology follow-up. (2) Dilated cardiomyopathy Current Visit: Yes Status: Acute Plan to address problem: The patient's echocardiogram on this presentation shows a four-chamber cardiomyopathy with left ventricular ejection fraction less than 30%. Just like his atrial fibrillation, the four-chamber cardiomyopathy is an incidental finding on this presentation, also of uncertain chronicity. We recommend guideline directed medical therapy for management of chronic systolic left ventricular failure. Outpatient cardiac follow-up is strongly recommended, with further ischemic evaluation and future device therapies as indicated after his recovery from his Covid infection. Subjective Date of service: 01/27/21 Principal diagnosis: COVID-19 Interval history: The patient looks and feels better, anticipates going home today. No new cardiac complaints. 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 Objective Vital Signs Temp Pulse Pulse Resp BP Pulse Ox 01/27/21 04:15 97.7 F 106 H 18 115/83 89 01/26/21 22:02 97.8 F 117 H 18 103/61 91 01/26/21 22:00 117 H 94 H 103/61 93 01/26/21 21:34 97 01/26/21 16:11 118 H 91 01/26/21 16:10 105 H 91 01/26/21 11:53 62 102/68 91 01/26/21 11:52 54 L 91 - Physical Examination Narrative exam: Full physical exam is deferred due to acute COVID-19 infection. General: No Apparent Distress - Labs and Meds Cardiac Enzymes 01/27/21 Range/Units 09:05 AST 30 (5-40) units/L Comprehensive Metabolic Panel 01/27/21 Range/Units 09:05 Sodium 141 (137-145) mmol/L Potassium 4.8 (3.6-5.0) mmol/L Chloride 104.8 (98-107) mmol/L Carbon Dioxide 28 (22-30) mmol/L BUN 23 H (9-20) mg/dL Creatinine 0.7 L (0.8-1.3) mg/dL Glucose 174 H (75-100) mg/dL Calcium 8.5 (8.4-10.2) mg/dL AST 30 (5-40) units/L ALT 71 H (7-56) units/L Alkaline Phosphatase 50 (35-129) units/L Total Protein 5.9 L (6.3-8.2) g/dL Albumin 2.6 L (3.9-5) g/dL
[2021-01-27] MEDS ORDERED: BUDESONIDE 0.5 MG/2 ML NEBU IH SCH (12:15)
--- NOTE | 2021-01-27 12:46 | Progress Note ---
Assessment and Plan Assessment and plan: 56 YO Male with coronavirus infection, Medication Noncompliance presents to ED for evaluation. Pt discharged from [facility] 4 days ago s/p inpatient care. Patient states that he has experienced shortness of breath, fatigue, malaise, generalized weakness over the past 2 weeks with persistent symptoms since his departure from the hospital 4 days ago. EMS was notified and upon arrival the patient was found to be in distress and subsequent transported to [facility] for further care and evaluation of the aforementioned symptoms. The patient was seen and evaluated in the emergency department. All lab and imaging studies reviewed. Patient found to have a pulse oximetry of 79% on room and was initiated on treatment with submental oxygen with improvement in symptoms. While awaiting discharge with home oxygen the patient was found to have new onset atrial fibrillation on EKG. Chest x-ray revealed bilateral pneumonia. Patient found to have acute hypoxemic respiratory failure and was subsequently initiated on supplemental oxygen via nonrebreather mask. Patient admitted to telemetry and treated with medical cardioversion with Cardizem and therapeutic anticoagulation with Eliquis. Patient denies fever, chills, chest pain, palpitation, skin rash, recent ill contacts. Patient has not received his COVI D-19 vaccination. Prior admission on 01/17/2021 reviewed. All medication listed at time of admission has been reconciled. Advanced care planning conducted in ED. 01/23/21 patient is seen and examined. Patient is little bit sleepy. Denied any shortness of breath. Less coughing. No new complain. O2 sat 97% on 2 to 3 L of oxygen. Continue current management and therapeutic anticoagulation with Eliquis. Continue antibiotic, vitamin C Alexa and vitamin D and Solu-Medrol. Wean oxygen. Possible discharge in 1 to 2 days. 01/24/21: Patient seen and on 5 liters of oxygen, will obtain ID consult for possible Remdesivir, Consult Cardiology for the noted A Fib. Encourage Pronining 01/25/21: Cardiology evaluated patient for atrial fibrillation and cardiomyopathy. Recommend A/c and rate control strategy. Will request records regarding cardiomyopathy with EF 30%. Optimize heart failure therapy. Will attempt to de-escalate O2 as patient tolerates. Not a candidate for remdesivir due to symptom onset and actemra at this time. May consider if patient worsens. Continue to encourage proning. 01/26/2021: Attempting to de-escalate oxygen. Patient states he is feeling well. Will need home O2 evaluation. CM consulted for home O2. 01/27/2021: OVN had chest pain symptoms. Appears to be pleuritic was resting comfortably. given Dilaudid overnight. Patient states chest pain resolved htis morning however still continues to require 8 l /min [place]. Paged subsequently about escalation of O2 to 10L/min. WIll order CXR and troponin. May consider lasix 40 mg IV x 1 if worsening of pulmonary edema. (1) Acute hypoxemic respiratory failure Current Visit: Yes Status: Acute Plan to address problem: Chest x-ray, supplemental oxygen, pulse oximetry, nebulizer therapy, pulmonary toilet. (2) Bilateral pneumonia Current Visit: Yes Status: Acute Plan to address problem: Pneumonia protocol: Chest x-ray, CBC, CMP, IV antibiotic therapy, supplemental oxygen, pulse oximetry, nebulizer therapy, blood culture. (3) COVID-19 Current Visit: Yes Status: Acute Plan to address problem: Coronavirus protocol: Contact precaution, isolation precautions, IV antibiotic therapy, IV steroid therapy, supplemental oxygen, pulse oximetry, vitamin D therapy, vitamin D therapy, zinc therapy, therapeutic anticoagulation with Eliquis. (4) New onset atrial fibrillation Current Visit: Yes Status: Acute Plan to address problem: Chronicity unclear, therapeutic anticoagulation with Eliquis, rate control with Cardizem on presentation Currently rate controlled Therapy per cardiology team (5) Dilated Cardiomyopathy Current Visit: Yes Status: Acute Plan to address problem: Chronicity unclear ECHO: EF 30%, four-chamber dilation Records request GDMT: Lasix, Coreg, spironolactone, Zestril (5) DVT prophylaxis Current Visit: Yes Status: Acute Plan to address problem: SCD to bilateral lower extremities while in bed, therapeutic anticoagulation (6) Advance care planning Current Visit: Yes Status: Acute Plan to address problem: Disease education conducted, care plan discussed, diagnosis discussed, prognosis discussed, patient is full code, patient knowledges understanding agree with care plan, case management consulted for assistance with discharge planning. History Interval history: No acute complaints today. Patient states that he had chest pain overnight. Mostly occurs while breathing. No radiation to jaw or shoulder. Hospitalist Physical - Physical exam Narrative exam: General appearance: Present: no acute distress, mild distress - EENT Eyes: Present: PERRL, EOM intact ENT: hearing intact, clear oral mucosa, dentition normal - Neck Neck: Present: supple, normal ROM - Respiratory Respiratory effort: normal Respiratory: bilateral: diminished, crackles - Cardiovascular Rhythm: regular Heart Sounds: Present: S1 & S2 - Extremities Extremities: no ischemia, pulses intact, No edema Peripheral Pulses: within normal limits - Abdominal General gastrointestinal: soft, non-tender, non-distended, normal bowel sounds - Integumentary Integumentary: Present: clear, warm, dry - Psychiatric Psychiatric: appropriate mood/affect, intact judgment & insight - Neurologic Neurologic: CNII-XII intact, moves all extremities - Allied Health Allied health notes reviewed: nursing - Constitutional Vitals: Temp Pulse Resp BP Pulse Ox 97.7 F 106 H 18 115/83 95 01/27/21 04:15 01/27/21 04:15 01/27/21 04:15 01/27/21 04:15 01/27/21 12:32 General appearance: Present: no acute distress, mild distress Results - Labs CBC & Chem 7: 01/26/21 07:19 01/27/21 09:05 Labs: Laboratory Last Values WBC 14.6 K/mm3 (4.5-11.0) H 01/26/21 07:19 RBC 4.48 M/mm3 (3.65-5.03) 01/26/21 07:19 Hgb 14.4 gm/dl (11.8-15.2) 01/26/21 07:19 Hct 42.3 % (35.5-45.6) 01/26/21 07:19 MCV 95 fl (84-94) H 01/26/21 07:19 MCH 32 pg (28-32) 01/26/21 07:19 MCHC 34 % (32-34) 01/26/21 07:19 RDW 13.3 % (13.2-15.2) 01/26/21 07:19 Plt Count 310 K/mm3 (140-440) 01/26/21 07:19 Lymph % (Auto) 5.7 % (13.4-35.0) L 01/21/21 07:34 [place] % (Auto) 3.5 % (0.0-7.3) 01/21/21 07:34 Eos % (Auto) 0.1 % (0.0-4.3) 01/21/21 07:34 Baso % (Auto) 1.2 % (0.0-1.8) 01/21/21 07:34 Lymph # (Auto) 0.5 K/mm3 (1.2-5.4) L 01/21/21 07:34 [place] # (Auto) 0.3 K/mm3 (0.0-0.8) 01/21/21 07:34 Eos # (Auto) 0.0 K/mm3 (0.0-0.4) 01/21/21 07:34 Baso # (Auto) 0.1 K/mm3 (0.0-0.1) 01/21/21 07:34 Add Manual Diff Complete 01/23/21 05:13 Total Counted 100 01/23/21 05:13 Seg Neutrophils % Payroll Examiner 01/23/21 05:13 Seg Neuts % (Manual) 94.0 % (40.0-70.0) H 01/23/21 05:13 Band Neutrophils % 1.0 % 01/23/21 05:13 Lymphocytes % (Manual) 3.0 % (13.4-35.0) L 01/23/21 05:13 Monocytes % (Manual) 2.0 % (0.0-7.3) 01/23/21 05:13 Nucleated RBC % Not Reportable 01/23/21 05:13 Seg Neutrophils # 7.3 K/mm3 (1.8-7.7) 01/21/21 07:34 Seg Neutrophils # Man 6.3 K/mm3 (1.8-7.7) 01/23/21 05:13 Band Neutrophils # 0.1 K/mm3 01/23/21 05:13 Lymphocytes # (Manual) 0.2 K/mm3 (1.2-5.4) L 01/23/21 05:13 Abs React Lymphs (Man) 0.0 K/mm3 01/23/21 05:13 Monocytes # (Manual) 0.1 K/mm3 (0.0-0.8) 01/23/21 05:13 Eosinophils # (Manual) 0.0 K/mm3 (0.0-0.4) 01/23/21 05:13 Basophils # (Manual) 0.0 K/mm3 (0.0-0.1) 01/23/21 05:13 Metamyelocytes # 0.0 K/mm3 01/23/21 05:13 Myelocytes # 0.0 K/mm3 01/23/21 05:13 Promyelocytes # 0.0 K/mm3 01/23/21 05:13 Blast Cells # 0.0 K/mm3 01/23/21 05:13 WBC Morphology Not Reportable 01/23/21 05:13 Hypersegmented Neuts Not Reportable 01/23/21 05:13 Hyposegmented Neuts Not Reportable 01/23/21 05:13 Hypogranular Neuts Not Reportable 01/23/21 05:13 Smudge Cells Not Reportable 01/23/21 05:13 Toxic Granulation Not Reportable 01/23/21 05:13 Toxic Vacuolation Not Reportable 01/23/21 05:13 Dohle Bodies Not Reportable 01/23/21 05:13 Pelger-Huet Anomaly Not Reportable 01/23/21 05:13 Lito Rods Not Reportable 01/23/21 05:13 Platelet Estimate Consistent w auto 01/23/21 05:13 Clumped Platelets Not Reportable 01/23/21 05:13 Plt Clumps, EDTA Not Reportable 01/23/21 05:13 Large Platelets Not Reportable 01/23/21 05:13 Giant Platelets Not Reportable 01/23/21 05:13 Platelet Satelliting Not Reportable 01/23/21 05:13 Plt Morphology Comment Not Reportable 01/23/21 05:13 RBC Morphology Not Reportable 01/23/21 05:13 Dimorphic RBCs Not Reportable 01/23/21 05:13 Polychromasia Not Reportable 01/23/21 05:13 Hypochromasia Not Reportable 01/23/21 05:13 Poikilocytosis Not Reportable 01/23/21 05:13 Anisocytosis Not Reportable 01/23/21 05:13 Microcytosis Not Reportable 01/23/21 05:13 Macrocytosis Not Reportable 01/23/21 05:13 Spherocytes Not Reportable 01/23/21 05:13 Pappenheimer Bodies Not Reportable 01/23/21 05:13 Sickle Cells Not Reportable 01/23/21 05:13 Target Cells Not Reportable 01/23/21 05:13 Tear Drop Cells Not Reportable 01/23/21 05:13 Ovalocytes Not Reportable 01/23/21 05:13 Helmet Cells Not Reportable 01/23/21 05:13 [place] Bodies Not Reportable 01/23/21 05:13 [place] Rings Not Reportable 01/23/21 05:13 Camila Cells Not Reportable 01/23/21 05:13 Bite Cells Not Reportable 01/23/21 05:13 Crenated Cell Not Reportable 01/23/21 05:13 Elliptocytes Not Reportable 01/23/21 05:13 Acanthocytes (Spur) Not Reportable 01/23/21 05:13 Rouleaux Not Reportable 01/23/21 05:13 Hemoglobin C Crystals Not Reportable 01/23/21 05:13 Schistocytes Not Reportable 01/23/21 05:13 Malaria parasites Not Reportable 01/23/21 05:13 Matthew Bodies Not Reportable 01/23/21 05:13 Hem Pathologist Commnt No 01/23/21 05:13 PT 20.1 Sec. (12.2-14.9) H 01/22/21 14:52 INR 1.66 (0.87-1.13) H 01/22/21 14:52 APTT 31.8 Sec. (24.2-36.6) 01/22/21 14:52 D-Dimer 364.54 ng/mlDDU (0-234) H 01/21/21 07:34 Sodium 141 mmol/L (137-145) 01/27/21 09:05 Potassium 4.8 mmol/L (3.6-5.0) 01/27/21 09:05 Chloride 104.8 mmol/L (98-107) 01/27/21 09:05 Carbon Dioxide 28 mmol/L (22-30) 01/27/21 09:05 Anion Gap 13 mmol/L 01/27/21 09:05 BUN 23 mg/dL (9-20) H 01/27/21 09:05 Creatinine 0.7 mg/dL (0.8-1.3) L 01/27/21 09:05 Estimated GFR > 60 ml/min 01/27/21 09:05 BUN/Creatinine Ratio 33 % 01/27/21 09:05 Glucose 174 mg/dL (75-100) H 01/27/21 09:05 POC Glucose 191 mg/dL (70-105) H 01/24/21 11:10 Lactic Acid 2.10 mmol/L (0.7-2.0) H* 01/21/21 10:57 Calcium 8.5 mg/dL (8.4-10.2) 01/27/21 09:05 Magnesium 2.20 mg/dL (1.7-2.3) 01/22/21 14:43 Ferritin 1530.0 ng/mL (30.0-300.0) H 01/21/21 07:34 Total Bilirubin 0.60 mg/dL (0.1-1.2) 01/27/21 09:05 AST 30 units/L (5-40) 01/27/21 09:05 ALT 71 units/L (7-56) H 01/27/21 09:05 Alkaline Phosphatase 50 units/L (35-129) 01/27/21 09:05 Lactate Dehydrogenase 443 units/L (91-180) H 01/21/21 07:34 C-Reactive Protein 1.50 mg/dL (0.00-1.30) H 01/24/21 19:09 Total Protein 5.9 g/dL (6.3-8.2) L 01/27/21 09:05 Albumin 2.6 g/dL (3.9-5) L 01/27/21 09:05 Albumin/Globulin Ratio 0.8 % 01/27/21 09:05 Procalcitonin < 0.05 ng/mL (<0.15) 01/24/21 19:09 TSH 1.080 mlU/mL (0.270-4.200) 01/22/21 14:43 Free T4 1.06 ng/dL (0.76-1.46) 01/22/21 14:43 Coronavirus (PCR) Positive (Negative) A 01/21/21 Unknown Olmedo/IV: Voiding Method Urinal Active Medications - Current Medications Current Medications: Generic Name Dose Route Start Last Admin Trade Name Freq PRN Reason Stop Dose Admin Acetaminophen 650 mg 01/22/21 14:38 01/22/21 23:13 Acetaminophen 325 Mg Tab PO 650 mg Q4H PRN Administration Pain MILD(1-3)/Fever >100.5/MATUTE Albuterol 2.5 mg 01/22/21 14:38 Albuterol 2.5 Mg/3 Ml Nebu IH Q4HRT PRN Shortness Of Breath Apixaban 5 mg 01/22/21 14:41 01/27/21 10:48 Apixaban 5 Mg Tab PO 5 mg Q12HR BUSHRA Administration Protocol Ascorbic Acid 500 mg 01/22/21 22:00 01/27/21 10:47 Ascorbic Acid 500 Mg Tab PO 500 mg BID BUSHRA Administration Budesonide 0.5 mg 01/27/21 12:15 Budesonide 0.5 Mg/2 Ml Nebu IH Q12HRT [facility] Carvedilol 6.25 mg 01/25/21 12:00 01/27/21 10:47 Carvedilol 6.25 Mg Tab PO 6.25 mg BID BUSHRA Administration Cholecalciferol 1,000 unit 01/22/21 16:00 01/27/21 10:48 Cholecalciferol (Vit D3) 1000 Unit (25 Mcg) Tab PO 1,000 unit DAILY BUSHRA Administration Furosemide 20 mg 01/26/21 15:00 01/27/21 10:48 Furosemide 20 Mg Tab PO 20 mg QDAY BUSHRA Administration Hydromorphone HCl 0.5 mg 01/22/21 14:38 01/27/21 04:16 Hydromorphone 1 Mg/1 Ml Inj IV 0.5 mg Q24H PRN Administration Pain , Severe (7-10) Lisinopril 2.5 mg 01/25/21 12:00 01/27/21 10:46 Lisinopril 5 Mg Tab PO 2.5 mg QDAY BUSHRA Administration Methylprednisolone Sodium Succinate 40 mg 01/22/21 22:00 01/27/21 05:49 Methylprednisolone Sod Succinate 40 Mg/1 Ml Inj IV 40 mg Q8HR BUSHRA Administration Ondansetron HCl 4 mg 01/22/21 14:38 Ondansetron 4 Mg/2 Ml Inj IV Q8H PRN Nausea And Vomiting Oxycodone/Acetaminophen 1 tab 01/22/21 14:38 01/24/21 23:02 Oxycodone /Acetaminophen 5-325mg Tab PO 1 tab Q12H PRN Administration Pain, Moderate (4-6) Sodium Chloride 10 ml 01/22/21 22:00 01/27/21 10:48 Sodium Chloride 0.9% 10 Ml Flush Syringe IV 10 ml BID BUSHRA Administration Sodium Chloride 10 ml 09/18/21 14:38 01/23/21 05:42 Sodium Chloride 0.9% 10 Ml Flush Syringe IV 10 ml PRN PRN Administration LINE FLUSH Spironolactone 25 mg 01/25/21 12:00 01/27/21 10:47 Spironolactone 25 Mg Tab PO 25 mg QDAY BUSHRA Administration Zinc Sulfate 220 mg 01/22/21 22:00 01/27/21 10:47 Zinc Sulfate 220 Mg Cap PO 220 mg BID BUSHRA Administration Nutrition/Malnutrition Assess - Dietary Evaluation Nutrition/Malnutrition Findings: Nutrition Notes Start: 01/27/21 10:23 Freq: Status: Active Protocol: Document 01/27/21 10:23 EB (Rec: 01/27/21 10:49 EB [id number]) Nutrition Notes Need for Assessment generated from: LOS Initial or Follow up Brief Note Current Diagnosis Respiratory Failure Other Pertinent Diagnosis Covid +, Bilateral Pneumonia, A. fib Current Diet Cardiac Labs/Tests BUN 23 Cr 0.7 Glu 174 Pertinent Medications Reviewed Height 5 ft 8.9 in Weight 81.8 kg [place] Body Weight (kg) 72.45 BMI 26.6 Intake Prior to Admission Good Weight Status Overweight Subjective/Other Information RD screen for LOS. Pt is consuming 100% of each meal on cardiac diet, but pt states he is still hungry after finishing his meals. Pt requests an ONS. Percent of energy/protein needs met: 100%/100% Burn Absent Trauma Absent GI Symptoms None Current % PO Good (75-100%) Minimum of two criteria No physical signs of malnutrition #1 Nutrition Diagnosis No nutrition diagnosis at this time Is patient on ventilator? No Is Patient Ambulatory and/or Out of Bed Yes REE-([place]. Jeor-ambulatory/OOB) [ 2140.775 [id number]] Calculation Used for Recommendations [place] or Additional Notes Protein Needs: 65g-81 g/day Fluids: 1 mL/kcal Nutrition Intervention Change Diet Order: Continue current diet Add Supplement/Snack (indicate name/kcal 1 Ensure Daily /protein ) Provides kCal: 350 Provides Protein (gm) 20 Goal #1 Continue to meet can and protein needs via PO intake Anticipated Discharge Needs: Cardiac diet Revisit per MD consult or patient Sign Off request:
--- NOTE | 2021-01-27 12:57 | XRay Report ---
CHEST 1 VIEW 01/27/2021 11:47 AM INDICATION / CLINICAL INFORMATION: Shortness of breath. COMPARISON: 01/21/21. FINDINGS: SUPPORT DEVICES: None. HEART / MEDIASTINUM: The heart size and pulmonary vasculature are normal. LUNGS / PLEURA: There are moderate patchy parenchymal opacities throughout both lungs, more prominent in the mid to lower lung zones and significantly increased. No pleural effusion. No pneumothorax. ADDITIONAL FINDINGS: No significant additional findings. IMPRESSION: Moderate bilateral patchy parenchymal opacities have increased significantly. The appeara nce is probably related to atypical pneumonia. Signer Name: Scott Cam MD Signed: 01/27/2021 12:53 PM Workstation Name: [id number]
[2021-01-27] MEDS ORDERED: methylPREDNISolone Sod Succinate 40 MG/1 ML INJ IV SCH (13:00)
[2021-01-27] MEDS: methylPREDNISolone Sod Succinate 125 MG/2 ML INJ IV SCH ×3 (14:21→23:54)
[2021-01-27] MEDS ORDERED: NITROGLYCERIN 0.4 MG TAB SUBL SL ONE (16:04)
[2021-01-28] MEDS ORDERED: MORPHINE 2 MG/1 ML INJ IV ONE (01:29)
[2021-01-28] MEDS: NITROGLYCERIN 0.4 MG TAB SUBL SL PRN ×2 (03:10→03:21)
[2021-01-28] MEDS: methylPREDNISolone Sod Succinate 125 MG/2 ML INJ IV SCH ×3 (07:38→17:09)
[2021-01-28 08:13] LABS: Hematocrit 40.5 % (35.5-45.6); Hemoglobin 13.8 gm/dl (11.8-15.2); Mean Corpuscular HGB Conc 34 % (32-34); Mean Corpuscular Volume 95 fl (84-94); Platelet Count 305 K/mm3 (140-440); Red Blood Count 4.28 M/mm3 (3.65-5.03); Red Cell Distribution Width 13.4 % (13.2-15.2)
[2021-01-28] MEDS: ZINC SULFATE 220 MG CAP PO SCH (09:56)
[2021-01-28] MEDS: ASCORBIC ACID 500 MG TAB PO SCH (09:56)
[2021-01-28] MEDS: carvediloL 6.25 MG TAB PO SCH (09:56)
[2021-01-28] MEDS: APIXABAN 5 MG TAB PO SCH (09:56)
[2021-01-28] MEDS: CHOLECALCIFEROL (VIT D3) 1000 UNIT (25 mcg) TAB PO SCH (09:56)
[2021-01-28] MEDS: FUROSEMIDE 20 MG TAB PO SCH (09:56)
[2021-01-28] MEDS: LISINOPRIL 5 MG TAB PO SCH (09:56)
[2021-01-28] MEDS: SPIRONOLACTONE 25 MG TAB PO SCH (10:03)
[2021-01-28] MEDS ORDERED: PANTOPRAZOLE 40 MG TAB PO SCH (11:30)
--- NOTE | 2021-01-28 12:14 | Consultation ---
History of Present Illness Consult date: 01/28/21 Requesting physician: BAM MOON Reason for consult: hypoxemia, other (COVID) History of present illness: 56 y/o male recently diagnosed with COVID and discharged from the hospital, was readmitted 3 days post discharge with worsening shortness of breath and hypoxemia. CXR was worse than prior admission and echo revealed dialated cardiomyopathy, etiology and time unknown. Patient intially on 10 liters on admit then weaned to as lows as 3 and is now back up on 15. pulm consulted for this. Patient was not candidate for Remdesivir or Actemra at last hospital stay. Remainder of the review is negative. Past History Past Medical History: other (See HPI) Past Surgical History: appendectomy Social history: . denies: smoking, alcohol abuse, prescription drug abuse Family history: no significant family history, other (Reviewed) Medications and Allergies Allergies Allergy/AdvReac Type Severity Reaction Status Date / Time No Known Allergies Allergy Verified 05/16/17 02:50 Home Medications Medication Instructions Recorded Confirmed Last Taken Type HYDROcodone/APAP 5-325 [[place] 1 each PO Q6HR PRN #15 tablet 07/14/14 01/24/21 Unknown Rx 5-325 mg TAB] Tizanidine HCl [Zanaflex] 4 mg PO PRN PRN 07/14/14 01/24/21 07/14/14 History methOCARBAMOL [Robaxin TAB] 500 mg PO Q6H #30 tablet 07/14/14 01/24/21 Unknown Rx Silver Sulfadiazine [Silvadene] 1 applic TP BID 14 Days #1 08/03/20 01/24/21 0 01/16/21 09:00 Rx cream..g. Cyclobenzaprine [Flexeril 10 MG 10 mg PO TID PRN #20 tablet 09/23/20 01/24/21 01/15/21 21:00 Rx TAB] Ascorbic Acid [Vitamin C] 1,000 mg PO BID #60 tablet 01/18/21 01/24/21 Unknown Rx Cholecalciferol (Vitamin D3) 5,000 unit PO DAILY #30 tablet 01/18/21 01/24/21 Unknown Rx [Vitamin D3] Famotidine [Pepcid] 10 mg PO BID #30 tablet 01/18/21 01/24/21 Unknown Rx Zinc Sulfate 220 mg PO BID #60 capsule 01/18/21 01/24/21 Unknown Rx dexAMETHasone [Dexamethasone] 6 mg PO DAILY #9 tablet 01/18/21 01/24/21 Unknown Rx Ascorbic Acid [Vitamin C] 1,000 mg PO DAILY #14 tablet 01/21/21 Unknown Rx Azithromycin [Zithromax Z-ENID] 250 mg PO DAILY #6 tablet 01/21/21 Unknown Rx Cholecalciferol Vit D3 [Vitamin D3 1,000 unit PO QDAY #14 tablet 01/21/21 Unknown Rx 1,000 UNIT TAB] Prednisone [predniSONE 10 mg 10 mg PO .TAPER #1 tab.ds.pk 01/21/21 Unknown Rx (6-Day Pack, 21 Tabs)] Active Meds: Active Medications Acetaminophen (Acetaminophen 325 Mg Tab) 650 mg PO Q4H PRN PRN Reason: Pain MILD(1-3)/Fever >100.5/MATUTE Last Admin: 01/22/21 23:13 Dose: 650 mg Documented by: Albuterol (Albuterol 2.5 Mg/3 Ml Nebu) 2.5 mg IH Q4HRT PRN PRN Reason: Shortness Of Breath Ascorbic Acid (Ascorbic Acid 500 Mg Tab) 500 mg PO BID [facility] Last Admin: 01/28/21 09:56 Dose: 500 mg Documented by: Carvedilol (Carvedilol 6.25 Mg Tab) 6.25 mg PO BID [facility] Last Admin: 01/28/21 09:56 Dose: 6.25 mg Documented by: Cholecalciferol (Cholecalciferol (Vit D3) 1000 Unit (25 Mcg) Tab) 1,000 unit PO DAILY [facility] Last Admin: 01/28/21 09:56 Dose: 1,000 unit Documented by: Furosemide (Furosemide 20 Mg Tab) 20 mg PO QDAY [facility] Last Admin: 01/28/21 09:56 Dose: 20 mg Documented by: Hydromorphone HCl (Hydromorphone 1 Mg/1 Ml Inj) 0.5 mg IV Q24H PRN PRN Reason: Pain , Severe (7-10) Last Admin: 01/27/21 04:16 Dose: 0.5 mg Documented by: Lisinopril (Lisinopril 5 Mg Tab) 2.5 mg PO QDAY [facility] Last Admin: 01/28/21 09:56 Dose: 2.5 mg Documented by: Methylprednisolone Sodium Succinate (Methylprednisolone Sod Succinate 125 Mg/2 Ml Inj) 60 mg IV Q6HR [facility] Last Admin: 01/28/21 12:08 Dose: 60 mg Documented by: Nitroglycerin (Nitroglycerin 0.4 Mg Tab Subl) 0.4 mg SL .Q5MIN PRN PRN Reason: Chest Pain Last Admin: 01/28/21 03:21 Dose: 0.4 mg Documented by: Ondansetron HCl (Ondansetron 4 Mg/2 Ml Inj) 4 mg IV Q8H PRN PRN Reason: Nausea And Vomiting Last Admin: 01/28/21 01:47 Dose: 4 mg Documented by: Oxycodone/Acetaminophen (Oxycodone /Acetaminophen 5-325mg Tab) 1 tab PO Q12H PRN PRN Reason: Pain, Moderate (4-6) Last Admin: 01/24/21 23:02 Dose: 1 tab Documented by: Pantoprazole Sodium (Pantoprazole 40 Mg Tab) 40 mg PO QDAC [facility] Last Admin: 01/28/21 12:10 Dose: 40 mg Documented by: Rivaroxaban (Rivaroxaban 20 Mg Tab) 20 mg PO QPMDIAB [facility]; Protocol Sodium Chloride (Sodium Chloride 0.9% 10 Ml Flush Syringe) 10 ml IV BID [facility] Last Admin: 01/28/21 10:01 Dose: 10 ml Documented by: Sodium Chloride (Sodium Chloride 0.9% 10 Ml Flush Syringe) 10 ml IV PRN PRN PRN Reason: LINE FLUSH Last Admin: 01/23/21 05:42 Dose: 10 ml Documented by: Spironolactone (Spironolactone 25 Mg Tab) 25 mg PO QDAY [facility] Last Admin: 01/28/21 10:03 Dose: 25 mg Documented by: Zinc Sulfate (Zinc Sulfate 220 Mg Cap) 220 mg PO BID [facility] Last Admin: 01/28/21 09:56 Dose: 220 mg Documented by: Physical Examination Vital signs: Vital Signs Resp 30 H 01/21/21 06:48 General appearance: alert Eyes: non-icteric Results - Laboratory Findings CBC and BMP: 01/28/21 07:54 01/28/21 07:54 PT/INR, D-dimer PT 20.1 Sec. (12.2-14.9) H 01/22/21 14:52 INR 1.66 (0.87-1.13) H 01/22/21 14:52 D-Dimer 364.54 ng/mlDDU (0-234) H 01/21/21 07:34 Abnormal lab findings: Abnormal Labs 01/21/21 01/21/21 01/21/21 07:34 07:34 07:34 WBC RBC 5.11 H Hgb 16.8 H Hct 47.4 H MCV MCH 33 H MCHC 35 H RDW Lymph % (Auto) 5.7 L Lymph # (Auto) 0.5 L Seg Neutrophils % 89.5 H Seg Neuts % (Manual) Lymphocytes % (Manual) Lymphocytes # (Manual) PT INR D-Dimer 364.54 H Sodium 136 L Potassium 3.4 L Chloride BUN Creatinine 0.7 L Glucose 176 H POC Glucose Lactic Acid Ferritin ALT Lactate Dehydrogenase 443 H C-Reactive Protein 8.00 H Total Protein Albumin 2.6 L Coronavirus (PCR) 01/21/21 01/21/21 01/21/21 07:34 07:34 10:57 WBC RBC Hgb Hct MCV MCH MCHC RDW Lymph % (Auto) Lymph # (Auto) Seg Neutrophils % Seg Neuts % (Manual) Lymphocytes % (Manual) Lymphocytes # (Manual) PT INR D-Dimer Sodium Potassium Chloride BUN Creatinine Glucose POC Glucose Lactic Acid 3.10 H* 2.10 H* Ferritin 1530.0 H ALT Lactate Dehydrogenase C-Reactive Protein Total Protein Albumin Coronavirus (PCR) 01/21/21 01/22/21 01/22/21 Unknown 14:52 14:52 WBC RBC Hgb Hct MCV MCH MCHC RDW Lymph % (Auto) Lymph # (Auto) Seg Neutrophils % Seg Neuts % (Manual) Lymphocytes % (Manual) Lymphocytes # (Manual) PT 20.1 H INR 1.66 H D-Dimer Sodium Potassium Chloride BUN Creatinine 0.7 L Glucose POC Glucose Lactic Acid Ferritin ALT Lactate Dehydrogenase C-Reactive Protein Total Protein Albumin Coronavirus (PCR) Positive A 01/22/21 01/23/21 01/23/21 14:58 01:31 05:13 WBC 11.5 H RBC Hgb 15.4 H 15.7 H Hct 45.8 H MCV MCH MCHC RDW 13.1 L Lymph % (Auto) Lymph # (Auto) Seg Neutrophils % Seg Neuts % (Manual) 94.0 H Lymphocytes % (Manual) 3.0 L Lymphocytes # (Manual) 0.2 L PT INR D-Dimer Sodium Potassium Chloride BUN Creatinine Glucose POC Glucose 133 H Lactic Acid Ferritin ALT Lactate Dehydrogenase C-Reactive Protein Total Protein Albumin Coronavirus (PCR) 01/23/21 01/23/21 01/23/21 05:13 07:52 11:47 WBC RBC Hgb Hct MCV MCH MCHC RDW Lymph % (Auto) Lymph # (Auto) Seg Neutrophils % Seg Neuts % (Manual) Lymphocytes % (Manual) Lymphocytes # (Manual) PT INR D-Dimer Sodium Potassium Chloride 107.9 H BUN Creatinine 0.7 L Glucose 177 H POC Glucose 158 H 206 H Lactic Acid Ferritin ALT Lactate Dehydrogenase C-Reactive Protein Total Protein Albumin Coronavirus (PCR) 01/23/21 01/24/21 01/24/21 21:40 07:04 07:56 WBC 12.6 H RBC Hgb Hct MCV MCH 33 H MCHC 35 H RDW 13.1 L Lymph % (Auto) Lymph # (Auto) Seg Neutrophils % Seg Neuts % (Manual) Lymphocytes % (Manual) Lymphocytes # (Manual) PT INR D-Dimer Sodium Potassium Chloride BUN Creatinine Glucose POC Glucose 157 H 162 H Lactic Acid Ferritin ALT Lactate Dehydrogenase C-Reactive Protein Total Protein Albumin Coronavirus (PCR) 01/24/21 01/24/21 01/25/21 11:10 19:09 06:51 WBC RBC Hgb Hct MCV MCH MCHC RDW Lymph % (Auto) Lymph # (Auto) Seg Neutrophils % Seg Neuts % (Manual) Lymphocytes % (Manual) Lymphocytes # (Manual) PT INR D-Dimer Sodium Potassium Chloride BUN 23 H Creatinine 0.5 L Glucose 142 H POC Glucose 191 H Lactic Acid Ferritin ALT Lactate Dehydrogenase C-Reactive Protein 1.50 H Total Protein 6.0 L Albumin 2.6 L Coronavirus (PCR) 01/26/21 01/26/21 01/27/21 07:19 07:19 09:05 WBC 14.6 H RBC Hgb Hct MCV 95 H MCH MCHC RDW Lymph % (Auto) Lymph # (Auto) Seg Neutrophils % Seg Neuts % (Manual) Lymphocytes % (Manual) Lymphocytes # (Manual) PT INR D-Dimer Sodium Potassium Chloride BUN 22 H 23 H Creatinine 0.6 L 0.7 L Glucose 147 H 174 H POC Glucose Lactic Acid Ferritin ALT 59 H 71 H Lactate Dehydrogenase C-Reactive Protein Total Protein 5.8 L 5.9 L Albumin 2.5 L 2.6 L Coronavirus (PCR) 01/28/21 01/28/21 07:54 07:54 WBC 18.3 H RBC Hgb Hct MCV 95 H MCH MCHC RDW Lymph % (Auto) Lymph # (Auto) Seg Neutrophils % Seg Neuts % (Manual) Lymphocytes % (Manual) Lymphocytes # (Manual) PT INR D-Dimer Sodium Potassium Chloride BUN Creatinine 0.6 L Glucose POC Glucose Lactic Acid Ferritin ALT Lactate Dehydrogenase C-Reactive Protein Total Protein Albumin Coronavirus (PCR) - Diagnostic Findings Chest x-ray: image reviewed Assessment and Plan 56 y/o male with known covid positive state, now with worsening bilateral infiltrates, cardiomyopathy and increasing oxygen requirement 1. Agree with increase in steroid and would keep this dose through the weekend at least. If not better by Sunday may need to consider even Solumedrol 125 IV q8 2 Prone as much as tolerated 3. Agree with lasix but unfortunately BP is marginal so must be cautious. However given his low EF, likely lives in a low flow state so should be willing to accept MAPS of 55 and greater. A daily net negative state will be very helpful to oxygenation. 4. Very very guarded to poor prognosis, especially if this cardiac finding is related to COVID. Hopeful his Kidneys can maintain through this.
--- NOTE | 2021-01-28 13:12 | Progress Note ---
Assessment and Plan - Patient Problems (1) Atrial fibrillation Current Visit: Yes Status: Acute Plan to address problem: Patient admitted with Covid pneumonia, which is apparently getting worse based on his increasing oxygen requirements and worsening chest x-ray. On presentation, he had atrial fibrillation which has persisted, he is on rate control management. The chronicity of his atrial fibrillation is uncertain but it appears to have predated his current presentation. Continue rate control strategy and oral anticoagulation. (2) Dilated cardiomyopathy Current Visit: Yes Status: Acute Plan to address problem: Patient was found on echocardiogram during this admission to have four-chamber cardiomyopathy, likely chronic, and predated his current presentation with acute viral pneumonia. Continue guideline directed medical therapy. Subjective Date of service: 01/28/21 Principal diagnosis: COVID-19 Interval history: Patient has been reported over the last 2 days to have increased oxygen requirements, increasing hypoxemia. A chest x-ray today reveals bilateral patchy infiltrates, worse when compared to his admission chest x-ray. Findings appear consistent with worsening viral pneumonia. Objective Vital Signs Temp Pulse Resp BP Pulse Ox 01/28/21 09:31 93 01/28/21 03:03 97.8 F 113 H 22 99/62 92 01/27/21 22:09 91 H 18 106/66 94 01/27/21 22:00 94 01/27/21 20:41 96 01/27/21 17:34 98 H 90 01/27/21 15:33 115 H 01/27/21 15:28 91 - Physical Examination Narrative exam: Full physical exam is deferred due to acute COVID-19 infection. General: No Apparent Distress - Labs and Meds CBC 01/28/21 Range/Units 07:54 WBC 18.3 H (4.5-11.0) K/mm3 RBC 4.28 (3.65-5.03) M/mm3 Hgb 13.8 (11.8-15.2) gm/dl Hct 40.5 (35.5-45.6) % Plt Count 305 (140-440) K/mm3 Comprehensive Metabolic Panel 01/28/21 Range/Units 07:54 Creatinine 0.6 L (0.8-1.3) mg/dL
--- NOTE | 2021-01-28 15:22 | Progress Note ---
Assessment and Plan Assessment and plan: 56 YO Male with coronavirus infection, Medication Noncompliance presents to ED for evaluation. Pt discharged from [facility] 4 days ago s/p inpatient care. Patient states that he has experienced shortness of breath, fatigue, malaise, generalized weakness over the past 2 weeks with persistent symptoms since his departure from the hospital 4 days ago. EMS was notified and upon arrival the patient was found to be in distress and subsequent transported to [facility] for further care and evaluation of the aforementioned symptoms. The patient was seen and evaluated in the emergency department. All lab and imaging studies reviewed. Patient found to have a pulse oximetry of 79% on room and was initiated on treatment with submental oxygen with improvement in symptoms. While awaiting discharge with home oxygen the patient was found to have new onset atrial fibrillation on EKG. Chest x-ray revealed bilateral pneumonia. Patient found to have acute hypoxemic respiratory failure and was subsequently initiated on supplemental oxygen via nonrebreather mask. Patient admitted to telemetry and treated with medical cardioversion with Cardizem and therapeutic anticoagulation with Eliquis. Patient denies fever, chills, chest pain, palpitation, skin rash, recent ill contacts. Patient has not received his COVI D-19 vaccination. Prior admission on 01/17/2021 reviewed. All medication listed at time of admission has been reconciled. Advanced care planning conducted in ED. 01/23/21 patient is seen and examined. Patient is little bit sleepy. Denied any shortness of breath. Less coughing. No new complain. O2 sat 97% on 2 to 3 L of oxygen. Continue current management and therapeutic anticoagulation with Eliquis. Continue antibiotic, vitamin C Alexa and vitamin D and Solu-Medrol. Wean oxygen. Possible discharge in 1 to 2 days. 01/24/21: Patient seen and on 5 liters of oxygen, will obtain ID consult for possible Remdesivir, Consult Cardiology for the noted A Fib. Encourage Pronining 01/25/21: Cardiology evaluated patient for atrial fibrillation and cardiomyopathy. Recommend A/c and rate control strategy. Will request records regarding cardiomyopathy with EF 30%. Optimize heart failure therapy. Will attempt to de-escalate O2 as patient tolerates. Not a candidate for remdesivir due to symptom onset and actemra at this time. May consider if patient worsens. Continue to encourage proning. 01/26/2021: Attempting to de-escalate oxygen. Patient states he is feeling well. Will need home O2 evaluation. CM consulted for home O2. 01/27/2021: OVN had chest pain symptoms. Appears to be pleuritic was resting comfortably. given Dilaudid overnight. Patient states chest pain resolved htis morning however still continues to require 8 l /min [place]. Paged subsequently about escalation of O2 to 10L/min. WIll order CXR and troponin. May consider lasix 40 mg IV x 1 if worsening of pulmonary edema. 01/28/2021: Abd pain, epigastric burning in nature. EKG/Troponin from yesterday negative for ischemia. Will continue steroids through the weekend per pulm recs and consider escalation on sunday if patient continues to worsen. Poor prognosis, this patient's O2 has only worsened now requiring 15 l/min. Will continue supportive management. (1) Acute hypoxemic respiratory failure Current Visit: Yes Status: Acute Plan to address problem: Chest x-ray, supplemental oxygen, pulse oximetry, nebulizer therapy, pulmonary toilet. (2) Bilateral pneumonia Current Visit: Yes Status: Acute Plan to address problem: Pneumonia protocol: Chest x-ray, CBC, CMP, IV antibiotic therapy, supplemental oxygen, pulse oximetry, nebulizer therapy, blood culture. (3) COVID-19 Current Visit: Yes Status: Acute Plan to address problem: Coronavirus protocol: Contact precaution, isolation precautions, IV antibiotic therapy, IV steroid therapy, supplemental oxygen, pulse oximetry, vitamin D therapy, vitamin D therapy, zinc therapy, therapeutic anticoagulation with Eliquis. (4) New onset atrial fibrillation Current Visit: Yes Status: Acute Plan to address problem: Chronicity unclear, therapeutic anticoagulation with Eliquis, rate control with Cardizem on presentation Currently rate controlled Therapy per cardiology team (5) Dilated Cardiomyopathy Current Visit: Yes Status: Acute Plan to address problem: Chronicity unclear ECHO: EF 30%, four-chamber dilation Records request GDMT: Lasix, Coreg, spironolactone, Zestril (5) DVT prophylaxis Current Visit: Yes Status: Acute Plan to address problem: SCD to bilateral lower extremities while in bed, therapeutic anticoagulation (6) Advance care planning Current Visit: Yes Status: Acute Plan to address problem: Disease education conducted, care plan discussed, diagnosis discussed, prognosis discussed, patient is full code, patient knowledges understanding agree with care plan, case management consulted for assistance with discharge planning. History Interval history: Patient clarified chest pain symptomology from yesterday. Pain is actually burning epigastric pain on encounter. No tenderness to palpation. Hospitalist Physical - Physical exam Narrative exam: General appearance: Present: no acute distress, mild distress, on 15l/min supp O 2. - EENT Eyes: Present: PERRL, EOM intact ENT: hearing intact, clear oral mucosa, dentition normal - Neck Neck: Present: supple, normal ROM - Respiratory Respiratory effort: normal Respiratory: bilateral: diminished, crackles - Cardiovascular Rhythm: regular Heart Sounds: Present: S1 & S2 - Extremities Extremities: no ischemia, pulses intact, No edema Peripheral Pulses: within normal limits - Abdominal General gastrointestinal: soft, non-tender, non-distended, normal bowel sounds - Integumentary Integumentary: Present: clear, warm, dry - Psychiatric Psychiatric: appropriate mood/affect, intact judgment & insight - Neurologic Neurologic: CNII-XII intact, moves all extremities - Allied Health Allied health notes reviewed: nursing - Constitutional Vitals: Temp Pulse Resp BP Pulse Ox 97.6 F 89 22 93/65 95 01/28/21 11:55 01/28/21 11:55 01/28/21 11:55 01/28/21 11:55 01/28/21 11:55 General appearance: Present: no acute distress, mild distress HEART Score - HEART Score Troponin: Troponin T < 0.010 ng/mL (0.00-0.029) 01/28/21 02:51 Results - Labs CBC & Chem 7: 01/28/21 07:54 01/28/21 07:54 Labs: Laboratory Last Values WBC 18.3 K/mm3 (4.5-11.0) H 01/28/21 07:54 RBC 4.28 M/mm3 (3.65-5.03) 01/28/21 07:54 Hgb 13.8 gm/dl (11.8-15.2) 01/28/21 07:54 Hct 40.5 % (35.5-45.6) 01/28/21 07:54 MCV 95 fl (84-94) H 01/28/21 07:54 MCH 32 pg (28-32) 01/28/21 07:54 MCHC 34 % (32-34) 01/28/21 07:54 RDW 13.4 % (13.2-15.2) 01/28/21 07:54 Plt Count 305 K/mm3 (140-440) 01/28/21 07:54 Lymph % (Auto) 5.7 % (13.4-35.0) L 01/21/21 07:34 [place] % (Auto) 3.5 % (0.0-7.3) 01/21/21 07:34 Eos % (Auto) 0.1 % (0.0-4.3) 01/21/21 07:34 Baso % (Auto) 1.2 % (0.0-1.8) 01/21/21 07:34 Lymph # (Auto) 0.5 K/mm3 (1.2-5.4) L 01/21/21 07:34 [place] # (Auto) 0.3 K/mm3 (0.0-0.8) 01/21/21 07:34 Eos # (Auto) 0.0 K/mm3 (0.0-0.4) 01/21/21 07:34 Baso # (Auto) 0.1 K/mm3 (0.0-0.1) 01/21/21 07:34 Add Manual Diff Complete 01/23/21 05:13 Total Counted 100 01/23/21 05:13 Seg Neutrophils % Sandblaster Supervisor 01/23/21 05:13 Seg Neuts % (Manual) 94.0 % (40.0-70.0) H 01/23/21 05:13 Band Neutrophils % 1.0 % 01/23/21 05:13 Lymphocytes % (Manual) 3.0 % (13.4-35.0) L 01/23/21 05:13 Monocytes % (Manual) 2.0 % (0.0-7.3) 01/23/21 05:13 Nucleated RBC % Not Reportable 01/23/21 05:13 Seg Neutrophils # 7.3 K/mm3 (1.8-7.7) 01/21/21 07:34 Seg Neutrophils # Man 6.3 K/mm3 (1.8-7.7) 01/23/21 05:13 Band Neutrophils # 0.1 K/mm3 01/23/21 05:13 Lymphocytes # (Manual) 0.2 K/mm3 (1.2-5.4) L 01/23/21 05:13 Abs React Lymphs (Man) 0.0 K/mm3 01/23/21 05:13 Monocytes # (Manual) 0.1 K/mm3 (0.0-0.8) 01/23/21 05:13 Eosinophils # (Manual) 0.0 K/mm3 (0.0-0.4) 01/23/21 05:13 Basophils # (Manual) 0.0 K/mm3 (0.0-0.1) 01/23/21 05:13 Metamyelocytes # 0.0 K/mm3 01/23/21 05:13 Myelocytes # 0.0 K/mm3 01/23/21 05:13 Promyelocytes # 0.0 K/mm3 01/23/21 05:13 Blast Cells # 0.0 K/mm3 01/23/21 05:13 WBC Morphology Not Reportable 01/23/21 05:13 Hypersegmented Neuts Not Reportable 01/23/21 05:13 Hyposegmented Neuts Not Reportable 01/23/21 05:13 Hypogranular Neuts Not Reportable 01/23/21 05:13 Smudge Cells Not Reportable 01/23/21 05:13 Toxic Granulation Not Reportable 01/23/21 05:13 Toxic Vacuolation Not Reportable 01/23/21 05:13 Dohle Bodies Not Reportable 01/23/21 05:13 Pelger-Huet Anomaly Not Reportable 01/23/21 05:13 Lito Rods Not Reportable 01/23/21 05:13 Platelet Estimate Consistent w auto 01/23/21 05:13 Clumped Platelets Not Reportable 01/23/21 05:13 Plt Clumps, EDTA Not Reportable 01/23/21 05:13 Large Platelets Not Reportable 01/23/21 05:13 Giant Platelets Not Reportable 01/23/21 05:13 Platelet Satelliting Not Reportable 01/23/21 05:13 Plt Morphology Comment Not Reportable 01/23/21 05:13 RBC Morphology Not Reportable 01/23/21 05:13 Dimorphic RBCs Not Reportable 01/23/21 05:13 Polychromasia Not Reportable 01/23/21 05:13 Hypochromasia Not Reportable 01/23/21 05:13 Poikilocytosis Not Reportable 01/23/21 05:13 Anisocytosis Not Reportable 01/23/21 05:13 Microcytosis Not Reportable 01/23/21 05:13 Macrocytosis Not Reportable 01/23/21 05:13 Spherocytes Not Reportable 01/23/21 05:13 Pappenheimer Bodies Not Reportable 01/23/21 05:13 Sickle Cells Not Reportable 01/23/21 05:13 Target Cells Not Reportable 01/23/21 05:13 Tear Drop Cells Not Reportable 01/23/21 05:13 Ovalocytes Not Reportable 01/23/21 05:13 Helmet Cells Not Reportable 01/23/21 05:13 Hall-Porcupine Bodies Not Reportable 01/23/21 05:13 Walsh Rings Not Reportable 01/23/21 05:13 [place] Cells Not Reportable 01/23/21 05:13 Bite Cells Not Reportable 01/23/21 05:13 Crenated Cell Not Reportable 01/23/21 05:13 Elliptocytes Not Reportable 01/23/21 05:13 Acanthocytes (Spur) Not Reportable 01/23/21 05:13 Rouleaux Not Reportable 01/23/21 05:13 Hemoglobin C Crystals Not Reportable 01/23/21 05:13 Schistocytes Not Reportable 01/23/21 05:13 Malaria parasites Not Reportable 01/23/21 05:13 Matthew Bodies Not Reportable 01/23/21 05:13 Hem Pathologist Commnt No 01/23/21 05:13 PT 20.1 Sec. (12.2-14.9) H 01/22/21 14:52 INR 1.66 (0.87-1.13) H 01/22/21 14:52 APTT 31.8 Sec. (24.2-36.6) 01/22/21 14:52 D-Dimer 364.54 ng/mlDDU (0-234) H 01/21/21 07:34 Sodium 141 mmol/L (137-145) 01/27/21 09:05 Potassium 4.8 mmol/L (3.6-5.0) 01/27/21 09:05 Chloride 104.8 mmol/L (98-107) 01/27/21 09:05 Carbon Dioxide 28 mmol/L (22-30) 01/27/21 09:05 Anion Gap 13 mmol/L 01/27/21 09:05 BUN 23 mg/dL (9-20) H 01/27/21 09:05 Creatinine 0.6 mg/dL (0.8-1.3) L 01/28/21 07:54 Estimated GFR > 60 ml/min 01/28/21 07:54 BUN/Creatinine Ratio 33 % 01/27/21 09:05 Glucose 174 mg/dL (75-100) H 01/27/21 09:05 POC Glucose 191 mg/dL (70-105) H 01/24/21 11:10 Lactic Acid 2.10 mmol/L (0.7-2.0) H* 01/21/21 10:57 Calcium 8.5 mg/dL (8.4-10.2) 01/27/21 09:05 Magnesium 2.20 mg/dL (1.7-2.3) 01/22/21 14:43 Ferritin 1530.0 ng/mL (30.0-300.0) H 01/21/21 07:34 Total Bilirubin 0.60 mg/dL (0.1-1.2) 01/27/21 09:05 AST 30 units/L (5-40) 01/27/21 09:05 ALT 71 units/L (7-56) H 01/27/21 09:05 Alkaline Phosphatase 50 units/L (35-129) 01/27/21 09:05 Lactate Dehydrogenase 443 units/L (91-180) H 01/21/21 07:34 Troponin T < 0.010 ng/mL (0.00-0.029) 01/28/21 02:51 C-Reactive Protein 1.50 mg/dL (0.00-1.30) H 01/24/21 19:09 Total Protein 5.9 g/dL (6.3-8.2) L 01/27/21 09:05 Albumin 2.6 g/dL (3.9-5) L 01/27/21 09:05 Albumin/Globulin Ratio 0.8 % 01/27/21 09:05 Procalcitonin < 0.05 ng/mL (<0.15) 01/24/21 19:09 TSH 1.080 mlU/mL (0.270-4.200) 01/22/21 14:43 Free T4 1.06 ng/dL (0.76-1.46) 01/22/21 14:43 Coronavirus (PCR) Positive (Negative) A 01/21/21 Unknown Olmedo/IV: Voiding Method Toilet Active Medications - Current Medications Current Medications: Generic Name Dose Route Start Last Admin Trade Name Freq PRN Reason Stop Dose Admin Acetaminophen 650 mg 01/22/21 14:38 01/22/21 23:13 Acetaminophen 325 Mg Tab PO 650 mg Q4H PRN Administration Pain MILD(1-3)/Fever >100.5/MATUTE Albuterol 2.5 mg 01/22/21 14:38 Albuterol 2.5 Mg/3 Ml Nebu IH Q4HRT PRN Shortness Of Breath Ascorbic Acid 500 mg 01/22/21 22:00 01/28/21 09:56 Ascorbic Acid 500 Mg Tab PO 500 mg BID BUSHRA Administration Carvedilol 6.25 mg 01/25/21 12:00 01/28/21 09:56 Carvedilol 6.25 Mg Tab PO 6.25 mg BID BUSHRA Administration Cholecalciferol 1,000 unit 01/22/21 16:00 01/28/21 09:56 Cholecalciferol (Vit D3) 1000 Unit (25 Mcg) Tab PO 1,000 unit DAILY BUSHRA Administration Furosemide 20 mg 01/26/21 15:00 01/28/21 09:56 Furosemide 20 Mg Tab PO 20 mg QDAY BUSHRA Administration Hydromorphone HCl 0.5 mg 01/22/21 14:38 01/27/21 04:16 Hydromorphone 1 Mg/1 Ml Inj IV 0.5 mg Q24H PRN Administration Pain , Severe (7-10) Lisinopril 2.5 mg 01/25/21 12:00 01/28/21 09:56 Lisinopril 5 Mg Tab PO 2.5 mg QDAY BUSHRA Administration Methylprednisolone Sodium Succinate 60 mg 01/27/21 12:55 01/28/21 12:08 Methylprednisolone Sod Succinate 125 Mg/2 Ml Inj IV 60 mg Q6HR BUSHRA Administration Nitroglycerin 0.4 mg 01/28/21 03:03 01/28/21 03:21 Nitroglycerin 0.4 Mg Tab Subl SL 0.4 mg .Q5MIN PRN Administration Chest Pain Ondansetron HCl 4 mg 01/22/21 14:38 01/28/21 01:47 Ondansetron 4 Mg/2 Ml Inj IV 4 mg Q8H PRN Administration Nausea And Vomiting Oxycodone/Acetaminophen 1 tab 01/22/21 14:38 01/24/21 23:02 Oxycodone /Acetaminophen 5-325mg Tab PO 1 tab Q12H PRN Administration Pain, Moderate (4-6) Pantoprazole Sodium 40 mg 01/28/21 11:30 01/28/21 12:10 Pantoprazole 40 Mg Tab PO 40 mg QDAC BUSHRA Administration Rivaroxaban 20 mg 01/28/21 17:00 Rivaroxaban 20 Mg Tab PO QPMDIAB BUSHRA Protocol Sodium Chloride 10 ml 01/22/21 22:00 01/28/21 10:01 Sodium Chloride 0.9% 10 Ml Flush Syringe IV 10 ml BID BUSHRA Administration Sodium Chloride 10 ml 01/22/21 14:38 01/23/21 05:42 Sodium Chloride 0.9% 10 Ml Flush Syringe IV 10 ml PRN PRN Administration LINE FLUSH Spironolactone 25 mg 01/25/21 12:00 01/28/21 10:03 Spironolactone 25 Mg Tab PO 25 mg QDAY BUSHRA Administration Zinc Sulfate 220 mg 01/22/21 22:00 01/28/21 09:56 Zinc Sulfate 220 Mg Cap PO 220 mg BID BUSHRA Administration Nutrition/Malnutrition Assess - Dietary Evaluation Nutrition/Malnutrition Findings: Nutrition Notes Start: 01/27/21 10:23 Freq: Status: Active Protocol: Document 01/27/21 10:23 EB (Rec: 01/27/21 10:49 [id number]) Nutrition Notes Need for Assessment generated from: LOS Initial or Follow up Brief Note Current Diagnosis Respiratory Failure Other Pertinent Diagnosis Covid +, Bilateral Pneumonia, A. fib Current Diet Cardiac Labs/Tests BUN 23 Cr 0.7 Glu 174 Pertinent Medications Reviewed Height 5 ft 8.9 in Weight 81.8 kg [place] Body Weight (kg) 72.45 BMI 26.6 Intake Prior to Admission Good Weight Status Overweight Subjective/Other Information RD screen for LOS. Pt is consuming 100% of each meal on cardiac diet, but pt states he is still hungry after finishing his meals. Pt requests an ONS. Percent of energy/protein needs met: 100%/100% Burn Absent Trauma Absent GI Symptoms None Current % PO Good (75-100%) Minimum of two criteria No physical signs of malnutrition #1 Nutrition Diagnosis No nutrition diagnosis at this time Is patient on ventilator? No Is Patient Ambulatory and/or Out of Bed Yes REE-([facility]-ambulatory/OOB) [ 2550.775 [id number]] Calculation Used for Recommendations [facility] Additional Notes Protein Needs: 65g-81 g/day Fluids: 1 mL/kcal Nutrition Intervention Change Diet Order: Continue current diet Add Supplement/Snack (indicate name/kcal 1 Ensure Daily /protein ) Provides kCal: 350 Provides Protein (gm) 20 Goal #1 Continue to meet can and protein needs via PO intake Anticipated Discharge Needs: Cardiac diet Revisit per MD consult or patient Sign Off request:
[2021-01-28] MEDS ORDERED: RIVAROXABAN 20 MG TAB PO SCH (17:00)
[2021-01-28 17:56] VITALS: BP 95/66
[2021-01-28 18:36] LABS: Hematocrit 43.9 % (35.5-45.6); Hemoglobin 14.9 gm/dl (11.8-15.2); Mean Corpuscular HGB Conc 34 % (32-34); Mean Corpuscular Volume 96 fl (84-94); Platelet Count 321 K/mm3 (140-440); Red Blood Count 4.58 M/mm3 (3.65-5.03); Red Cell Distribution Width 13.4 % (13.2-15.2)
[2021-01-28 19:09] LABS: INR 1.25 (0.87-1.13); Partial Thromboplastin Time 24.5 Sec. (24.2-36.6)
[2021-01-29] MEDS ORDERED: PANTOPRAZOLE 40 MG TAB PO SCH (07:30)
== END 2021-01-28 18:40 | disposition left against medical advice (07) | DRG 177 ==
LOC: ED 06:35 → 3A 01-22 14:38
PROVIDERS: ADMIT Internal Medicine; ATTEND Internal Medicine
PROC: XW033E5 Introduction of Remdesivir Anti-infective into Peripheral Vein, Percutaneous Approach, New Technology Group 5 (ICD-10-PCS; principal; 2021-01-24)
DX: U07.1 COVID-19 (principal); J96.01 Acute respiratory failure with hypoxia; J12.82 Pneumonia due to coronavirus disease 2019; I42.0 Dilated cardiomyopathy; I48.20 Chronic atrial fibrillation, unspecified; Z79.01 Long term (current) use of anticoagulants; Z90.49 Acquired absence of other specified parts of digestive tract; E87.6 Hypokalemia; Z91.14 Patient's other noncompliance with medication regimen; Z53.29 Procedure and treatment not carried out because of patient's decision for other reasons
CPT/HCPCS: 36415; 71045; 71275; 80048; 80053; 82140; 82565; 82728; 82962; 83615; 83735; 84145; 84439; 84443; 84484; 85007; 85025; 85027; 85379; 85610; 85730; 86140; 87040; 93005; 93306; 94760; G0378; J0456; J0696; J1100; J1170; J1940; J2270; J2405; J2920; J2930; J7030; J7050; Q9967; U0003

== ENCOUNTER 2021-09-15 09:52 | Outpatient (CLI) | payer OTHER ==
--- NOTE | 2021-09-15 11:30 | XRay Report ---
Lumbar spine 3 views INDICATION: Back pain FINDINGS: Discogenic degenerative changes seen throughout spine. Endplate changes and anterior compliance nurse ior disc osteophytes throughout. There may be pars defects at L5 however no significant subluxation Signer Name: Ramírez Wagner MD Signed: 09/15/2021 11:26 AM Workstation Name: [id number]
--- NOTE | 2021-09-15 12:01 | XRay Report ---
CERVICAL SPINE 4 VIEWS INDICATION: NECK PAIN. COMPARISON: None. IMPRESSION: Normal alignment. 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 The f acet joints appear unremarkable. No acute osseous or soft tissue abnormality. Signer Name: Adam Sweet Jr, MD Signed: 09/15/2021 11:57 AM Workstation Name: [id number]
== END 2021-09-15 09:53 | disposition home or self-care (01) ==
LOC: XRAY 09:52
PROVIDERS: ATTEND Internal Medicine
DX: M47.812 Spondylosis without myelopathy or radiculopathy, cervical region (principal); M51.37 Other intervertebral disc degeneration, lumbosacral region; M25.78 Osteophyte, vertebrae
CPT/HCPCS: 72040; 72100